=== PATIENT | female | born 1935 | race Caucasian/White ===

== ENCOUNTER → 2018-04-09 09:50 | Outpatient (CLI) | payer MEDICARE, SELFPAY ==
--- NOTE | 2018-04-09 | DI.MG.S_ITS ---
UNILATERAL RIGHT DIGITAL SCREENING MAMMOGRAM 3D/2D WITH CAD POST MASTECTOMY: 04/09/2018 CLINICAL: Routine screening. Personal history of left breast cancer. Comparison is made to exams dated: 01/11/2017 mammogram, 11/22/2015 mammogram, and 03/23/2014 mammogram - [facility]. There are scattered fibroglandular elements in the right breast. Current study was also evaluated with a Computer Aided Detection (CAD) system. No significant masses, calcifications, or other findings are seen in the breast. There has been no significant interval change. IMPRESSION: NEGATIVE There is no mammographic evidence of malignancy. A 1 year screening mammogram is recommended. This exam was interpreted at Station ID: [id number]. NOTE: For mammograms, a report in lay terms will be sent to the patient. Approximately 15% of breast malignancies will not be visualized mammographically. In the management of a palpable breast mass, a negative mammogram must not discourage biopsy of a clinically suspicious lesion. Electronically Signed By: Rosalia lopez/ravinder:04/09/2018 11:25:15 letter sent: Normal Exam ACR BI-RADS Category 1: Negative 3341F
== END ==
PROVIDERS: PCP Family Medicine; Visit Provider Family Medicine
DX: Z12.31 Encounter for screening mammogram for malignant neoplasm of breast (principal); Z85.3 Personal history of malignant neoplasm of breast
CPT/HCPCS: 77063; 77065

== ENCOUNTER 2018-05-14 09:46 | Day surgery (SDC) | payer MEDICARE, SELFPAY ==
--- NOTE | 2018-05-14 | PATH_ITS ---
[facility] Accession Number: [id number] . 01 Material submitted: . RANDOM COLON BIOPSY . 02 Diagnosis: Random Colon Biopsies: Changes consistent with collagenous colitis. . . COMMENT: Case reviewed by Dr. Robbie Wilburn, who agrees with the diagnosis. MRV/05/15/2018 . 02 Electronically signed: . Regulo Kumar MD, Pathologist NPI- [id number] . 01 Gross description: . Received one formalin-filled container labeled with the patient's name and labeled random colon. The specimen consists of multiple less than 0.1 cm to 0.3 cm portions of tissue, entirely submitted in one cassette. (DC:[id number]) /FRR . 02 Pathologist provided ICD-10: K52.89 . 02 CPT . 915250 Performed at: 01 [facility] [address] [facility], [place], [place] [id number] MD Vamshi Whitney MD Phone: [phone] Performed at: 02 [facility] [address] [place], [place] [id number] MD Italo Mayen MD Phone: [phone]
[2018-05-14] MEDS: SODIUM CHLORIDE 0.9% 1,000 ML 200 ML IV (10:10)
[2018-05-14 10:42] VITALS: BP 133/77; PULSE 64; RESP 18; TEMP 36.1; O2SAT 94
[2018-05-14] MEDS: TETRACAINE/BENZOCAINE/BUTAMBEN (CETACAINE) BOTTLE 1 SPRAY TOP (10:59)
--- NOTE | 2018-05-14 10:59 | PM.HP.1 ---
History of Present Illness Date Patient Seen: 05/14/18 Time Patient Seen: 10:45 Chief complaint: egd colonoscopy [id number] Narrative: Patient is a woman her for an EGD and colonoscopy. She has chronic reflux disease and has had some changes in her bowel habits. Patient History Medical History Essential hypertension with goal blood pressure less than 130/85 (Chronic) Hypothyroidism (Chronic) History of left breast cancer (Resolved) History of endometriosis (Inactive) Surgical History H/O hysterectomy for benign disease (Resolved) History of 3 sections (Resolved) History of appendectomy (Resolved) History of modified radical mastectomy (Resolved) History of total bilateral knee replacement (Resolved) Family & Social History Family History: Reviewed 05/14/18 by Onesimo Vieira MD Social History: household members spouse Tobacco & Substance use: Smoking Status Never smoker alcohol intake current Meds Home Medications Medication Instructions Recorded Confirmed Type FLUNISOLIDE 250MCG INHALER- 1 spray INH Q DAY #0 08/04/07 05/14/18 History (Aerobid) MULTIVITAMIN (Multivitamin 1 cap PO EVERY DAY #0 08/04/07 05/14/18 History -) CHOLECALCIFEROL (VITAMIN D3) 1,000 units PO QDAY #0 03/05/13 05/14/18 History (VITAMIN D3) Fish Oil (FISH OIL~) 1,200 mg PO QDAY #0 03/05/13 05/14/18 History [VITAMIN B 12] 1 cc IM [id number] #0 03/05/13 05/14/18 History aspirin 81 mg PO QDAY #0 03/05/13 05/14/18 History cyclosporine [Restasis] 1 drp OPHTH QAM #0 03/05/13 05/14/18 History ibuprofen [Advil] 200 mg PO QDAYP PRN #0 03/05/13 05/14/18 History metoprolol tartrate 12.5 mg PO QDAYP #0 03/05/13 05/14/18 History calcium carbonate 600 mg calcium 600 mg PO BID tab 04/12/18 05/14/18 History (1,500 mg) tablet famotidine 10 mg tablet 10 mg PO PRN PRN 04/12/18 05/14/18 History ferrous gluconate 324 mg (36 mg 324 mg PO DAILY tab 04/12/18 05/14/18 History iron) tablet levothyroxine 50 mcg tablet See Label Instructions .ROUTE 04/12/18 05/14/18 History .COMPLEX nystatin 100,000 unit/gram topical 1 applictn TOP BID PRN 04/12/18 05/14/18 History cream fexofenadine [Corina Allergy] 180 mg PO DAILY 05/14/18 05/14/18 History levothyroxine See Label Instructions .ROUTE 05/14/18 05/14/18 History .COMPLEX methylcellulose (laxative) 500 mg PO DAILY 05/14/18 05/14/18 History [Citrucel] psyllium husk [Metamucil] 0.4 g PO DAILY 05/14/18 05/14/18 History Allergies Allergy/AdvReac Type Severity Reaction Status Date / Time ciprofloxacin [From CIPRO] Allergy Mild itching Verified 05/14/18 10:38 atorvastatin [From Lipitor] Allergy muscles Verified 04/12/18 13:21 stop working Sulfa (Sulfonamide AdvReac Severe n\v Verified 05/14/18 10:38 Antibiotics) [SULFA (SULFONAMIDE ANTIBIOTICS)] adhesive [ADHESIVE] AdvReac Mild some Verified 05/14/18 10:38 tapes, redness and itching hydroxyzine [From Vistaril] AdvReac bad Verified 04/12/18 13:21 muscle spasms levothyroxine AdvReac colitis Verified 04/12/18 13:21 and diarrhea Review of Systems Review of Systems Denies any cardiopulmonary neurovascular symptoms at this time. Most of her symptoms relate to her abdomen and change in her bowel habits. She alternates between constipation and diarrhea. She has a history of lymphocytic colitis. Exam Vital Signs (past 8 hours): - 05/14/18 10:42 Temperature 96.9 F L Pulse Rate 64 Respiratory Rate 18 Blood Pressure 133/77 Pulse Oximetry 94 Oxygen Delivery Method Room Air Narrative Exam Narrative: Petite cooperative woman in no apparent distress. Lungs are clear to auscultation. Heart regular rate and rhythm without murmur gallop. Abdomen is scaphoid soft nontender without mass. Patient is alert and oriented x3. Assessment & Plan Plan: Assessment/Plan Narrative: For EGD and colonoscopy. I have discussed the procedure and the rationale with the patient including risks of bleeding, perforation which would necessitate a major operation, failure to find remove all lesions and the potential to tattoo. They appeared to understand and wished to proceed.
[2018-05-14] MEDS: LIDOCAINE 4% SOLN 50 ML 20 ML TOP (11:00)
--- NOTE | 2018-05-14 11:02 | PM.PREOP ---
Pre-operative Note Interval Note Pre-op Check: Yes History & Physical exam performed today by Physician Changes: No ASA Class (for procedural sedation): III
[2018-05-14] MEDS: MIDAZOLAM 5 MG/5 ML VIAL IV (11:35)
[2018-05-14] MEDS: fentaNYL 250 MCG/5 ML INJ IV (11:36)
[2018-05-14 11:47] VITALS: BP 83/49; PULSE 60; RESP 11; TEMP 36.6; O2SAT 92
[2018-05-14 11:52] VITALS: BP 87/56; PULSE 79; RESP 14; O2SAT 93
--- NOTE | 2018-05-14 11:53 | P.OP.ENDO_ITS ---
Operative Date/Time/Diagnoses Date of procedure: 05/14/18 Time of procedure: 11:43 Pre-op diagnosis: Chronic reflux with cough. And voice changes. Screening exam. Change in bowel habits. History of lymphocytic colitis. Post-op diagnosis: same (Very granular surface of the colon right worse than left. Random biopsies taken. Tortuous colon. 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 Change in bowel habits. Surgeon: Onesimo Vieira Procedure Notes SCOAP/Timeout: Performed Procedure in detail: The patient had topical anesthetic applied to oropharynx. She was placed in left lateral decubitus position and underwent IV sedation directed by the surgeon consisting of fentanyl and Versed. A bite block was inserted and the scope was advanced through it. I examined the cord structures and supraglottic larynx and everything looked normal. However on the right side there appeared to be a diverticulum in the pharynx adjacent to the larynx. I could not see a similar structure on the opposite side. It was wide mouthed and shallow. The esophagus was unremarkable. GE junction was noted at[31 cm from the incisors.]. The stomach insufflated well. There were no lesions seen in the body, antrum or at the incisura. The pyloric channel was [patent]. The duodenum was unremarkable to the 4th part except for perhaps some mild duodenitis of the bulb. The scope was brought back into the stomach and retroflexed. The proximal stomach appeared to be normal. I really could not see any evidence of a hiatal hernia.. The scope was straightened and brought out through the esophagus again. No lesions were seen. The scope was removed very slowly with no additional findings noted. the patient tolerated the procedure well. The patient was repositioned and given additional sedation. The patient was placed in the left lateral decubitus position and underwent IV sedation directed by the surgeon consisting of fentanyl and Versed. Digital exam was[ unremarkable]. The scope was inserted and advanced through the rectum into the sigmoid, descending, transverse, and ascending colon.[The patient had to be repositioned and a stiffener inserted in order to get all the way to the cecum. The colon was somewhat tortuous.]. The cecum was reached identified by the ileocecal valve and the appendiceal opening. The colon surface mucosa was somewhat granular especially on the right side. In fact the cecum was worse than anything and adjacent to the appendiceal opening was quite granular. I did random biopsies of the cecum The scope was gradually brought out and I did random biopsies as I came out. No Polyps were found. The scope ultimately was retroflexed in the rectum. The appearance was[normal except for internal hemorrhoids.]. The scope was removed and the patient tolerated the procedure well Findings: internal hemorrhoids and other findings (Diverticulum adjacent to the larynx. Granular surface of the colon.) Specimen(s): other (Random colon biopsies) Complications: none Recommendations: Other recommendation (Patient may not need any further studies. ) Follow up: as needed Disposition: PACU
[2018-05-14 11:57] VITALS: BP 95/64; PULSE 64; RESP 12; TEMP 36.6; O2SAT 93
[2018-05-14 12:15] VITALS: BP 103/57; PULSE 65; RESP 14; TEMP 36.6; O2SAT 95
[2018-05-14 12:45] VITALS: BP 102/68; PULSE 65; RESP 18; O2SAT 100
--- NOTE | 2018-05-14 13:01 | SUR.PHASEII ---
pt d/peg with pt able to stand and dress without difficulty. pt taking po fluids and crackers without difficulty. denies any complaints.
== END 2018-05-14 13:00 | disposition home or self-care (01) ==
PROVIDERS: PCP Family Medicine; Visit Provider Specialist
PROC: 0DJ08ZZ Inspection of Upper Intestinal Tract, Via Natural or Artificial Opening Endoscopic (ICD-10-PCS; CPT 43235; principal; 2018-05-14 11:45)
PROC: 0DJD8ZZ Inspection of Lower Intestinal Tract, Via Natural or Artificial Opening Endoscopic (ICD-10-PCS; CPT 45378; 2018-05-14 11:45)
DX: K52.89 Other specified noninfective gastroenteritis and colitis (principal); R49.9 Unspecified voice and resonance disorder; K21.9 Gastro-esophageal reflux disease without esophagitis; Z87.19 Personal history of other diseases of the digestive system; I10 Essential (primary) hypertension; E03.9 Hypothyroidism, unspecified; K64.8 Other hemorrhoids; Q39.6 Congenital diverticulum of esophagus
CPT/HCPCS: 45380; 43235; 88305; J2250; J3010

== ENCOUNTER → 2018-05-22 08:48 | Outpatient (CLI) | payer MEDICARE, SELFPAY ==
[2018-05-22 09:27] LABS: Alanine Aminotransferase 25 IU/L (9-52); Albumin 4.2 g/dL (3.5-5.0); Albumin Globulin Ratio 1.4 (1.0-2.8); Alkaline Phosphatase 81 U/L (38-126); Aspartate Aminotransferase 34 IU/L (14-36); BUN Creatinine Ratio 22.9 (6-22); Bilirubin Total 0.6 mg/dL (0.2-1.3); Blood Urea Nitrogen 16 mg/dL (7-17); Calcium 9.6 mg/dL (8.4-10.2); Carbon Dioxide 31 mmol/L (22-32); Chloride 102 mmol/L (98-107); Cholesterol 207 mg/dL (140-199); Estimated Glomerular Filt Rate > 60.0 mL/min (>60); Glucose 87 mg/dL (80-110); HDL Cholesterol 74 mg/dL (40-60); HEMOLYSIS < 15 (0-50); LDL Cholesterol Calculated 121 mg/dL (<100); Potassium 4.2 mmol/L (3.4-5.1); Sodium 142 mmol/L (137-145); Total Protein 7.2 g/dL (6.3-8.2); Triglycerides 62 mg/dL (35-150)
[2018-05-22 10:07] LABS: Free T4, Direct Thyroxine 1.33 ng/dL (0.78-2.19)
[2018-05-22 10:21] LABS: Thyroid Stimulating Hormone 0.86 uIU/mL (0.47-4.68)
== END ==
PROVIDERS: PCP Family Medicine; Visit Provider Family Medicine
DX: E03.9 Hypothyroidism, unspecified (principal); E78.5 Hyperlipidemia, unspecified; D64.9 Anemia, unspecified
CPT/HCPCS: 36415; 80053; 80061; 84439; 84443

== ENCOUNTER → 2018-06-26 10:34 | Outpatient (CLI) | payer MEDICARE, SELFPAY ==
--- NOTE | 2018-06-26 | DI.RAD.S_ITS ---
PROCEDURE: XR CHEST 2V INDICATIONS: COUGH TECHNIQUE: 2 views of the chest were acquired. COMPARISON: None. FINDINGS: Surgical changes and devices: None. Lungs and pleura: No pleural effusions or pneumothorax. Lungs are clear. Mediastinum: Mediastinal contours are normal. Heart size is normal. Bones and chest wall: No suspicious bony abnormalities. Soft tissues appear unremarkable. IMPRESSION: Normal for age. Dictated by: Cory Patel M.D. on 06/26/2018 at 11:47 Approved by: Cory Patel M.D. on 06/26/2018 at 11:47
== END ==
PROVIDERS: PCP Family Medicine; Visit Provider Family Medicine
DX: R05 Cough (principal)
CPT/HCPCS: 71046

== ENCOUNTER 2018-08-13 10:30 | Outpatient (RCR) | payer MEDICARE, SELFPAY | END 2018-08-13 15:05 | LOC: SP 10:30 | PROVIDERS: Family Provider Family Medicine; PCP Family Medicine; Visit Provider Otolaryngology | DX: R49.0 Dysphonia (principal) | CPT/HCPCS: 92507; 92524 ==

== ENCOUNTER → 2018-12-18 09:09 | Outpatient (CLI) | payer MEDICARE, SELFPAY ==
[2018-12-18 10:43] LABS: Alanine Aminotransferase 25 IU/L (9-52); Albumin 4.2 g/dL (3.5-5.0); Albumin Globulin Ratio 1.4 (1.0-2.8); Alkaline Phosphatase 78 U/L (38-126); Aspartate Aminotransferase 36 IU/L (14-36); BUN Creatinine Ratio 27.1 (6-22); Bilirubin Total 0.5 mg/dL (0.2-1.3); Blood Urea Nitrogen 19 mg/dL (7-17); Calcium 9.6 mg/dL (8.4-10.2); Carbon Dioxide 28 mmol/L (22-32); Chloride 102 mmol/L (98-107); Cholesterol 218 mg/dL (140-199); Estimated Glomerular Filt Rate > 60.0 mL/min (>60); Globulin 3.1 g/dL (1.7-4.1); Glucose 85 mg/dL (80-110); HDL Cholesterol 81 mg/dL (40-60); HEMOLYSIS < 15 (0-50); LDL Cholesterol Calculated 126 mg/dL (<100); Potassium 4.6 mmol/L (3.4-5.1); Sodium 137 mmol/L (137-145); Total Protein 7.3 g/dL (6.3-8.2); Triglycerides 57 mg/dL (35-150)
[2018-12-18 11:05] LABS: Add Manual Diff / Slide Review NO; Basophils Absolute Auto 0 /uL (0-100); Eosinophils Absolute Auto 100 /uL (0-450); Eosinophils Percent Auto 3.7 % (2-4); Hematocrit 38.9 % (36-46); Hemoglobin 13.4 g/dL (12.0-16.0); Lymphocytes Absolute Auto 1400 /uL (1100-4500); Lymphocytes Percent Auto 36.3 % (25-40); Mean Corpuscular HGB Conc 34.6 % (30-36); Mean Corpuscular Volume 92.6 fL (80-100); Monocytes Absolute Auto 400 /uL (0-900); Monocytes Percent Auto 10.5 % (3-14); Neutrophils Absolute Auto 1800 /uL (1500-7000); Neutrophils Percent Auto 48.5 % (50-75); Platelet Count 234 X10^3/uL (150-400); Red Cell Distribution Width 12.8 % (11.6-14.8); White Blood Cell Count 3.8 X10^3/uL (4.5-11.0)
[2018-12-18 11:54] LABS: Free T4, Direct Thyroxine 1.49 ng/dL (0.78-2.19)
[2018-12-18 12:08] LABS: Thyroid Stimulating Hormone 0.54 uIU/mL (0.47-4.68)
== END ==
PROVIDERS: PCP Family Medicine; Visit Provider Family Medicine
DX: E03.9 Hypothyroidism, unspecified (principal); E78.5 Hyperlipidemia, unspecified; D64.9 Anemia, unspecified
CPT/HCPCS: 36415; 80053; 80061; 84439; 84443; 85025

== ENCOUNTER → 2019-04-11 11:30 | Outpatient (CLI) | payer MEDICARE, SELFPAY ==
--- NOTE | 2019-04-11 | DI.MG.S_ITS ---
UNILATERAL RIGHT DIGITAL SCREENING MAMMOGRAM 3D/2D WITH CAD: 04/11/2019 CLINICAL: Routine screening. Personal history of left breast cancer. Comparison is made to exams dated: 04/09/2018 mammogram, 01/11/2017 mammogram, 11/22/2015 mammogram, 03/23/2014 mammogram, 02/28/2013 mammogram, and 06/14/2010 mammogram - [facility]. There are scattered fibroglandular elements in right breast. Current study was also evaluated with a Computer Aided Detection (CAD) system. No significant masses, calcifications, or other findings are seen in the breast. There has been no significant interval change. IMPRESSION: NEGATIVE There is no mammographic evidence of malignancy. A 1 year screening mammogram is recommended. This exam was interpreted at Station ID: [id number]. NOTE: For mammograms, a report in lay terms will be sent to the patient. Approximately 15% of breast malignancies will not be visualized mammographically. In the management of a palpable breast mass, a negative mammogram must not discourage biopsy of a clinically suspicious lesion. Electronically Signed By: Rolo mcnulty/ravinder:04/11/2019 12:39:36 letter sent: Normal Exam ACR BI-RADS Category 1: Negative 3341F
== END ==
PROVIDERS: PCP Family Medicine; Visit Provider Family Medicine
DX: Z12.31 Encounter for screening mammogram for malignant neoplasm of breast (principal); Z85.3 Personal history of malignant neoplasm of breast
CPT/HCPCS: 77063; 77067

== ENCOUNTER → 2019-06-24 09:10 | Outpatient (CLI) | payer MEDICARE, SELFPAY ==
[2019-06-24 10:45] LABS: Add Manual Diff / Slide Review NO; Basophils Absolute Auto 0 /uL (0-100); Basophils Percent Auto 0.5 % (0-2); Eosinophils Absolute Auto 100 /uL (0-450); Eosinophils Percent Auto 3.4 % (2-4); Hematocrit 33.4 % (36-46); Hemoglobin 13.5 g/dL (12.0-16.0); Lymphocytes Absolute Auto 1100 /uL (1100-4500); Lymphocytes Percent Auto 32.3 % (25-40); Mean Corpuscular HGB Conc 40.6 % (30-36); Mean Corpuscular Hemoglobin 40.4 PG (26-34); Mean Corpuscular Volume 99.6 fL (80-100); Monocytes Absolute Auto 400 /uL (0-900); Monocytes Percent Auto 10.2 % (3-14); Neutrophils Absolute Auto 1900 /uL (1500-7000); Neutrophils Percent Auto 53.6 % (50-75); Platelet Count 248 X10^3/uL (150-400); Red Blood Cell Count 3.35 X10^6/uL (4.0-5.2); Red Cell Distribution Width 12.8 % (11.6-14.8); White Blood Cell Count 3.5 X10^3/uL (4.5-11.0)
[2019-06-24 10:56] LABS: Alanine Aminotransferase 23 IU/L (9-52); Albumin 4.4 g/dL (3.5-5.0); Albumin Globulin Ratio 1.4 (1.0-2.8); Alkaline Phosphatase 88 U/L (38-126); Aspartate Aminotransferase 39 IU/L (14-36); Bilirubin Total 0.6 mg/dL (0.2-1.3); Blood Urea Nitrogen 21 mg/dL (7-17); Calcium 9.4 mg/dL (8.4-10.2); Carbon Dioxide 28 mmol/L (22-32); Chloride 102 mmol/L (98-107); Cholesterol 218 mg/dL (140-199); Estimated Glomerular Filt Rate > 60.0 mL/min (>60); Globulin 3.1 g/dL (1.7-4.1); Glucose 87 mg/dL (80-110); HDL Cholesterol 76 mg/dL (40-60); HEMOLYSIS < 15 (0-50); LDL Cholesterol Calculated 131 mg/dL (<100); Potassium 4.6 mmol/L (3.4-5.1); Sodium 138 mmol/L (137-145); Total Protein 7.5 g/dL (6.3-8.2); Triglycerides 57 mg/dL (35-150)
[2019-06-24 11:28] LABS: Free T4, Direct Thyroxine 1.47 ng/dL (0.78-2.19)
[2019-06-24 11:42] LABS: Thyroid Stimulating Hormone 0.82 uIU/mL (0.47-4.68)
== END ==
PROVIDERS: PCP Family Medicine; Visit Provider Family Medicine
DX: E03.9 Hypothyroidism, unspecified (principal); E78.5 Hyperlipidemia, unspecified; D70.9 Neutropenia, unspecified
CPT/HCPCS: 36415; 80053; 80061; 84439; 84443; 85025

== ENCOUNTER → 2019-12-26 09:17 | Outpatient (CLI) | payer MEDICARE, SELFPAY ==
[2019-12-26 10:27] LABS: Add Manual Diff / Slide Review NO; Basophils Absolute Auto 100 /uL (0-100); Basophils Percent Auto 1.2 % (0-2); Eosinophils Absolute Auto 200 /uL (0-450); Eosinophils Percent Auto 3.3 % (2-4); Hematocrit 38.3 % (36-46); Hemoglobin 13.4 g/dL (12.0-16.0); Lymphocytes Absolute Auto 1700 /uL (1100-4500); Mean Corpuscular HGB Conc 35.1 % (30-36); Mean Corpuscular Hemoglobin 32.8 PG (26-34); Mean Corpuscular Volume 93.6 fL (80-100); Monocytes Absolute Auto 600 /uL (0-900); Monocytes Percent Auto 12.1 % (3-14); Neutrophils Absolute Auto 2600 /uL (1500-7000); Neutrophils Percent Auto 50.4 % (50-75); Platelet Count 267 X10^3/uL (150-400); Red Blood Cell Count 4.09 X10^6/uL (4.0-5.2); Red Cell Distribution Width 13.3 % (11.6-14.8); White Blood Cell Count 5.2 X10^3/uL (4.5-11.0)
[2019-12-26 10:43] LABS: Alanine Aminotransferase 23 IU/L (<35); Albumin 4.6 g/dL (3.5-5.0); Albumin Globulin Ratio 1.4 (1.0-2.8); Alkaline Phosphatase 104 U/L (38-126); Aspartate Aminotransferase 36 IU/L (14-36); BUN Creatinine Ratio 32.3 (6-22); Bilirubin Total 0.4 mg/dL (0.2-1.3); Blood Urea Nitrogen 21 mg/dL (7-17); Calcium 9.6 mg/dL (8.4-10.2); Carbon Dioxide 25 mmol/L (22-32); Chloride 104 mmol/L (98-107); Cholesterol 220 mg/dL (140-199); Estimated Glomerular Filt Rate > 60.0 mL/min (>60); Globulin 3.3 g/dL (1.7-4.1); Glucose 97 mg/dL (80-110); HDL Cholesterol 78 mg/dL (40-60); HEMOLYSIS < 15 (0-50); LDL Cholesterol Calculated 131 mg/dL (<100); Potassium 4.4 mmol/L (3.4-5.1); Sodium 136 mmol/L (137-145); Total Protein 7.9 g/dL (6.3-8.2); Triglycerides 55 mg/dL (35-150)
[2019-12-26 11:38] LABS: Free T4, Direct Thyroxine 1.34 ng/dL (0.78-2.19)
[2019-12-26 11:52] LABS: Thyroid Stimulating Hormone 1.28 uIU/mL (0.47-4.68)
== END ==
PROVIDERS: PCP Family Medicine; Referring Provider Family Medicine; Visit Provider Family Medicine
DX: E03.9 Hypothyroidism, unspecified (principal); E78.5 Hyperlipidemia, unspecified; D70.9 Neutropenia, unspecified; D64.9 Anemia, unspecified
CPT/HCPCS: 36415; 80053; 80061; 84439; 84443; 85025

== ENCOUNTER → 2020-05-26 16:45 | Outpatient (CLI) | payer MEDICARE, SELFPAY ==
--- NOTE | 2020-05-26 | DI.MG.S_ITS ---
UNILATERAL RIGHT DIGITAL SCREENING MAMMOGRAM 3D/2D WITH CAD: 05/26/2020 CLINICAL: Routine screening. Breast cancer. Comparison is made to exams dated: 04/11/2019 mammogram, 04/09/2018 mammogram, and 01/11/2017 mammogram - [facility]. There are scattered fibroglandular elements in right breast. Current study was also evaluated with a Computer Aided Detection (CAD) system. No significant masses, calcifications, or other findings are seen in the breast. There has been no significant interval change. IMPRESSION: NEGATIVE There is no mammographic evidence of malignancy. A 1 year screening mammogram is recommended. This exam was interpreted at Station ID: [id number]. NOTE: For mammograms, a report in lay terms will be sent to the patient. Approximately 15% of breast malignancies will not be visualized mammographically. In the management of a palpable breast mass, a negative mammogram must not discourage biopsy of a clinically suspicious lesion. Electronically Signed By: James dunlap/ravinder:05/27/2020 07:49:45 letter sent: Normal Exam ACR BI-RADS Category 1: Negative 3341F
== END ==
PROVIDERS: PCP Family Medicine; Referring Provider Family Medicine; Visit Provider Family Medicine
DX: Z12.31 Encounter for screening mammogram for malignant neoplasm of breast (principal); Z85.3 Personal history of malignant neoplasm of breast
CPT/HCPCS: 77063; 77067

== ENCOUNTER → 2020-06-10 09:22 | Outpatient (CLI) | payer MEDICARE, SELFPAY ==
[2020-06-10 10:48] LABS: Add Manual Diff / Slide Review NO; Basophils Absolute Auto 200 /uL (0-100); Basophils Percent Auto 3.3 % (0-2); Eosinophils Absolute Auto 100 /uL (0-450); Eosinophils Percent Auto 1.9 % (2-4); Hematocrit 37.6 % (36-46); Hemoglobin 12.8 g/dL (12.0-16.0); Lymphocytes Absolute Auto 1600 /uL (1100-4500); Lymphocytes Percent Auto 27.5 % (25-40); Mean Corpuscular HGB Conc 33.9 % (30-36); Mean Corpuscular Hemoglobin 31.6 PG (26-34); Mean Corpuscular Volume 93.2 fL (80-100); Monocytes Absolute Auto 500 /uL (0-900); Monocytes Percent Auto 8.1 % (3-14); Neutrophils Absolute Auto 3500 /uL (1500-7000); Neutrophils Percent Auto 59.2 % (50-75); Platelet Count 251 X10^3/uL (150-400); Red Blood Cell Count 4.03 X10^6/uL (4.0-5.2); Red Cell Distribution Width 13.2 % (11.6-14.8)
[2020-06-10 11:01] LABS: Alanine Aminotransferase 22 IU/L (<35); Albumin Globulin Ratio 1.3 (1.0-2.8); Alkaline Phosphatase 95 U/L (38-126); Aspartate Aminotransferase 33 IU/L (14-36); BUN Creatinine Ratio 34.3 (6-22); Bilirubin Total 0.5 mg/dL (0.2-1.3); Blood Urea Nitrogen 24 mg/dL (7-17); Calcium 9.3 mg/dL (8.4-10.2); Carbon Dioxide 28 mmol/L (22-32); Chloride 102 mmol/L (98-107); Estimated Glomerular Filt Rate > 60.0 mL/min (>60); Glucose 91 mg/dL (80-110); HEMOLYSIS < 15 (0-50); Potassium 4.5 mmol/L (3.4-5.1); Sodium 136 mmol/L (137-145)
[2020-06-10 11:17] LABS: Free T4, Direct Thyroxine 1.28 ng/dL (0.78-2.19)
[2020-06-10 11:31] LABS: Thyroid Stimulating Hormone 0.779 uIU/mL (0.47-4.68)
== END ==
PROVIDERS: PCP Family Medicine; Referring Provider Family Medicine; Visit Provider Family Medicine
DX: D70.9 Neutropenia, unspecified (principal); D64.9 Anemia, unspecified; D75.89 Other specified diseases of blood and blood-forming organs; Z85.3 Personal history of malignant neoplasm of breast; N32.81 Overactive bladder; E03.9 Hypothyroidism, unspecified; I48.0 Paroxysmal atrial fibrillation
CPT/HCPCS: 36415; 80053; 84439; 84443; 85025

== ENCOUNTER → 2020-06-28 14:49 | Outpatient (CLI) | payer MEDICARE, SELFPAY ==
--- NOTE | 2020-06-28 | DI.MG.S_ITS ---
UNILATERAL RIGHT DIGITAL DIAGNOSTIC MAMMOGRAM 3D/2D POST MASTECTOMY: 06/28/2020 CLINICAL: Right breast mass. Comparison is made to exams dated: 05/26/2020 mammogram, 04/11/2019 mammogram, and 04/09/2018 mammogram - [facility]. There are scattered fibroglandular elements in right breast. No significant masses, calcifications, or other findings are seen in the breast. Specifically, no finding to correspond to the patient's palpable abnormality. IMPRESSION: INCOMPLETE: NEEDS ADDITIONAL IMAGING EVALUATION There is no abnormality seen in the right breast to correspond with the palpable abnormality at 10 o'clock, however, ultrasound is recommended. This was performed immediately following this exam. Future imaging is recommended as follows: 05/27/2021 screening mammogram. This exam was interpreted at Station ID: [id number]. NOTE: For mammograms, a report in lay terms will be sent to the patient. Approximately 15% of breast malignancies will not be visualized mammographically. In the management of a palpable breast mass, a negative mammogram must not discourage biopsy of a clinically suspicious lesion. Electronically Signed By: Keren noyola/:06/28/2020 15:33:07 ACR BI-RADS Category 0: Incomplete [id number]
--- NOTE | 2020-06-28 | DI.US.S_ITS ---
ULTRASOUND OF RIGHT BREAST: 06/28/2020 CLINICAL: Palpable right breast lump and focal pain. Comparison is made to exams dated: 06/28/2020 mammogram, 05/26/2020 mammogram, 04/11/2019 mammogram, 04/09/2018 mammogram, 01/11/2017 mammogram, and 11/22/2015 mammogram - [facility]. Real-time ultrasound of the right breast was performed. [place] scale images of the real-time examination were reviewed. No significant abnormalities were seen sonographically in the right breast. Specifically, no finding to correspond to the patient's palpable abnormality. IMPRESSION: NEGATIVE There is no sonographic correlate to the patient's palpable abnormality and no evidence of malignancy. Return to annual mammogram screening schedule is recommended. 05/27/2021 Findings and recommendations were conveyed to the patient at time of exam. This exam was interpreted at Station ID: [id number]. Electronically Signed By: Keren noyola/:06/28/2020 16:09:21 letter sent: Normal Exam Ultrasound BI-RADS: 1 Negative
== END ==
PROVIDERS: PCP Family Medicine; Referring Provider Family Medicine; Visit Provider Family Medicine
DX: R92.8 Other abnormal and inconclusive findings on diagnostic imaging of breast (principal); N63.10 Unspecified lump in the right breast, unspecified quadrant
CPT/HCPCS: 76642; 77065; G0279

== ENCOUNTER → 2020-09-28 09:02 | Outpatient (CLI) | payer MEDICARE, SELFPAY ==
[2020-09-28 10:44] LABS: Alanine Aminotransferase 25 IU/L (<35); Albumin 4.2 g/dL (3.5-5.0); Albumin Globulin Ratio 1.3 (1.0-2.8); Alkaline Phosphatase 94 U/L (38-126); Aspartate Aminotransferase 34 IU/L (14-36); BUN Creatinine Ratio 33.3 (6-22); Bilirubin Total 0.3 mg/dL (0.2-1.3); Blood Urea Nitrogen 23 mg/dL (7-17); Calcium 9.6 mg/dL (8.4-10.2); Carbon Dioxide 30 mmol/L (22-32); Chloride 104 mmol/L (98-107); Estimated Glomerular Filt Rate > 60.0 mL/min (>60); Globulin 3.2 g/dL (1.7-4.1); Glucose 96 mg/dL (80-110); HEMOLYSIS < 15 (0-50); Potassium 4.6 mmol/L (3.4-5.1); Sodium 135 mmol/L (137-145); Total Protein 7.4 g/dL (6.3-8.2)
[2020-09-28 10:47] LABS: Add Manual Diff / Slide Review NO; Basophils Absolute Auto 0 /uL (0-100); Basophils Percent Auto 0.5 % (0-2); Eosinophils Absolute Auto 100 /uL (0-450); Eosinophils Percent Auto 2.5 % (2-4); Hematocrit 39.6 % (36-46); Hemoglobin 13.3 g/dL (12.0-16.0); Lymphocytes Absolute Auto 1600 /uL (1100-4500); Lymphocytes Percent Auto 34.2 % (25-40); Mean Corpuscular HGB Conc 33.5 % (30-36); Mean Corpuscular Hemoglobin 31.4 PG (26-34); Mean Corpuscular Volume 93.9 fL (80-100); Monocytes Absolute Auto 600 /uL (0-900); Neutrophils Absolute Auto 2400 /uL (1500-7000); Neutrophils Percent Auto 50.8 % (50-75); Platelet Count 251 X10^3/uL (150-400); Red Blood Cell Count 4.22 X10^6/uL (4.0-5.2); White Blood Cell Count 4.8 X10^3/uL (4.5-11.0)
[2020-09-28 11:48] LABS: TSH w/ Reflex to FT4 1.01 uIU/mL (0.47-4.68)
== END ==
PROVIDERS: PCP Internal Medicine; Referring Provider Internal Medicine; Visit Provider Internal Medicine
DX: I48.91 Unspecified atrial fibrillation (principal); E03.9 Hypothyroidism, unspecified
CPT/HCPCS: 36415; 80053; 84443; 85025

== ENCOUNTER → 2020-10-01 10:43 | Outpatient (CLI) | payer MEDICARE, SELFPAY ==
[2020-10-01] MEDS: COVID-19 VACC #1, MRNA(MOD) 100 MCG/0.5 ML VIAL IM (10:48)
== END ==
PROVIDERS: PCP Internal Medicine; Visit Provider Internal Medicine
DX: Z23 Encounter for immunization (principal)
CPT/HCPCS: 0011A; 91301

== ENCOUNTER → 2020-10-29 12:03 | Outpatient (CLI) | payer MEDICARE, SELFPAY ==
[2020-10-29] MEDS: COVID-19 VACC #2, MRNA(MOD) 100 MCG/0.5 ML VIAL IM (12:11)
== END ==
PROVIDERS: PCP Internal Medicine; Visit Provider Internal Medicine
DX: Z23 Encounter for immunization (principal)
CPT/HCPCS: 0012A; 91301

== ENCOUNTER → 2021-03-22 14:09 | Outpatient (CLI) | payer MEDICARE, SELFPAY ==
[2021-03-22 15:25] LABS: Alanine Aminotransferase 29 IU/L (<35); Albumin 4.1 g/dL (3.5-5.0); Albumin Globulin Ratio 1.4 (1.0-2.8); Alkaline Phosphatase 87 U/L (38-126); Aspartate Aminotransferase 38 IU/L (14-36); BUN Creatinine Ratio 28.1 (6-22); Bilirubin Total 0.4 mg/dL (0.2-1.3); Blood Urea Nitrogen 18 mg/dL (7-17); Calcium 9.8 mg/dL (8.4-10.2); Carbon Dioxide 28 mmol/L (22-32); Chloride 102 mmol/L (98-107); Estimated Glomerular Filt Rate > 60.0 mL/min (>60); Glucose 98 mg/dL (80-110); HEMOLYSIS < 15 (0-50); Potassium 4.6 mmol/L (3.4-5.1); Sodium 137 mmol/L (137-145); Total Protein 7.1 g/dL (6.3-8.2)
[2021-03-22 15:53] LABS: TSH w/ Reflex to FT4 0.53 uIU/mL (0.47-4.68)
[2021-03-22 16:28] LABS: Add Manual Diff / Slide Review NO; Basophils Absolute Auto 0 /uL (0-100); Basophils Percent Auto 0.5 % (0-2); Eosinophils Absolute Auto 100 /uL (0-450); Eosinophils Percent Auto 2.1 % (2-4); Hemoglobin 12.7 g/dL (12.0-16.0); Lymphocytes Absolute Auto 1500 /uL (1100-4500); Lymphocytes Percent Auto 29.2 % (25-40); Mean Corpuscular HGB Conc 34.3 % (30-36); Mean Corpuscular Hemoglobin 32.3 PG (26-34); Mean Corpuscular Volume 94.2 fL (80-100); Monocytes Absolute Auto 500 /uL (0-900); Monocytes Percent Auto 9.4 % (3-14); Neutrophils Absolute Auto 2900 /uL (1500-7000); Neutrophils Percent Auto 58.8 % (50-75); Platelet Count 240 X10^3/uL (150-400); Red Blood Cell Count 3.93 X10^6/uL (4.0-5.2); Red Cell Distribution Width 13.1 % (11.6-14.8)
== END ==
PROVIDERS: PCP Internal Medicine; Referring Provider Internal Medicine; Visit Provider Internal Medicine
DX: I48.20 Chronic atrial fibrillation, unspecified (principal); E03.9 Hypothyroidism, unspecified
CPT/HCPCS: 36415; 80053; 84443; 85025

== ENCOUNTER 2021-05-10 16:28 | Emergency (ER) | payer MEDICARE, SELFPAY ==
[2021-05-10 17:04] VITALS: BP 131/85; PULSE 68; RESP 18; TEMP 36.7; O2SAT 97; BMI 25.7
[2021-05-10 17:40] LABS: Add Manual Diff / Slide Review NO; Basophils Absolute Auto 0 /uL (0-100); Basophils Percent Auto 0.8 % (0-2); Eosinophils Absolute Auto 100 /uL (0-450); Eosinophils Percent Auto 2.1 % (2-4); Hematocrit 37.1 % (36-46); Hemoglobin 13.3 g/dL (12.0-16.0); Lymphocytes Absolute Auto 1400 /uL (1100-4500); Lymphocytes Percent Auto 24.8 % (25-40); Mean Corpuscular HGB Conc 35.9 % (30-36); Mean Corpuscular Hemoglobin 35.7 PG (26-34); Mean Corpuscular Volume 99.4 fL (80-100); Monocytes Absolute Auto 700 /uL (0-900); Monocytes Percent Auto 13.2 % (3-14); Neutrophils Absolute Auto 3300 /uL (1500-7000); Neutrophils Percent Auto 59.1 % (50-75); Platelet Count 260 X10^3/uL (150-400); Red Blood Cell Count 3.73 X10^6/uL (4.0-5.2); Red Cell Distribution Width 13.1 % (11.6-14.8); White Blood Cell Count 5.5 X10^3/uL (4.5-11.0)
[2021-05-10 17:54] LABS: Alanine Aminotransferase 29 IU/L (<35); Albumin 4.6 g/dL (3.5-5.0); Albumin Globulin Ratio 1.2 (1.0-2.8); Alkaline Phosphatase 104 U/L (38-126); Aspartate Aminotransferase 38 IU/L (14-36); BUN Creatinine Ratio 31.1 (6-22); Bilirubin Total 0.5 mg/dL (0.2-1.3); Blood Urea Nitrogen 19 mg/dL (7-17); Calcium 9.8 mg/dL (8.4-10.2); Carbon Dioxide 25 mmol/L (22-32); Chloride 102 mmol/L (98-107); Estimated Glomerular Filt Rate > 60.0 mL/min (>60); Globulin 3.9 g/dL (1.7-4.1); Glucose 84 mg/dL (80-110); HEMOLYSIS < 15 (0-50); Lipase 68 U/L (23-300); Potassium 4.2 mmol/L (3.4-5.1); Sodium 134 mmol/L (137-145); Total Protein 8.5 g/dL (6.3-8.2)
[2021-05-10] MEDS: ONDANSETRON 4 MG/2 ML INJ IV (18:32)
[2021-05-10 18:43] LABS: COVID19 - ADMIT (NP swab/PCR) Negative (Negative)
[2021-05-10 19:46] VITALS: BP 124/72; PULSE 66; RESP 16; O2SAT 95
--- NOTE | 2021-05-10 20:29 | ED_ITS ---
HPI - Abdominal Pain General Chief Complaint: Abdominal Pain Stated Complaint: hernia Time Seen by Provider: 05/10/21 20:20 Source: patient Mode of arrival: Ambulatory Limitations: no limitations History of Present Illness HPI narrative: This is a pleasant 86-year-old female who noted a lump in her left groin that showed up the last couple days it has been tender. She is our primary care today had ultrasound and was told she had an incarcerated hernia. Patient denies fevers or chills. No nausea or vomiting. She has pain localized to that area but does not have any abdominal pain. She states it has not red uced her gone back inside. She has had bowel movement she has been taking stool softener they have been mostly formed but sometimes thin. She denies any urinary symptoms. She is on Eliquis and metoprolol for atrial fibrillation as well as levothyroxine for hypothyroidism. She has not had her evening Eliquis dose. Her last or be fluid intake was at noon today. She has had prior C- sections as well as hysterectomy. She has not had prior hernias that she is aware. Related Data Home Medications Medication Instructions Recorded Confirmed FLUNISOLIDE 250MCG INHALER- 1 spray INH Q DAY #0 08/04/07 05/14/18 (Aerobid) MULTIVITAMIN (Multivitamin 1 cap PO EVERY DAY #0 08/04/07 05/14/18 -) CHOLECALCIFEROL (VITAMIN D3) 1,000 units PO QDAY #0 03/05/13 05/14/18 (VITAMIN D3) Fish Oil (FISH OIL~) 1,200 mg PO QDAY #0 03/05/13 05/14/18 [VITAMIN B 12] 1 cc IM [id number] #0 03/05/13 05/14/18 cyclosporine 0.05 % eye drops in a 1 drp [facility] QA #0 03/05/13 05/14/18 dropperette (Restasis) ibuprofen 200 mg tablet (Advil) 200 mg PO QDAYP PRN #0 03/05/13 05/14/18 metoprolol tartrate 25 mg tablet 12.5 mg PO QDAYP #0 03/05/13 05/14/18 calcium carbonate 600 mg calcium 600 mg PO BID tab 04/12/18 05/14/18 (1,500 mg) tablet famotidine 10 mg tablet (Pepcid AC) 10 mg PO PRN PRN 04/12/18 05/14/18 ferrous gluconate 324 mg (36 mg 324 mg PO DAILY tab 04/12/18 05/14/18 iron) tablet levothyroxine 50 mcg tablet See Rx Instructions .ROUTE .COMPLEX 04/12/18 05/14/18 (Levoxyl) nystatin 100,000 unit/gram topical 1 applictn TOP BID PRN 04/12/18 05/14/18 cream fexofenadine 180 mg tablet 180 mg PO DAILY 05/14/18 05/14/18 (Corina Allergy) levothyroxine 75 mcg capsule See Rx Instructions .ROUTE .COMPLEX 05/14/18 05/14/18 methylcellulose (laxative) 500 mg 500 mg PO DAILY 05/14/18 05/14/18 tablet (Citrucel) psyllium husk 0.4 gram capsule 0.4 g PO DAILY 05/14/18 05/14/18 (Metamucil) apixaban 2.5 mg tablet (Eliquis) 2.5 mg PO BID 05/10/21 05/10/21 Previous Rx's Medication Instructions Recorded oxycodone 5 mg tablet 5 mg PO QID PRN #14 tab 05/10/21 Allergies Allergy/AdvReac Type Severity Reaction Status Date / Time ciprofloxacin [From CIPRO] Allergy Mild itching Verified 05/10/21 17:04 atorvastatin [From Lipitor] Allergy muscles Verified 05/10/21 17:04 stop working Sulfa (Sulfonamide AdvReac Severe n\v Verified 05/10/21 17:04 Antibiotics) [SULFA (SULFONAMIDE ANTIBIOTICS)] adhesive [ADHESIVE] AdvReac Mild some Verified 05/10/21 17:04 tapes, redness and itching hydroxyzine [From Vistaril] AdvReac bad Verified 05/10/21 17:04 muscle spasms levothyroxine AdvReac colitis Verified 05/10/21 17:04 and diarrhea Review of Systems Review of Systems ROS Unobtainable: All systems reviewed & are unremarkable except as noted in HPI and below Patient History Medical History (Updated 05/10/21 @ 21:36 by Marina Barron DO) Essential hypertension with goal blood pressure less than 130/85 History of endometriosis History of left breast cancer Hypothyroidism Surgical History H/O hysterectomy for benign disease History of 3 sections History of appendectomy History of modified radical mastectomy History of total bilateral knee replacement Family History Father Heart disease Hypertension Stroke Social History marital status: household members: spouse Smoking Status: Never smoker alcohol intake: current Smoking Status: Never smoker Substance Use Type: does not use Exam Narrative Exam Narrative: GENERAL: Alert and oriented x three, female in mild distress. HEENT: Head normocephalic, atraumatic, EOMI, pupils reactive, face symmetric, moist mucous membranes NECK: Supple, full range of motion CARDIOVASCULAR: Regular rate and rhythm without murmurs, rubs or gallops. RESPIRATORY: Breath sounds equal bilaterally, no wheezes rales or rhonchi. ABDOMEN: Soft, nontender. Normoactive bowel sounds all 4 quadrants. No guarding or rebound, rigidity, no mass. Patient has a left palpable area of swelling in the groin but which is approximately 3 cm in size and more midline. Feels quite tight. She is tender but not exquisitely so. I am not able to easily reduce it. No warmth, erythema scaling or other skin changes noted. : No CVA tenderness EXTREMITIES: Normal range of motion, no clubbing or edema. Neurovascularly intact NEUROLOGICAL: Cranial nerves II through XII grossly intact. Moving all extremities SKIN: Warm, dry, no petechiae, no rashes or lesions. Initial Vital Signs Initial Vital Signs: Vital Signs Temperature 98.1 F 05/10/21 17:04 Pulse Rate 68 05/10/21 17:04 Respiratory Rate 18 05/10/21 17:04 Blood Pressure 131/85 05/10/21 17:04 Pulse Oximetry 97 05/10/21 17:04 Course Orders Ordered: ED Orders 05/10/21 20:36 CT abdomen pelvis w con Stat 05/10/21 20:41 Urine Microscopic Stat Discontinued Medications Sodium Chloride (Normal Saline 0.9%) 1,000 mls @ 125 mls/hr IV CONT OLIVER Last Infusion: 05/10/21 22:40 Dose: 0 mls/hr Documented by: Admin: 05/10/21 21:27 Dose: 125 mls/hr Documented by: FLACA Ondansetron HCl (Ondansetron 4 Mg/2 Ml Inj) 4 mg IV NOW ONE Stop: 05/10/21 18:28 Last Admin: 05/10/21 18:32 Dose: 4 mg Documented by: RUSLAN Oxycodone/Acetaminophen (Oxycodone/Apap 5/325 Prepack) 1 bottle MISC SEEINSTR ONE Stop: 05/10/21 21:59 Last Admin: 05/10/21 22:15 Dose: 1 bottle Documented by: FLACA Consultations Consultation #1: Sera, Vital Signs Vital signs: Vital Signs - 8 hr 05/10/21 22:32 Pulse Rate 61 Respiratory Rate 16 Blood Pressure 134/71 Pulse Oximetry 100 MDM - Abdominal Pain Lab Data Result diagrams: 05/10/21 17:32 05/10/21 17:32 Labs: Lab Results 05/10/21 05/10/21 05/10/21 Range/Units 17:32 17:32 17:36 WBC 5.5 (4.5-11.0) X10^3/uL RBC 3.73 L (4.0-5.2) X10^6/uL Hgb 13.3 (12.0-16.0) g/dL Hct 37.1 (36-46) % MCV 99.4 (80-100) fL MCH 35.7 H (26-34) PG MCHC 35.9 (30-36) % RDW 13.1 (11.6-14.8) % Plt Count 260 (150-400) X10^3/uL Neut % (Auto) 59.1 (50-75) % Lymph % (Auto) 24.8 L (25-40) % Prentiss % (Auto) 13.2 (3-14) % Eos % (Auto) 2.1 (2-4) % Baso % (Auto) 0.8 (0-2) % Neut # (Auto) 3300 (8342-1601) /uL Lymph # (Auto) 1400 (7256-7602) /uL Prentiss # (Auto) 700 (0-900) /uL Eos # (Auto) 100 (0-450) /uL Baso # (Auto) 0 (0-100) /uL Sodium 134 L (137-145) mmol/L Potassium 4.2 (3.4-5.1) mmol/L Chloride 102 (98-107) mmol/L Carbon Dioxide 25 (22-32) mmol/L BUN 19 H (7-17) mg/dL Creatinine 0.61 (0.52-1.04) mg/dL Estimated GFR > 60.0 (>60) mL/min BUN/Creatinine Ratio 31.1 H (6-22) Glucose 84 (80-110) mg/dL Calcium 9.8 (8.4-10.2) mg/dL Total Bilirubin 0.5 (0.2-1.3) mg/dL AST 38 H (14-36) IU/L ALT 29 (<35) IU/L Alkaline Phosphatase 104 (38-126) U/L Total Protein 8.5 H (6.3-8.2) g/dL Albumin 4.6 (3.5-5.0) g/dL Globulin 3.9 (1.7-4.1) g/dL Albumin/Globulin Ratio 1.2 (1.0-2.8) Lipase 68 (23-300) U/L Urine RBC (0-5/HPF) Urine WBC (0-5/HPF) Urine Bacteria (None) Ur Culture Indicated? SARS-CoV-2 (PCR) Negative (Negative) 05/10/21 Range/Units 20:41 WBC (4.5-11.0) X10^3/uL RBC (4.0-5.2) X10^6/uL Hgb (12.0-16.0) g/dL Hct (36-46) % MCV (80-100) fL MCH (26-34) PG MCHC (30-36) % RDW (11.6-14.8) % Plt Count (150-400) X10^3/uL Neut % (Auto) (50-75) % Lymph % (Auto) (25-40) % Prentiss % (Auto) (3-14) % Eos % (Auto) (2-4) % Baso % (Auto) (0-2) % Neut # (Auto) (9977-6201) /uL Lymph # (Auto) (8348-9762) /uL Prentiss # (Auto) (0-900) /uL Eos # (Auto) (0-450) /uL Baso # (Auto) (0-100) /uL Sodium (137-145) mmol/L Potassium (3.4-5.1) mmol/L Chloride (98-107) mmol/L Carbon Dioxide (22-32) mmol/L BUN (7-17) mg/dL Creatinine (0.52-1.04) mg/dL Estimated GFR (>60) mL/min BUN/Creatinine Ratio (6-22) Glucose (80-110) mg/dL Calcium (8.4-10.2) mg/dL Total Bilirubin (0.2-1.3) mg/dL AST (14-36) IU/L ALT (<35) IU/L Alkaline Phosphatase (38-126) U/L Total Protein (6.3-8.2) g/dL Albumin (3.5-5.0) g/dL Globulin (1.7-4.1) g/dL Albumin/Globulin Ratio (1.0-2.8) Lipase (23-300) U/L Urine RBC 0-1/hpf (0-5/HPF) Urine WBC 0-1/hpf (0-5/HPF) Urine Bacteria Occasional (0-1) (None) Ur Culture Indicated? Cult not indicated SARS-CoV-2 (PCR) (Negative) Point of care testing: Point of Care Testing Glucose POC 85 Urine Dip Bedside Urine Glucose Negative Bedside Urine Bilirubin - Negative Bedside Urine Ketone +/- 5 Urine Specific [place] 1.025 Bedside Urine Occult Blood +/- Bedside Urine pH 6.0 Bedside Urine Protein - Negative Bedside Urine Urobilinogen - Negative Bedside Urine Nitrite - Negative Bedside Urine Leukocytes - Negative Esterase Imaging Data CT scan - abdomen/pelvis: Radiologist's Impression: Launch?[address] [address] [address] Scan Report Signed Patient: Paula Ji MR#: [id number] : 1935 Acct:[id number] Age/Sex: 86 / F Date of Service: 05/10/21 Loc: ED Accession Number: [id number] ?? Procedure: CT abdomen pelvis w con Ordering Provider: Marina Barron D.O. PROCEDURE:? CT ABDOMEN PELVIS W CON ? INDICATIONS:? left hernia, ? SBO ? TECHNIQUE:? After the administration of IV contrast, axial sections were acquired from the lung bases to the pubic symphysis.? Coronal and sagittal reformats were performed.? For radiation dose reduction, the following was used:? automated exposure control, adjustment of mA and/or kV according to patient size. ? COMPARISON:? None. ? FINDINGS:? Image quality:? Excellent.? ? Lung bases:? Small calcified granuloma at the right lung base.? Moderate hiatal hernia. ? ? Heart:? No significant findings. Left breast prosthesis. ? ABDOMEN: Liver:? No focal lesion. Gallbladder:? No calcified gallstones. Biliary ducts:? Unremarkable.? ? Pancreas:? Unremarkable.? ? Spleen:? No splenomegaly. Adrenal Glands:? No adrenal nodule. Kidneys and Ureters:? No hydronephrosis.? Small simple appearing cyst at the superior pole of the left kidney.? ? ? Stomach and Bowel:? Stomach, small bowel loops, and colon are unremarkable.? No small bowel obstruction. Peritoneum:? No abnormal intraperitoneal fluid.? No free air.? ? Ventral Wall: ? Small umbilical hernia containing a small portion of bowel. Abdominal Nodes:? No retroperitoneal or mesenteric adenopathy by size criteria.? Vessels:? Ectasia of the proximal aorta.? Mild calcified atherosclerotic plaque4 ? PELVIS: Pelvic Organs:? Uterus is absent.? ? Bladder:? Unremarkable.? ? Pelvic Nodes:? Enlarged left groin node with a short axis diameter of 1.9 cm, (65).? Left pelvic sidewall node measuring 1.5 cm, (58). Miscellaneous: No definite inguinal hernias are seen. ? ? ? Bones:? T12 intraosseous hemangioma.? No compression fracture. ? ? IMPRESSION:? 1. A small umbilical hernia containing a small portion of bowel.? No bowel obstruction.? No free fluid.? No definite inguinal hernia. ? 2. Enlarged left groin and left pelvic sidewall lymph nodes.? Findings suspicious for malignancy.? -Recommend ultrasound-guided biopsy of the left groin node. ? 3. Moderate hiatal hernia. ? Comment: Findings were discussed with Marina Barron at the time of dictation. ? ? ? Dictated by: Rolo West M.D. on 05/10/2021 at 21:08 ? ? Approved by: Rolo West M.D. on 05/10/2021 at 21:19?? MDM Narrative Medical decision making narrative: This is an 86-year-old female with palpable mass dissected be hernia on exam. Patient was sent from primary care after having ultrasound which was suspicious for her. Labs were obtained, reviewed. CT abdomen pelvis was ordered and shows enlarged node at that site with some oral enlarged nodes pelvis. This discussed with patient this is concerning and she needs ultrasound-guided biopsy. Asked to contact primary care in the morning help order this as an outpatient. She is on Eliquis daily social have to hold this likely prior to her procedure would discuss you probably take it tonight. We did discuss that this is concerning for malignancy but she needs a biopsy to further evaluate fully. She was given referral to hematology/oncology. Short course of pain medication. All questions answered. Discharge Plan Departure Patient Disposition: Home Clinical Impression: Enlarged lymph nodes, Hernia, umbilical Activity Restrictions/Additional Instructions: Your CT today shows a small umbilical hernia which is at the belly button but not in the groin. They mass that we are feeling appears to be an enlarged lymph node and there are some enlarged nodes in your pelvis as well. It is recommended that you have an ultrasound-guided biopsy of this location. Call Dr. Ferreira in the morning to order the biopsy. You will also wish to followup with hematology/oncology. You will need to hold your Eliquis prior to the biopsy. But you can go ahead and take your dose tonight. Take pain medication as prescribed. This medication can make you sleepy do not drive, perform hazardous activities or make any major decisions while taking it. This medication will make you constipated please take a stool softener once to twice daily until stools are soft and regular. Prescription sent to [facility] in [place]. Please return for rapidly worsening pain, abdominal pain, fevers, rapidly growing lymph node or mass at the site, skin changes or other new or concerning symptoms. Prescriptions: New oxycodone 5 mg tablet 5 mg PO QID PRN (Reason: pain) Qty: 14 RF: 0 No Action FLUNISOLIDE 250MCG INHALER- (Aerobid) 1 spray INH Q DAY Qty: 0 RF: 0 MULTIVITAMIN (Multivitamin -) 1 cap PO EVERY DAY Qty: 0 RF: 0 metoprolol tartrate 25 MG tablet 12.5 mg PO QDAYP Qty: 0 RF: 0 cyclosporine [Restasis] 1 EACH dropperette 1 drp OPHTH QAM Qty: 0 RF: 0 CHOLECALCIFEROL (VITAMIN D3) (VITAMIN D3) 1,000 units PO QDAY Qty: 0 RF: 0 Fish Oil (FISH OIL~) 1,200 mg PO QDAY Qty: 0 RF: 0 ibuprofen [Advil] 200 MG tablet 200 mg PO QDAYP PRN (Reason: Pain, Moderate) Qty: 0 RF: 0 [VITAMIN B 12] 1 cc IM [id number] Qty: 0 RF: 0 levothyroxine [Levoxyl] 50 mcg tablet See Rx Instructions .ROUTE .COMPLEX RF: 0 ferrous gluconate 324 mg (36 mg iron) tablet 324 mg PO DAILY RF: 0 calcium carbonate 600 mg calcium (1,500 mg) tablet 600 mg PO BID RF: 0 famotidine [Pepcid AC] 10 mg tablet 10 mg PO PRN PRN (Reason: Acid Reflux) RF: 0 nystatin 100,000 unit/gram cream 1 applictn TOP BID PRN (Reason: Rash) RF: 0 Eliquis 2.5 mg tablet 2.5 mg PO BID RF: 0 fexofenadine [Corina Allergy] 180 mg Tablet 180 mg PO DAILY RF: 0 methylcellulose (laxative) [Citrucel] 500 mg Tablet 500 mg PO DAILY RF: 0 levothyroxine 75 mcg Capsule See Rx Instructions .ROUTE .COMPLEX RF: 0 psyllium husk [Metamucil] 0.4 gram Capsule 0.4 g PO DAILY RF: 0 Referrals: Duncan Henriquez MD [Primary Care Provider] - Jacquelyn Frey MD [Physician] -
--- NOTE | 2021-05-10 20:36 | DI.CT.S_ITS ---
PROCEDURE: CT ABDOMEN PELVIS W CON INDICATIONS: left hernia, ? SBO TECHNIQUE: After the administration of IV contrast, axial sections were acquired from the lung bases to the pubic symphysis. Coronal and sagittal reformats were performed. For radiation dose reduction, the following was used: automated exposure control, adjustment of mA and/or kV according to patient size. COMPARISON: None. FINDINGS: Image quality: Excellent. Lung bases: Small calcified granuloma at the right lung base. Moderate hiatal hernia. Heart: No significant findings. Left breast prosthesis. ABDOMEN: Liver: No focal lesion. Gallbladder: No calcified gallstones. Biliary ducts: Unremarkable. Pancreas: Unremarkable. Spleen: No splenomegaly. Adrenal Glands: No adrenal nodule. Kidneys and Ureters: No hydronephrosis. Small simple appearing cyst at the superior pole of the left kidney. Stomach and Bowel: Stomach, small bowel loops, and colon are unremarkable. No small bowel obstruction. Peritoneum: No abnormal intraperitoneal fluid. No free air. Ventral Wall: Small umbilical hernia containing a small portion of bowel. Abdominal Nodes: No retroperitoneal or mesenteric adenopathy by size criteria. Vessels: Ectasia of the proximal aorta. Mild calcified atherosclerotic plaque4 PELVIS: Pelvic Organs: Uterus is absent. Bladder: Unremarkable. Pelvic Nodes: Enlarged left groin node with a short axis diameter of 1.9 cm, (2/65). Left pelvic sidewall node measuring 1.5 cm, (2/58). Miscellaneous: No definite inguinal hernias are seen. Bones: T12 intraosseous hemangioma. No compression fracture. IMPRESSION: 1. A small umbilical hernia containing a small portion of bowel. No bowel obstruction. No free fluid. No definite inguinal hernia. 2. Enlarged left groin and left pelvic sidewall lymph nodes. Findings suspicious for malignancy. -Recommend ultrasound-guided biopsy of the left groin node. 3. Moderate hiatal hernia. Comment: Findings were discussed with Marina Barron at the time of dictation. Dictated by: Rolo Wset M.D. on 05/10/2021 at 21:08 Approved by: Rolo West M.D. on 05/10/2021 at 21:19
--- NOTE | 2021-05-10 20:38 | PC.NURSE ---
patient ambulated to bathroom with steady gait
[2021-05-10] MEDS: SODIUM CHLORIDE 0.9% 1,000 ML 125 ML IV (21:27)
[2021-05-10] MEDS: OXYCODONE/APAP 5/325 PREPACK 1 BOTTLE MISC (22:15)
[2021-05-10 22:32] VITALS: BP 134/71; PULSE 61; RESP 16; O2SAT 100
[2021-05-10 23:06] LABS: Bacteria Urine Occasional (0-1); RBC Urine 0-1/HPF (0-5/HPF); WBC Urine 0-1/HPF (0-5/HPF)
[2021-05-10 23:07] LABS: Culture Indicated Urine Cult Not Indicated
== END 2021-05-10 22:42 | disposition home or self-care (01) ==
PROVIDERS: Emergency Medicine; Emergency Provider Emergency Medicine; PCP Internal Medicine
DX: R59.9 Enlarged lymph nodes, unspecified (principal); K42.9 Umbilical hernia without obstruction or gangrene; Z20.822 Contact with and (suspected) exposure to COVID-19
CPT/HCPCS: 36415; 74177; 80053; 81003; 81015; 82962; 83690; 85025; 87635; 96361; 96374; 99284; C9803; J2405; Q9967

== ENCOUNTER → 2021-05-31 07:41 | Outpatient (CLI) | payer MEDICARE, SELFPAY ==
--- NOTE | 2021-05-31 | PATH_ITS ---
[facility] Accession Number: [id number] . 01 Material submitted: . lymph node - LEFT GROIN LYMPHNODE . 01 Diagnosis: LYMPH NODE, LEFT GROIN, NEEDLE BIOPSY: --- LYMPHOID TISSUE WITH ATYPICAL ARCHITECTURE --- LARGE CD30+ CELLS PRESENT SINGLY IN INTERFOLLICULAR DISTRIBUTION -- SEE COMMENT [facility] 06/08/2021 1618 Local . 01 Comment: This case was discussed with Dr Seymour in Dr. Ferreira's absence (telephone conversation Jun 08, 2021 at 3:30pm). To allow full characterization of this process, with greater inspection of william architecture, distribution and extent of abnormalities, and to have adequate tissue for all eventual immunohistochemical and/or FISH, studies, an excisional biopsy of the entire node has been requested. Please submit a tandem sample for flow cytometric analysis. . 01 Electronically signed: . Phyllis Barth MD, Pathologist NPI- [id number] . 01 Gross description: . LEFT GROIN LYMPHNODE: Received in formalin are multiple fragment(s) of martini, soft tissue measuring 0.2 x 0.1 x 0.1 cm to 1.1 x 0.1 x 0.1 cm submitted entirely in 1 cassette(s) /MARIE 05/31/2021 2215 Local . 01 Microscopic: . H/E levels demonstrate fragments of lymphoid tissue compatible with a needle biopsy. Large atypical cells are seen, predominately in interfollicular distribution. These are present singly; no sheets or clusters are noted. There is no evidence of Hallmark, Thien-Bronwyn or Hodgkin-like cytologic features. There is no evidence of sclerotic banding, necrosis, acute lymphadenopathy, definitive granulomata or carcinoma. . In order to more fully characterize this process, immunohistochemical stains were indicated and were performed. The controls reacted appropriately. . Findings: CD43: B-cell areas negative, T-cell areas positive. (Membranous/Strong) CD3: Many small T-cells present. Large cells negative. (Membranous/Strong) CD5: Many small T-cells present; Large cells negative; pattern mirrors CD3. (Membranous/Strong) CD10: Negative CD20: Small follicles (primary) present, especially at periphery of biopsy. Large cells negative. (Membranous/Strong) PAX5: Idem CD20 (Nuclear/Strong) CD21: Residual DETENTION present in and around CD20 positive foci (Cytoplasmic/Strong) CD30: Large cells positive (Membranous/Strong) CyclinD1: Negative BCL-2: T-cells appear positive; B-cell areas appear negative. Large cells inconclusive (Membranous/Strong) BCL-6: GC and expanded areas positive. Large cells inconclusive (Nuclear/Strong) CD15: Large cells negative ALK-1: Negative CARISA: Negative CD56: Negative GREGOR-FREDRICK: Negative Ki-67: Approximately 60-70% positive in large cells; approximately 40% positive in entire specimen (Nuclear/Strong) . Interpretation: Atypical CD30+ non-CD20+ nonPAX5+ nonALK1+ large cells present . Technical Note: The immunohistochemical stains reported were performed at [employer] [facility] [place] ([address] [place], [place] [address]e [address], [facility] [address]). They were developed and their performance characteristics determined by [employer]. They have not been cleared or approved by the U.S. Food and Drug Administration, although such approval is not required for analyte-specific reagents of this type. . 01 Pathologist provided ICD-10: R59.1 . 01 CPT . 731309, L89590, W95879, 191363, R38402 Performed at: 01 [facility] [address] [place] [address] [address], [place], [place] [id number] MD Vamshi Whitney MD Phone: [phone]
--- NOTE | 2021-05-31 | DI.US.S_ITS ---
PROCEDURE: US BIOPSY ABD OR RETROPERIT Ultrasound-guided right inguinal lymph node biopsy. INDICATIONS: ENLARGED LYMPH NODE BIOPSY TECHNIQUE: The indications, alternatives, benefits, risks, and complications of the procedure were explained to the patient. Written informed consent was obtained and placed in the chart. Continuous EKG and hemodynamic monitoring was started by trained personnel. Real-time sonography was utilized to choose the site for percutaneous left inguinal lymph node biopsy. The skin was prepped and draped in the usual sterile fashion. 1% lidocaine was infiltrated down to the site of interest. A coaxial needle was then advanced into the site of interest under direct sonographic visualization. A biopsy apparatus was then utilized, and core biopsies were obtained. The needle was then withdrawn; a bandage was applied to the biopsy site. COMPARISON: None. FINDINGS: Biopsy site(s): Left inguinal lymph node Needle: [employer] 18 gauge biopsy needle set. Number of passes: 4 Medications: 4 cubic centimeters of 1% lidocaine for local anaesthesia. Complications: None. IMPRESSION: Successful ultrasound-guided left inguinal lymph node biopsy, with pathology results pending. Dictated by: Bethany Fry MD, PhD on 05/31/2021 at 10:40 Approved by: Bethany Fry MD, PhD on 05/31/2021 at 10:42
== END ==
PROVIDERS: PCP Internal Medicine; Referring Provider Internal Medicine; Visit Provider Internal Medicine
DX: R59.0 Localized enlarged lymph nodes (principal)
CPT/HCPCS: 49180; 76942

== ENCOUNTER 2021-06-18 18:00 | Observation (INO) | payer MEDICARE, SELFPAY ==
[2021-06-18] VITALS (11 sets, daily range): BP systolic 131–160; BP diastolic 63–77; PULSE 62–75; RESP 16–29; TEMP 36.6; O2SAT 95–99; BMI 25.1
--- NOTE | 2021-06-18 18:07 | DI.RAD.S_ITS ---
PROCEDURE: XR CHEST 1V INDICATIONS: Syncope TECHNIQUE: One view of the chest was acquired. COMPARISON: [facility], CR, XR CHEST 2V, 06/26/2018, 10:12. FINDINGS: Surgical changes and devices: None. Lungs and pleura: Lungs are clear. No pleural effusions or pneumothorax. Mediastinum: Mediastinal contours appear normal. Heart size is at the upper limits of normal. Bones and chest wall: No suspicious bony lesions. Overlying soft tissues appear unremarkable. IMPRESSION: 1. No acute cardiopulmonary disease. Dictated by: Vamshi Castellon M.D. on 06/18/2021 at 18:58 Approved by: Vamshi Castellon M.D. on 06/18/2021 at 18:58
--- NOTE | 2021-06-18 18:16 | ED_ITS ---
HPI - Syncope General Chief Complaint: Syncope Stated Complaint: syncope Time Seen by Provider: 06/18/21 18:06 History of Present Illness HPI narrative: 86-year-old female nonsmoker with history of AFib on Eliquis presents by EMS for an unprovoked syncopal episode just prior to arrival. She was in her normal state of health throughout the course of the day and denies any change in medications or diet. She denies any chest pain or shortness of breath. She has had no nausea, vomiting or diarrhea. She was watching the football game while seated and without any prodromal symptoms had a witnessed syncopal episode that lasted upwards of 15-30 seconds. She had not been changing position, straining on the toilet or engaged in any other classic symptoms. Related Data Home Medications Medication Instructions Recorded Confirmed FLUNISOLIDE 250MCG INHALER- 1 spray INH Q DAY #0 08/04/07 06/18/21 (Aerobid) MULTIVITAMIN (Multivitamin 1 cap PO EVERY DAY #0 08/04/07 06/18/21 -) CHOLECALCIFEROL (VITAMIN D3) 2,000 units PO QDAY #0 03/05/13 06/18/21 (VITAMIN D3) Fish Oil (FISH OIL~) 1,200 mg PO QDAY #0 03/05/13 06/18/21 cyclosporine 0.05 % eye drops in a 1 drp OPHTH QAM #0 03/05/13 06/18/21 dropperette (Restasis) ibuprofen 200 mg tablet (Advil) 200 mg PO QDAYP PRN #0 03/05/13 06/18/21 metoprolol tartrate 25 mg tablet 12.5 mg PO QDAYP #0 03/05/13 06/18/21 calcium carbonate 600 mg calcium 600 mg PO BID tab 04/12/18 06/18/21 (1,500 mg) tablet famotidine 10 mg tablet (Pepcid AC) 10 mg PO PRN PRN 04/12/18 06/18/21 ferrous gluconate 324 mg (36 mg 324 mg PO DAILY tab 04/12/18 06/18/21 iron) tablet nystatin 100,000 unit/gram topical 1 applictn TOP BID PRN 04/12/18 06/18/21 cream fexofenadine 180 mg tablet 180 mg PO DAILY 05/14/18 06/18/21 ([facility]ina Allergy) methylcellulose (laxative) 500 mg 500 mg PO DAILY 05/14/18 06/18/21 tablet (Citrucel) psyllium husk 0.4 gram capsule 0.4 g PO DAILY PRN 05/14/18 06/18/21 (Metamucil) apixaban 2.5 mg tablet (Eliquis) 2.5 mg PO BID 05/10/21 06/18/21 cyanocobalamin (vitamin B-12) 1,000 mcg IM Q2W 06/18/21 06/18/21 1,000 mcg/mL injection solution docusate sodium 100 mg capsule 100 mg PO DAILY 06/18/21 06/18/21 (Colace) levothyroxine 50 mcg tablet 50 mcg PO QAM 06/18/21 06/18/21 (Levoxyl) levothyroxine 75 mcg tablet 75 mcg PO QAM 06/18/21 06/18/21 (Levoxyl) lorazepam 0.5 mg tablet 0.5 mg PO DAILY 06/18/21 06/18/21 Allergies Allergy/AdvReac Type Severity Reaction Status Date / Time ciprofloxacin [From CIPRO] Allergy Mild itching Verified 05/10/21 17:04 atorvastatin [From Lipitor] Allergy muscles Verified 05/10/21 17:04 stop working Sulfa (Sulfonamide AdvReac Severe n\v Verified 05/10/21 17:04 Antibiotics) [SULFA (SULFONAMIDE ANTIBIOTICS)] adhesive [ADHESIVE] AdvReac Mild some Verified 05/10/21 17:04 tapes, redness and itching hydroxyzine [From Vistaril] AdvReac bad Verified 05/10/21 17:04 muscle spasms levothyroxine AdvReac colitis Verified 05/10/21 17:04 and diarrhea Review of Systems Review of Systems Narrative: GENERAL: Denies chills, fatigue, malaise, fever, sweats. HEENT: Denies sinus pain, ear pain, sore throat, difficulty swallowing, d izziness. RESPIRATORY: Denies dyspnea, cough, wheezing, hemoptysis, sputum. CARDIOVASCULAR: See HPI GASTROINTESTINAL: Denies nausea, vomiting, abdominal pain, diarrhea, constipation, melena. : Denies dysuria, frequency, incontinence, hematuria, urinary retention. MUSCULOSKELETAL: denies weakness, joint pain, or bony pain SKIN: Denies rash, skin lesions, or other NEUROLOGIC: Denies weakness, headache, numbness, change in speech, confusion, seizures, incoordination. PSYCHIATRIC: No concerning psychosocial issues. 12 point review of systems is negative except for those stated above Patient History Medical History (Updated 06/19/21 @ 03:17 by Colt Whitehead DO) Essential hypertension with goal blood pressure less than 130/85 History of endometriosis History of left breast cancer History of trigger finger Hypothyroidism Inguinal lymphadenopathy Left bundle branch block Lymphedema of arm Paroxysmal atrial fibrillation Surgical History (Updated 06/18/21 @ 23:15 by Dae Chapman MD) H/O hysterectomy for benign disease History of 3 sections History of appendectomy History of carpal tunnel release History of modified radical mastectomy History of tonsillectomy History of total bilateral knee replacement Family History (Updated 06/18/21 @ 23:16 by Dae Chapman MD) Father Heart disease Hypertension Stroke Mother Appendicitis Social History marital status: household members: spouse Smoking Status: Never smoker alcohol intake: current Smoking Status: Never smoker Substance Use Type: does not use Exam Narrative Exam Narrative: GENERAL: [86] year old patient appears stated age. Well-dev eloped patient, in mild distress. HEAD: Atraumatic. Normocephalic. EYES: Pupils equal round and reactive. Extraocular motions intact. No scleral icterus. No injection or drainage. ENT: Nose without bleeding, purulent drainage. Throat without erythema, tonsillar hypertrophy or exudate. Airway patent. NECK: Trachea midline. Non tender CARDIOVASCULAR: Regular rate and rhythm without murmurs, gallops, or rubs. RESPIRATORY: Clear to auscultation. Breath sounds equal bilaterally. No wheezes, rales, or rhonchi. GASTROINTESTINAL: Abdomen soft, non-tender, nondistended. EXTREMITIES: No edema or joint tenderness. BACK: Nontender without deformity or crepitance. No flank tenderness. NEURO: AOx3. SKIN: No rash or erythema of visible areas Initial Vital Signs Initial Vital Signs: Vital Signs Pulse Rate 68 06/18/21 18:07 Respiratory Rate 20 06/18/21 18:07 Blood Pressure 141/67 H 06/18/21 18:07 Pulse Oximetry 98 06/18/21 18:07 Course Orders Ordered: ED Orders 06/18/21 18:05 Complete Blood Count AUTO DIFF Stat Comprehensive Metabolic Panel Stat D Dimer Stat Magnesium Stat NT-proBNP (BNP-Adult 18+) Stat Prothrombin Time INR Stat Troponin & CK Cardiac Panel Stat 06/18/21 18:06 EKG-12 Lead Stat 06/18/21 18:07 XR chest 1V Stat 06/18/21 18:45 Urine Culture Stat Urine Microscopic Stat 06/18/21 19:25 EKG-12 Lead Stat 06/18/21 20:35 COVID19 - ADMIT ([facility] swab/PCR) Stat Acetaminophen (Acetaminophen 325 Mg Tablet) 650 mg PO Q6HR PRN PRN Reason: Fever/Mild Pain (1-3) Apixaban (Apixaban 5 Mg Tablet) 2.5 mg PO BID [facility] Last Admin: 06/18/21 22:25 Dose: 2.5 mg Documented by: ALIZE Fish Oil (Fish Oil 1,000 Mg Capsule) 1,000 mg PO DAILY [facility] Sodium Chloride (Normal Saline 0.9%) 1,000 mls @ 150 mls/hr IV CONT [facility] Last Infusion: 06/18/21 21:15 Dose: 150 mls/hr Documented by: Admin: 06/18/21 18:49 Dose: 150 mls/hr Documented by: NIKOLAI Levothyroxine Sodium (Levothyroxine 50 Mcg Tablet) 50 mcg PO QACBREAK [facility] Levothyroxine Sodium (Levothyroxine 75 Mcg Tablet) 75 mcg PO QACBREAK [facility] Metoprolol Succinate (Metoprolol Er 25 Mg Tablet) 12.5 mg PO BID [facility] Last Admin: 06/18/21 22:25 Dose: 12.5 mg Documented by: ALIZE Naloxone HCl (Naloxone 0.4 Mg/Ml Vial) 0.2 mg IV Q2MIN PRN PRN Reason: Opiate Reversal Non-Formulary Medication (Cyclosporine [Restasis]) 1 drop OPHTH QAM [facility] Ondansetron HCl (Ondansetron 4 Mg Odt) 4 mg PO Q8HR PRN PRN Reason: Nausea And Vomiting Oxycodone HCl (Oxycodone Ir 5 Mg Tablet) 5 mg PO QID PRN PRN Reason: pain Psyllium Hydrophilic Mucilloid (Psyllium Husk 1 Packet) 1 packet PO DAILY [facility] Discontinued Medications Acetaminophen (Acetaminophen 325 Mg Tablet) 650 mg PO NOW ONE Stop: 06/19/21 00:24 Last Admin: 06/19/21 01:02 Dose: 650 mg Documented by: ROSARIO Metoprolol Tartrate (Metoprolol Ir 25 Mg Tablet) 12.5 mg PO DAILY [facility] Consultations Consultation #1: Discussed with Cardiology at [facility], her coat check attendant is [place]. After discussing the case he agrees that given what appears to be unprovoked syncope patient will require hospitalization for cardiac monitoring to rule out arrhythmia. He reviewed their records and notes prior evidence of both RBBB and LBBB on monitors, no need for transfer at this time, but certainly needs at least overnight monitoring with echo. Consultation #2: hospitalist happy to accept Vital Signs Vital signs: Vital Signs - 8 hr 06/18/21 19:30 06/18/21 20:02 06/18/21 20:04 Pulse Rate 62 65 63 Respiratory Rate 21 Blood Pressure 131/63 155/71 H Pulse Oximetry 99 95 97 06/18/21 20:30 Pulse Rate 75 Respiratory Rate 23 Blood Pressure 160/77 H Pulse Oximetry 96 MDM - Syncope Lab Data Result diagrams: 06/18/21 18:05 06/18/21 18:05 Labs: Lab Results 06/18/21 06/18/21 06/18/21 Range/Units 18:05 18:05 18:05 WBC 5.3 (4.5-11.0) X10^3/uL RBC 3.96 L (4.0-5.2) X10^6/uL Hgb 12.6 (12.0-16.0) g/dL Hct 37.2 (36-46) % MCV 93.9 (80-100) fL MCH 31.8 (26-34) PG MCHC 33.9 (30-36) % RDW 13.0 (11.6-14.8) % Plt Count 236 (150-400) X10^3/uL Neut % (Auto) 53.1 (50-75) % Lymph % (Auto) 31.5 (25-40) % [place] % (Auto) 13.0 (3-14) % Eos % (Auto) 1.9 L (2-4) % Baso % (Auto) 0.5 (0-2) % Neut # (Auto) 2800 (4084-5321) /uL Lymph # (Auto) 1700 (5293-5700) /uL [place] # (Auto) 700 (0-900) /uL Eos # (Auto) 100 (0-450) /uL Baso # (Auto) 0 (0-100) /uL PT 13.1 H (10.1-12.7) SECONDS INR 1.2 (0.9-1.3) D-Dimer < 200 (<230) ng/mL Sodium 135 L (137-145) mmol/L Potassium 4.3 (3.4-5.1) mmol/L Chloride 101 (98-107) mmol/L Carbon Dioxide 27 (22-32) mmol/L BUN 19 H (7-17) mg/dL Creatinine 0.69 (0.52-1.04) mg/dL Estimated GFR > 60.0 (>60) mL/min BUN/Creatinine Ratio 27.5 H (6-22) Glucose 147 H (80-110) mg/dL Hemoglobin A1c (4.0-6.0) % Calcium 9.6 (8.4-10.2) mg/dL Magnesium 2.0 (1.6-2.3) mg/dL Total Bilirubin 0.5 (0.2-1.3) mg/dL AST 37 H (14-36) IU/L ALT 30 (<35) IU/L Alkaline Phosphatase 82 (38-126) U/L Total Creatine Kinase 50 (30-135) U/L CK-MB (CK-2) TNP CK-MB (CK-2) Rel Index TNP Troponin I < 0.012 (0.01-0.034) ng/mL NT-Pro-B Natriuret Pep 338 (<450) pg/mL Total Protein 8.2 (6.3-8.2) g/dL Albumin 4.3 (3.5-5.0) g/dL Globulin 3.9 (1.7-4.1) g/dL Albumin/Globulin Ratio 1.1 (1.0-2.8) TSH (0.47-4.68) uIU/mL Urine RBC (0-5/HPF) Urine WBC (0-5/HPF) Ur Squamous Epith Cells (0-5/HPF) Amorphous Sediment Urine Bacteria (None) Hyaline Casts (None) Ur Culture Indicated? SARS-CoV-2 (PCR) (Negative) 06/18/21 06/18/21 06/18/21 Range/Units 18:05 18:15 18:45 WBC (4.5-11.0) X10^3/uL RBC (4.0-5.2) X10^6/uL Hgb (12.0-16.0) g/dL Hct (36-46) % MCV (80-100) fL MCH (26-34) PG MCHC (30-36) % RDW (11.6-14.8) % Plt Count (150-400) X10^3/uL Neut % (Auto) (50-75) % Lymph % (Auto) (25-40) % [place] % (Auto) (3-14) % Eos % (Auto) (2-4) % Baso % (Auto) (0-2) % Neut # (Auto) (8084-1435) /uL Lymph # (Auto) (7616-8520) /uL [place] # (Auto) (0-900) /uL Eos # (Auto) (0-450) /uL Baso # (Auto) (0-100) /uL PT (10.1-12.7) SECONDS INR (0.9-1.3) D-Dimer (<230) ng/mL Sodium (137-145) mmol/L Potassium (3.4-5.1) mmol/L Chloride (98-107) mmol/L Carbon Dioxide (22-32) mmol/L BUN (7-17) mg/dL Creatinine (0.52-1.04) mg/dL Estimated GFR (>60) mL/min BUN/Creatinine Ratio (6-22) Glucose (80-110) mg/dL Hemoglobin A1c 5.0 (4.0-6.0) % Calcium (8.4-10.2) mg/dL Magnesium (1.6-2.3) mg/dL Total Bilirubin (0.2-1.3) mg/dL AST (14-36) IU/L ALT (<35) IU/L Alkaline Phosphatase (38-126) U/L Total Creatine Kinase (30-135) U/L CK-MB (CK-2) CK-MB (CK-2) Rel Index Troponin I (0.01-0.034) ng/mL NT-Pro-B Natriuret Pep (<450) pg/mL Total Protein (6.3-8.2) g/dL Albumin (3.5-5.0) g/dL Globulin (1.7-4.1) g/dL Albumin/Globulin Ratio (1.0-2.8) TSH 1.20 (0.47-4.68) uIU/mL Urine RBC 0-1/hpf (0-5/HPF) Urine WBC 0-1/hpf (0-5/HPF) Ur Squamous Epith Cells 0-1 /hpf (0-5/HPF) Amorphous Sediment 1+ Urine Bacteria None seen (None) Hyaline Casts 0-1/lpf (None) Ur Culture Indicated? Culture not indicate SARS-CoV-2 (PCR) (Negative) 06/18/21 Range/Units 20:35 WBC (4.5-11.0) X10^3/uL RBC (4.0-5.2) X10^6/uL Hgb (12.0-16.0) g/dL Hct (36-46) % MCV (80-100) fL MCH (26-34) PG MCHC (30-36) % RDW (11.6-14.8) % Plt Count (150-400) X10^3/uL Neut % (Auto) (50-75) % Lymph % (Auto) (25-40) % [place] % (Auto) (3-14) % Eos % (Auto) (2-4) % Baso % (Auto) (0-2) % Neut # (Auto) (2408-8693) /uL Lymph # (Auto) (8979-7557) /uL [place] # (Auto) (0-900) /uL Eos # (Auto) (0-450) /uL Baso # (Auto) (0-100) /uL PT (10.1-12.7) SECONDS INR (0.9-1.3) D-Dimer (<230) ng/mL Sodium (137-145) mmol/L Potassium (3.4-5.1) mmol/L Chloride (98-107) mmol/L Carbon Dioxide (22-32) mmol/L BUN (7-17) mg/dL Creatinine (0.52-1.04) mg/dL Estimated GFR (>60) mL/min BUN/Creatinine Ratio (6-22) Glucose (80-110) mg/dL Hemoglobin A1c (4.0-6.0) % Calcium (8.4-10.2) mg/dL Magnesium (1.6-2.3) mg/dL Total Bilirubin (0.2-1.3) mg/dL AST (14-36) IU/L ALT (<35) IU/L Alkaline Phosphatase (38-126) U/L Total Creatine Kinase (30-135) U/L CK-MB (CK-2) CK-MB (CK-2) Rel Index Troponin I (0.01-0.034) ng/mL NT-Pro-B Natriuret Pep (<450) pg/mL Total Protein (6.3-8.2) g/dL Albumin (3.5-5.0) g/dL Globulin (1.7-4.1) g/dL Albumin/Globulin Ratio (1.0-2.8) TSH (0.47-4.68) uIU/mL Urine RBC (0-5/HPF) Urine WBC (0-5/HPF) Ur Squamous Epith Cells (0-5/HPF) Amorphous Sediment Urine Bacteria (None) Hyaline Casts (None) Ur Culture Indicated? SARS-CoV-2 (PCR) Negative (Negative) Urine Dip Bedside Urine Glucose Negative Bedside Urine Bilirubin - Negative Bedside Urine Ketone - Negative Urine Specific [place] 1.020 Bedside Urine Occult Blood + Bedside Urine pH 6.0 Bedside Urine Protein +/- 15 Bedside Urine Urobilinogen - Negative Bedside Urine Nitrite - Negative Bedside Urine Leukocytes - Negative Esterase ECG Data Interpretation: 1. Sinus rhythm with PACs. LBBB appears new from our last on 12/15/14 ([facility] suggests there have been prior blocks on their tracings and monitors) 2. unchanged [facility] Narrative Medical decision making narrative: Patient with unprovoked syncope has a very reassuring physical exam and is asymptomatic for the duration of her visit. Labs are reassuring. There is no change in her EKG over the visit but EKG does note a new left bundle branch compared to prior tracing in 2015. She has no other cardiac equivalents such as pressure, dizziness, shortness of breath, fatigue or other. [facility] suggest prior episodes of both right and left bundle-branch monitors and after discussion of the case do not recommend transfer, only overnight with monitoring, serial enzymes, EKG and echo. Discharge Plan Departure Patient Disposition: Admitted as Observation Clinical Impression: Syncope and collapse Admit Date/Time: 06/18/21 20:38 Admit Provider: Dae Chapman
[2021-06-18 18:21] LABS: INR 1.2 (0.9-1.3); Prothrombin Time 13.1 SECONDS (10.1-12.7)
[2021-06-18 18:25] LABS: Alanine Aminotransferase 30 IU/L (<35); Albumin 4.3 g/dL (3.5-5.0); Albumin Globulin Ratio 1.1 (1.0-2.8); Alkaline Phosphatase 82 U/L (38-126); Aspartate Aminotransferase 37 IU/L (14-36); BUN Creatinine Ratio 27.5 (6-22); Bilirubin Total 0.5 mg/dL (0.2-1.3); Blood Urea Nitrogen 19 mg/dL (7-17); Calcium 9.6 mg/dL (8.4-10.2); Carbon Dioxide 27 mmol/L (22-32); Chloride 101 mmol/L (98-107); Creatine Kinase 50 U/L (30-135); Estimated Glomerular Filt Rate > 60.0 mL/min (>60); Globulin 3.9 g/dL (1.7-4.1); Glucose 147 mg/dL (80-110); HEMOLYSIS < 15 (0-50); Potassium 4.3 mmol/L (3.4-5.1); Sodium 135 mmol/L (137-145); Total Protein 8.2 g/dL (6.3-8.2)
[2021-06-18 18:31] LABS: Add Manual Diff / Slide Review NO; Basophils Absolute Auto 0 /uL (0-100); Basophils Percent Auto 0.5 % (0-2); Eosinophils Absolute Auto 100 /uL (0-450); Eosinophils Percent Auto 1.9 % (2-4); Hematocrit 37.2 % (36-46); Hemoglobin 12.6 g/dL (12.0-16.0); Lymphocytes Absolute Auto 1700 /uL (1100-4500); Lymphocytes Percent Auto 31.5 % (25-40); Mean Corpuscular HGB Conc 33.9 % (30-36); Mean Corpuscular Hemoglobin 31.8 PG (26-34); Mean Corpuscular Volume 93.9 fL (80-100); Monocytes Absolute Auto 700 /uL (0-900); Neutrophils Absolute Auto 2800 /uL (1500-7000); Neutrophils Percent Auto 53.1 % (50-75); Platelet Count 236 X10^3/uL (150-400); Red Blood Cell Count 3.96 X10^6/uL (4.0-5.2); White Blood Cell Count 5.3 X10^3/uL (4.5-11.0)
[2021-06-18 18:35] LABS: D Dimer < 200 ng/mL (<230)
[2021-06-18 18:37] LABS: NT-proBNP (BNP-Adult 18+) 338 pg/mL (<450); Troponin I < 0.012 ng/mL (0.01-0.034)
[2021-06-18] MEDS: SODIUM CHLORIDE 0.9% 1,000 ML 150 ML IV (18:49)
[2021-06-18 19:29] LABS: Amorphous Sediment Urine 1+; Bacteria Urine None Seen; Hyaline Casts Urine 0-1/LPF; RBC Urine 0-1/HPF (0-5/HPF); Squamous Epithelial Cell Urine 0-1 /HPF (0-5/HPF); WBC Urine 0-1/HPF (0-5/HPF)
--- NOTE | 2021-06-18 21:24 | P.HP_ITS ---
History of Present Illness History of Present Illness Date Patient Seen: 06/18/21 Time Patient Seen: 21:24 Chief complaint: syncope Narrative: This is an 86-year-old female with a history of left arm lymphedema, left groin lymphadenopathy with recent equivocal biopsy, atrial fibrillation, hypertension and left bundle branch block. She had a very busy day today and towards the end of the day when she was sitting on her couch she had a 15 second episode where she was unresponsive and apparently syncopal. She describes her day in quite granular detail, going to the post office, then to [employer] and then to [employer], eating oatmeal and 3 prunes this morning and then when her son came over to help going outside to work in the yard. At that point her neighbor came over to visit and they sat in the garage chatting for over 2 hours. She then went into the house, sat in the living room to watch the [employer] play and apparently was syncopal. She thinks she was out for about 15 seconds. 911 was called and she is a bit mystified that her son and and had reacted that strongly. Her is quite ill himself with multiple sclerosis and prostate cancer. She had previously felt well today and has not experienced any chest pain, shortness of breath, nausea, vomiting, diarrhea, palpitations, seizures. She does not drink alcohol. Her as needed daily lorazepam dose timing today and yesterday is unclear. This has never happened to her before. She is quite worried by a recent lymphadenopathy problem in the left groin and reports a recent biopsy that was equivocal. Dr. Vergara, on-call for Cardiology, was phone consulted from the emergency department and recommended observation while on telemetry due to unprovoked syncope. Patient History Medical History (Updated 06/18/21 @ 23:15 by Dae Chapman MD) Essential hypertension with goal blood pressure less than 130/85 History of endometriosis History of left breast cancer History of trigger finger Hypothyroidism Inguinal lymphadenopathy Left bundle branch block Lymphedema of arm Paroxysmal atrial fibrillation Surgical History (Updated 06/18/21 @ 23:15 by Dae Chapman MD) H/O hysterectomy for benign disease History of 3 sections History of appendectomy History of carpal tunnel release History of modified radical mastectomy History of tonsillectomy History of total bilateral knee replacement Family & Social History Family History (Updated 06/18/21 @ 23:16 by Dae Chapman MD) Father Heart disease Hypertension Stroke Mother Appendicitis Social History: household members spouse Safety & Behavioral: Feels Safe in Current Yes Environment Been Physically Hurt or No Threatened By a Person Tobacco & Substance use: Smoking Status Never smoker alcohol intake current Substance Use Type does not use Comment: Her backup decision maker is her Jose E Ji. Meds Home Medications and Allergies Home Medications Medication Instructions Recorded Confirmed Type FLUNISOLIDE 250MCG INHALER- 1 spray INH Q DAY #0 08/04/07 06/18/21 History (Aerobid) MULTIVITAMIN (Multivitamin 1 cap PO EVERY DAY #0 08/04/07 06/18/21 History -) CHOLECALCIFEROL (VITAMIN D3) 2,000 units PO QDAY #0 03/05/13 06/18/21 History (VITAMIN D3) Fish Oil (FISH OIL~) 1,200 mg PO QDAY #0 03/05/13 06/18/21 History cyclosporine 0.05 % eye drops in a 1 drp OPH QA #0 03/05/13 06/18/21 History dropperette (Restasis) ibuprofen 200 mg tablet (Advil) 200 mg PO QDAYP PRN #0 03/05/13 06/18/21 History metoprolol tartrate 25 mg tablet 12.5 mg PO QDAYP #0 03/05/13 06/18/21 History calcium carbonate 600 mg calcium 600 mg PO BID tab 04/12/18 06/18/21 History (1,500 mg) tablet famotidine 10 mg tablet (Pepcid AC) 10 mg PO PRN PRN 04/12/18 06/18/21 History ferrous gluconate 324 mg (36 mg 324 mg PO DAILY tab 04/12/18 06/18/21 History iron) tablet nystatin 100,000 unit/gram topical 1 applictn TOP BID PRN 04/12/18 06/18/21 History cream fexofenadine 180 mg tablet 180 mg PO DAILY 05/14/18 06/18/21 History (Corina Allergy) methylcellulose (laxative) 500 mg 500 mg PO DAILY 05/14/18 06/18/21 History tablet (Citrucel) psyllium husk 0.4 gram capsule 0.4 g PO DAILY PRN 05/14/18 06/18/21 History (Metamucil) apixaban 2.5 mg tablet (Eliquis) 2.5 mg PO BID 05/10/21 06/18/21 History cyanocobalamin (vitamin B-12) 1,000 mcg IM Q2W 06/18/21 06/18/21 History 1,000 mcg/mL injection solution docusate sodium 100 mg capsule 100 mg PO DAILY 06/18/21 06/18/21 History (Colace) levothyroxine 50 mcg tablet 50 mcg PO QAM 06/18/21 06/18/21 History (Levoxyl) levothyroxine 75 mcg tablet 75 mcg PO QAM 06/18/21 06/18/21 History (Levoxyl) lorazepam 0.5 mg tablet 0.5 mg PO DAILY 06/18/21 06/18/21 History Allergies Allergy/AdvReac Type Severity Reaction Status Date / Time ciprofloxacin [From CIPRO] Allergy Mild itching Verified 05/10/21 17:04 atorvastatin [From Lipitor] Allergy muscles Verified 05/10/21 17:04 stop working Sulfa (Sulfonamide AdvReac Severe n\v Verified 05/10/21 17:04 Antibiotics) [SULFA (SULFONAMIDE ANTIBIOTICS)] adhesive [ADHESIVE] AdvReac Mild some Verified 05/10/21 17:04 tapes, redness and itching hydroxyzine [From Vistaril] AdvReac bad Verified 05/10/21 17:04 muscle spasms levothyroxine AdvReac colitis Verified 05/10/21 17:04 and diarrhea Review of Systems Review of Systems Narrative: Positive for syncope and anxiety. Negative for fevers, chills, sweats, nausea, vomiting, abdominal pain, chest pain, palpitations, seizures, rashes, bleeding, dysuria. Exam Vital Signs (past 8 hours): - 06/18/21 18:07 06/18/21 18:09 06/18/21 18:13 Temperature 97.8 F Pulse Rate 68 69 66 Respiratory Rate 20 17 16 Blood Pressure 141/67 H 149/65 H 141/67 H Pulse Oximetry 98 98 99 06/18/21 18:30 06/18/21 18:48 06/18/21 19:00 Temperature Pulse Rate 67 63 64 Respiratory Rate 29 H 26 H 27 H Blood Pressure 138/77 146/65 H 142/68 H Pulse Oximetry 99 99 99 06/18/21 19:30 06/18/21 20:02 06/18/21 20:04 Temperature Pulse Rate 62 65 63 Respiratory Rate 21 Blood Pressure 131/63 155/71 H Pulse Oximetry 99 95 97 06/18/21 20:30 Temperature Pulse Rate 75 Respiratory Rate 23 Blood Pressure 160/77 H Pulse Oximetry 96 Oxygen Delivery Method Room Air Narrative Exam Narrative: Alert and oriented x3 No apparent distress Pupils are equally round and reactive to light and accommodation Extraocular muscles are intact Sclerae are pink and nonicteric Throat looks normal No lymph nodes are felt head, neck, supraclavicular area Heart is regular rate and rhythm without murmur Lungs are clear to auscultation bilaterally Abdomen is soft, bowel sounds positive, nontender, no organomegaly There is fullness of the left groin consistent with the reported lymphadenopathy Extremities have no ankle edema except for chronic lymphedema with a compression stocking on the left arm. Skin: No rash or jaundice Neurology exam: Cranial nerves 2-12 test intact, no tremor, motor function is 4/5 throughout, deep tendon reflexes are symmetric Objective Labs Result Diagrams: 06/18/21 18:05 06/18/21 18:05 Labs: Laboratory Results - last 24 hr 06/18/21 06/18/21 06/18/21 18:05 18:05 18:05 WBC 5.3 RBC 3.96 L Hgb 12.6 Hct 37.2 MCV 93.9 MCH 31.8 MCHC 33.9 RDW 13.0 Plt Count 236 Neut % (Auto) 53.1 Lymph % (Auto) 31.5 [place] % (Auto) 13.0 Eos % (Auto) 1.9 L Baso % (Auto) 0.5 Neut # (Auto) 2800 Lymph # (Auto) 1700 [place] # (Auto) 700 Eos # (Auto) 100 Baso # (Auto) 0 PT 13.1 H INR 1.2 D-Dimer < 200 Sodium 135 L Potassium 4.3 Chloride 101 Carbon Dioxide 27 BUN 19 H Creatinine 0.69 Estimated GFR > 60.0 BUN/Creatinine Ratio 27.5 H Glucose 147 H Calcium 9.6 Magnesium 2.0 Total Bilirubin 0.5 AST 37 H ALT 30 Alkaline Phosphatase 82 Total Creatine Kinase 50 CK-MB (CK-2) TNP CK-MB (CK-2) Rel Index TNP Troponin I < 0.012 NT-Pro-B Natriuret Pep 338 Total Protein 8.2 Albumin 4.3 Globulin 3.9 Albumin/Globulin Ratio 1.1 Urine RBC Urine WBC Ur Squamous Epith Cells Amorphous Sediment Urine Bacteria Hyaline Casts Ur Culture Indicated? 06/18/21 18:45 WBC RBC Hgb Hct MCV MCH MCHC RDW Plt Count Neut % (Auto) Lymph % (Auto) [place] % (Auto) Eos % (Auto) Baso % (Auto) Neut # (Auto) Lymph # (Auto) [place] # (Auto) Eos # (Auto) Baso # (Auto) PT INR D-Dimer Sodium Potassium Chloride Carbon Dioxide BUN Creatinine Estimated GFR BUN/Creatinine Ratio Glucose Calcium Magnesium Total Bilirubin AST ALT Alkaline Phosphatase Total Creatine Kinase CK-MB (CK-2) CK-MB (CK-2) Rel Index Troponin I NT-Pro-B Natriuret Pep Total Protein Albumin Globulin Albumin/Globulin Ratio Urine RBC 0-1/hpf Urine WBC 0-1/hpf Ur Squamous Epith Cells 0-1 /hpf Amorphous Sediment 1+ Urine Bacteria None seen Hyaline Casts 0-1/lpf Ur Culture Indicated? Culture not indicate Assessment & Plan Assessment & Plan narrative: This is an 86-year-old female with a history of atrial fibrillation, hypertension, lymphedema, left bundle branch block and left groin lymphadenopathy who became very briefly syncopal towards the end of a busy day while sitting in her chair in the living room watching a football game. Unprovoked syncope, present on admission. Active. -approximately 15 seconds of unresponsiveness without any change in position while seated on her chair -no arrhythmias noted in the emergency department. -continue telemetry observation for 24 hours as recommended by Cardiology. -repeat troponin on 06/19 -no signs of urinary tract infection, anemia, pneumonia, acute [place], tachyarrhythmia. Hypertension, present on admission. Active. -continue metoprolol and lisinopril Paroxysmal atrial fibrillation, present on admission. Active. -continue Eliquis and metoprolol Left bundle branch block, present on admission. Stable -Patient reports this is not new Hyperglycemia, present on admission. Active. -blood sugar 147, follow with Accu-Cheks b.i.d. and check A1c. Left groin lymphadenopathy -patient reports recent operative lymph node biopsy with equivocal results, followed by primary care Hypothyroidism, present on admission. Active. -clarify dosing of levothyroxine which she reports she can only tolerate if given name brand Synthroid. -she reports she takes the same dose every day except for Sunday. It is not clear whether she takes the 50 mg regularly or the 75 mg regularly and which dose she takes on Mondays. Left upper extremity lymphadenopathy, present on admission. Stable. -continue compression sleeve. DVT prevention with Eliquis ongoing Time Spent With Patient Critical Care time: I spent a total of [] minutes of critical care time on this patient's care today; this time is exclusive of procedural time.
[2021-06-18 21:38] LABS: COVID19 - ADMIT (NP swab/PCR) Negative (Negative)
[2021-06-18] MEDS: METOPROLOL ER 25 MG TABLET 12.5 MG PO (22:25)
[2021-06-18] MEDS: APIXABAN 5 MG TABLET 2.5 MG PO (22:25)
[2021-06-19] VITALS (7 sets, daily range): BP systolic 106–146; BP diastolic 50–79; PULSE 58–71; RESP 12–18; TEMP 36–36.9; O2SAT 93–97
[2021-06-19] MEDS: ACETAMINOPHEN 325 MG TABLET 650 MG PO ×2 (01:02→23:02)
[2021-06-19 05:35] LABS: BUN Creatinine Ratio 35.5 (6-22); Blood Urea Nitrogen 22 mg/dL (7-17); Calcium 8.8 mg/dL (8.4-10.2); Carbon Dioxide 25 mmol/L (22-32); Chloride 107 mmol/L (98-107); Estimated Glomerular Filt Rate > 60.0 mL/min (>60); Glucose 87 mg/dL (80-110); HEMOLYSIS < 15 (0-50); Potassium 4.1 mmol/L (3.4-5.1); Sodium 136 mmol/L (137-145)
[2021-06-19 05:46] LABS: Troponin I < 0.012 ng/mL (0.01-0.034)
[2021-06-19] MEDS: LEVOTHYROXINE 75 MCG 75 EACH PO (06:56)
[2021-06-19] MEDS: FISH OIL 1,000 MG CAPSULE 1000 MG PO (10:19)
[2021-06-19] MEDS: PSYLLIUM HUSK 1 PACKET PO (10:19)
[2021-06-19] MEDS: APIXABAN 5 MG TABLET 2.5 MG PO ×2 (10:19→21:24)
--- NOTE | 2021-06-19 11:57 | DI.ECHO.S_ITS ---
[facility]---------+ [facility] +---------+ : : [address] : : : : [id number] : : : : Phone: [phone] +---------+ Echocardiogram Report + + :Name: JUANCHO WOMACK Study Date: 06/20/2021 Height: 63 in : :[facility] ReadingLocation: Weight: 142 lb : : Gender: Female BSA: 1.7 m2 : :: 1935 Age: 86 yrs BP: 124/66 mmHg: :Reason For Study: SYNCOPE, AFIB, LBBB : :Ordering Physician: MARY KAY, : :GUERITA FLYNN Performed By: Smita Edwards : :Referring: GUERITA MUÑIZ : + + Interpretation Summary The patient was in atrial fibrillation with heart rates between 70-147 bpm during the exam. Normal left ventricle size with ejection fraction 65-70%. Mildly dilated left atrium. Mild mitral regurgitation. Moderate tricuspid regurgitation. Procedure: A two-dimensional transthoracic echocardiogram with color flow and Doppler was performed. The study quality was technically adequate. The patient had an echocardiogram, but there is no comparison study available. The patient was in atrial fibrillation with heart rates between 70-147 bpm during the exam. The patient had a bundle branch block rhythm during the exam. Left Ventricle: The left ventricle is normal in size and wall thickness. The ejection fraction is estimated to be 65-70%. There are no focal wall motion abnormalities. Diastolic function could not be accurately assessed due to atrial fibrillation. Right Ventricle: The right ventricle is normal in size and function. Atria: The left atrium is mildly dilated. Right atrial size is normal. There is no Doppler evidence for an interatrial shunt. Mitral Valve: The mitral valve leaflets appear mildly thickened, but open well. There is mild mitral regurgitation. Aortic Valve: The aortic valve is trileaflet. The aortic valve opens well. There is no aortic valve stenosis. There is trace aortic regurgitation. Tricuspid Valve: The tricuspid valve is normal in structure and function. There is moderate tricuspid regurgitation. The right ventricular systolic pressure is estimated to be at least 28 mmHg based on an estimated right atrial pressure of 3 mm Hg. Pulmonic Valve: The pulmonic valve is not well seen, but is grossly normal. There is mild pulmonic regurgitation. Great Vessels: The aortic root is normal size. The ascending aorta could not be visualized. The IVC is of normal diameter and collapses greater than 50% with a sniff. This suggests a low right atrial pressure of 3 mm Hg. Pericardium/ Pleura There is no pericardial effusion. There is no pleural effusion. MMode/2D Measurements & Calculations LVIDd: 4.1 cm LVOT diam: 2.0 cm LVIDs: 2.9 cm Ao root diam: 3.3 cm FS: 29.6 % IVSd: 0.87 cm LVPWd: 0.86 cm LV whitaker. diameter/BSA (cm/m^2): 2.4 LV sys. diameter/BSA (cm/m^2): 1.7 LA A2 area: 21.1 cm2 RA long axis: 5.3 cm LA A4 area: 21.2 cm2 RA area: 17.6 cm2 LA length (vol): 6.1 cm RA vol: 50.1 ml LA vol: 62.7 ml RA : 30.0 ml/m2 LA vol index: 37.5 ml/m2 IVC diam: 1.6 cm RVD1 (basal): 2.9 cm TAPSE: 2.4 cm Doppler Measurements & Calculations Ao V2 max: 122.0 cm/sec LVOT Max Augusto: 108.3 cm/sec Ao V2 mean: 81.4 cm/sec LV V1 max P.7 mmHg Ao max P.0 mmHg LV V1 VTI: 18.8 cm Ao mean P.1 mmHg BENSON(I,D): 2.9 cm2 Ao V2 VTI: 21.2 cm BENSON(V,D): 2.9 cm2 sev ratio: 0.89 BENSON indexed to BSA (cm^2/m^2): 1.7 MV E max augusto: 86.2 cm/sec TR max augusto: 251.5 cm/sec MV A max augusto: 1.6 cm/sec TR max P.3 mmHg MV E/A: 55.0 PA V2 max: 128.7 cm/sec Med Peak E' Augusto: 8.7 cm/sec PA V2 mean: 81.7 cm/sec E/E' med: 9.9 PA mean P.2 mmHg Lat Peak E' Augusto: 7.8 cm/sec PA pr(Accel): 51.6 mmHg E/E' lat: 11.1 E/e' average: 10.5 MV dec time: 0.19 sec SV(LVOT): 61.6 ml Electronically signed by: Gurinder Frausto on Reading Physician:06/20/2021 03:29 PM
--- NOTE | 2021-06-19 12:46 | CM.DANOTE ---
DCP: Case received, EMR reviewed and met with patient. Introduced self and role. Was able to obtain information regarding patient's baseline activity status prior to hospitalization. DCP assessment completed with information currently available. Patient is an 86 year old female who admitted yesterday evening to the care of the hospitalist team. PCP: Dr. Ferreira. Payer: confirmed: Medicare/AARP. Patient came to the hospital via ambulance secondary to having a syncopal episode. Patient has history of a-fib, as well as lymphadema, secondary to history of breast cancer. She wears a compression sleeve on her left arm. Patient is here for a cardiac work up to determine the cause of her symptoms. Met with patient in her room. She is pleasant, and active at her baseline. She indicated that she had been very busy that day prior to her symptoms, doing errands, and she had noticed a visual disturbance and blacked out. She has a at home that has MS and a recent pinched nerve, that she worries about. Her son is presently at home with him. She had mentioned in the near future of them both going to live at [facility], and she has also been looking into home caregiving for her so she can get out to appointments. Asked her if she needed a Senior Resource Book, and she indicated that she already has one, she obtained one at the PCP office. She may be looking into caregiver agencies so she can have a reprieve. She stated that her does still drive, but she worries about him. P: DCP to continue to follow. Patient should be going home tomorrow as long as her cardiac tests do not show any significant abnormalities. is here visiting as the designated visitor. Meme Martinez RN/Decaler Discharge Planning/Care Management Discharge Assessment Start: 06/19/21 12:45 Freq: Status: Active Protocol: Document 06/19/21 12:45 (Rec: 06/19/21 12:46 [id number]) Discharge Planning Assessment Assigned [employer] Representative Meme Martinez RN/Decaler Advance Directives? Yes Advance Directives on File No History Provided By Patient,Medical Record Prior Living Arrangements House Household Members spouse Type of transporation used prior to Drives own vehicle admit Independent with ADL's Yes Is patient alert and oriented? Yes Caregiver for Another No Barriers to Discharge No Discharge Plan Home Transportation Arrangement Son Referrals Initiated None needed Whiteboard Updated in Patient Room with Yes name and ext. # of Ocean [employer] Representative Review Status In Process Next Review Type Continued Stay Review
--- NOTE | 2021-06-19 15:00 | PM.PN.1 ---
Subjective Subjective Date Patient Seen: 06/19/21 Time Patient Seen: 15:00 Interval history: No dizziness today, denies chest pain, shortness of breath. States she intermittently feels numb in her face, more often on the left than right but both sides. Not seemingly related to anything. Denies numbness, tingling, weakness, slurred speech, facial droop. Exam Vital Signs (past 8 hours): - 06/19/21 08:48 Temperature 97.7 F Pulse Rate 63 Respiratory Rate 18 Blood Pressure 130/70 Pulse Oximetry 97 Oxygen Delivery Method Room Air Oxygen Flow Rate 0 Narrative Exam Narrative: GENERAL APPEARANCE: Well developed, well nourished, in no acute distress. HEENT: Normocephalic atraumatic, extraocular muscles are intact, oropharynx is clear and mucous membranes are moist, neck is supple without adenopathy NECK: Supple and symmetric. There was no thyroid enlargement, and no tenderness, or masses were felt. CHEST: Normal AP diameter and normal contour without any kyphoscoliosis. LUNGS: Auscultation of the lungs revealed no wheezes, rhonchi, or rales. CARDIOVASCULAR: There was a regular rate and rhythm without any murmurs, gallops, rubs. Peripheral pulses were 2+ and symmetric. ABDOMEN: Soft and nontender with normal bowel sounds. No ascites was noted. MUSCULOSKELETAL: There was no tenderness or effusions noted. Muscle strength and tone were normal. EXTREMITIES: No cyanosis, clubbing or edema. NEUROLOGIC: Alert and oriented x 3. Normal affect. Strength is +5/5 in the Upper Extremities and Lower Extremities Bilaterally. Sensation to touch and sharp object was normal. Heel to ortez unremarkable. CN 2-12 grossly intact bilaterally. Objective Labs Result Diagrams: 06/18/21 18:05 06/19/21 05:11 Labs: Laboratory Results - last 24 hr 06/18/21 06/18/21 06/18/21 18:05 18:05 18:05 WBC 5.3 RBC 3.96 L Hgb 12.6 Hct 37.2 MCV 93.9 MCH 31.8 MCHC 33.9 RDW 13.0 Plt Count 236 Neut % (Auto) 53.1 Lymph % (Auto) 31.5 [place] % (Auto) 13.0 Eos % (Auto) 1.9 L Baso % (Auto) 0.5 Neut # (Auto) 2800 Lymph # (Auto) 1700 [place] # (Auto) 700 Eos # (Auto) 100 Baso # (Auto) 0 PT 13.1 H INR 1.2 D-Dimer < 200 Sodium 135 L Potassium 4.3 Chloride 101 Carbon Dioxide 27 BUN 19 H Creatinine 0.69 Estimated GFR > 60.0 BUN/Creatinine Ratio 27.5 H Glucose 147 H Hemoglobin A1c Calcium 9.6 Magnesium 2.0 Total Bilirubin 0.5 AST 37 H ALT 30 Alkaline Phosphatase 82 Total Creatine Kinase 50 CK-MB (CK-2) TNP CK-MB (CK-2) Rel Index TNP Troponin I < 0.012 NT-Pro-B Natriuret Pep 338 Total Protein 8.2 Albumin 4.3 Globulin 3.9 Albumin/Globulin Ratio 1.1 TSH Urine RBC Urine WBC Ur Squamous Epith Cells Amorphous Sediment Urine Bacteria Hyaline Casts Ur Culture Indicated? SARS-CoV-2 (PCR) 06/18/21 06/18/21 06/18/21 18:05 18:15 18:45 WBC RBC Hgb Hct MCV MCH MCHC RDW Plt Count Neut % (Auto) Lymph % (Auto) [place] % (Auto) Eos % (Auto) Baso % (Auto) Neut # (Auto) Lymph # (Auto) [place] # (Auto) Eos # (Auto) Baso # (Auto) PT INR D-Dimer Sodium Potassium Chloride Carbon Dioxide BUN Creatinine Estimated GFR BUN/Creatinine Ratio Glucose Hemoglobin A1c 5.0 Calcium Magnesium Total Bilirubin AST ALT Alkaline Phosphatase Total Creatine Kinase CK-MB (CK-2) CK-MB (CK-2) Rel Index Troponin I NT-Pro-B Natriuret Pep Total Protein Albumin Globulin Albumin/Globulin Ratio TSH 1.20 Urine RBC 0-1/hpf Urine WBC 0-1/hpf Ur Squamous Epith Cells 0-1 /hpf Amorphous Sediment 1+ Urine Bacteria None seen Hyaline Casts 0-1/lpf Ur Culture Indicated? Culture not indicate SARS-CoV-2 (PCR) 06/18/21 06/19/21 20:35 05:11 WBC RBC Hgb Hct MCV MCH MCHC RDW Plt Count Neut % (Auto) Lymph % (Auto) [place] % (Auto) Eos % (Auto) Baso % (Auto) Neut # (Auto) Lymph # (Auto) [place] # (Auto) Eos # (Auto) Baso # (Auto) PT INR D-Dimer Sodium 136 L Potassium 4.1 Chloride 107 Carbon Dioxide 25 BUN 22 H Creatinine 0.62 Estimated GFR > 60.0 BUN/Creatinine Ratio 35.5 H Glucose 87 Hemoglobin A1c Calcium 8.8 Magnesium Total Bilirubin AST ALT Alkaline Phosphatase Total Creatine Kinase CK-MB (CK-2) CK-MB (CK-2) Rel Index Troponin I < 0.012 NT-Pro-B Natriuret Pep Total Protein Albumin Globulin Albumin/Globulin Ratio TSH Urine RBC Urine WBC Ur Squamous Epith Cells Amorphous Sediment Urine Bacteria Hyaline Casts Ur Culture Indicated? SARS-CoV-2 (PCR) Negative [facility] Medical History (Updated 06/19/21 @ 03:17 by Colt Whitehead DO) Essential hypertension with goal blood pressure less than 130/85 History of endometriosis History of left breast cancer History of trigger finger Hypothyroidism Inguinal lymphadenopathy Left bundle branch block Lymphedema of arm Paroxysmal atrial fibrillation Surgical History (Updated 06/18/21 @ 23:15 by Dae Chapman MD) H/O hysterectomy for benign disease History of 3 sections History of appendectomy History of carpal tunnel release History of modified radical mastectomy History of tonsillectomy History of total bilateral knee replacement Family History (Updated 06/18/21 @ 23:16 by Dae Chapman MD) Father Heart disease Hypertension Stroke Mother Appendicitis Social History marital status: household members: spouse Smoking Status: Never smoker alcohol intake: current Assessment & Plan Assessment & Plan narrative: This is an 86-year-old female with a history of atrial fibrillation, hypertension, lymphedema, left bundle branch block and left groin lymphadenopathy who became very briefly syncopal towards the end of a busy day while sitting in her chair in the living room watching a football game. 1. Unprovoked syncope, present on admission.? Active.? -approximately 15 seconds of unresponsiveness without any change in position while seated on her chair -no arrhythmias noted in the emergency department or thus far. -continue telemetry observation for 24 hours as recommended by Cardiology. -repeat troponin on 06/19 negative. -no signs of urinary tract infection, anemia, pneumonia, acute [place], tachyarrhythmia. No neurological findings on exam or significant trauma to check head CT. -echo ordered 2. Hypertension, present on admission.? Active. -continue metoprolol and lisinopril 3. Paroxysmal atrial fibrillation, present on admission.? Active. -continue Eliquis and metoprolol 4. Left bundle branch block, present on admission.? Stable -Patient reports this is not new 5. Hyperglycemia, present on admission.? Active.? -blood sugar 147, follow with Accu-Cheks b.i.d. and check A1c. 6. Left groin lymphadenopathy -patient reports recent operative lymph node biopsy with equivocal results, followed by primary care 7. Hypothyroidism, present on admission.? Active.? -clarify dosing of levothyroxine which she reports she can only tolerate if given name brand Synthroid.? -she reports she takes the same dose every day except for Sunday.? It is not clear whether she takes the 50 mg regularly or the 75 mg regularly and which dose she takes on Mondays. 8. Left upper extremity lymphadenopathy, present on admission.? Stable.? -continue compression sleeve. DVT prevention with Eliquis ongoing Dispo: likely discharge tomorrow unless arryhtmia identified. Time Spent With Patient Critical Care time: I spent a total of [] minutes of critical care time on this patient's care today; this time is exclusive of procedural time.
[2021-06-19] MEDS: METOPROLOL ER 25 MG TABLET 12.5 MG PO (21:25)
[2021-06-20 04:47] VITALS: BP 117/56; PULSE 63; RESP 12; TEMP 36.3; O2SAT 97
[2021-06-20] MEDS: LEVOTHYROXINE 50 MCG 50 EACH PO (06:30)
[2021-06-20 08:00] VITALS: BP 102/59; PULSE 100; RESP 16; TEMP 36.3; O2SAT 97
[2021-06-20] MEDS: PSYLLIUM HUSK 1 PACKET PO (08:19)
[2021-06-20] MEDS: APIXABAN 5 MG TABLET 2.5 MG PO (08:20)
[2021-06-20] MEDS: CYCLOSPORINE EYE-BOTH (08:22)
[2021-06-20] MEDS: FISH OIL 1,000 MG CAPSULE 1000 MG PO (08:24)
--- NOTE | 2021-06-20 09:24 | P.DS_ITS ---
History of Present Illness History of Present Illness Date Patient Seen: 06/20/21 Time Patient Seen: 09:25 Chief complaint: syncope Narrative: Per Dr. Chapman, This is an 86-year-old female with a history of left arm lymphedema, left groin lymphadenopathy with recent equivocal biopsy, atrial fibrillation, hypertension and left bundle branch block.? She had a very busy day today and towards the end of the day when she was sitting on her couch she had a 15 second episode where she was unresponsive and apparently syncopal.? She describes her day in quite granular detail, going to the post office, then to [employer] and then to [employer], eating oatmeal and 3 prunes this morning and then when her son came over to help going outside to work in the yard.? At that point her neighbor came over to visit and they sat in the garage chatting for over 2 hours.? She then went into the house, sat in the living room to watch the [place] play and apparently was syncopal.? She thinks she was out for about 15 seconds.? 911 was called and she is a bit mystified that her son and and had reacted that strongly.? Her is quite ill himself with multiple sclerosis and prostate cancer.? She had previously felt well today and has not experienced any chest pain, shortness of breath, nausea, vomiting, diarrhea, palpitations, seizures.? She does not drink alcohol.? Her as needed daily lorazepam dose timing today and yesterday is unclear.? This has never happened to her before.? She is quite worried by a recent lymphadenopathy problem in the left groin and reports a recent biopsy that was equivocal.? Dr. Vergara, on-call for Cardiology, was phone consulted from the emergency department and recommended observation while on telemetry due to unprovoked syncope. Discharge Providers Provider Date of admission: 06/18/21 20:38 Discharge Date: 06/20/21 Primary care physician: Rob Ferreira MD Discharge provider: Monty Serrano DO Summary Hospital Course Discharge Diagnosis: Please see hospital course by problem list noted below. Hospital Course: This is an 86-year-old female with a history of atrial fibrillation, hypertension, lymphedema, left bundle branch block and left groin lymphadenopathy who became very briefly syncopal towards the end of a busy day while sitting in her chair in the living room watching a football game. 1. Unprovoked syncope, present on admission.? Active.? -approximately 15 seconds of unresponsiveness without any change in position while seated on her chair -continued telemetry observation for 24 hours as recommended by Cardiology. She has a few isolated episodes of atrial fibrillation with RVR, but no other abno rmalities. Episodes self resolved. -troponin testing was negative. -no signs of urinary tract infection, anemia, pneumonia, acute MA, tachyarrhythmia. No neurological findings on exam or significant trauma to check head CT. -echo with no significant valvular disease, EF normal at 65-70%. 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 2. Hypertension, present on admission.? Active. -continued metoprolol and lisinopril 3. Paroxysmal atrial fibrillation, present on admission.? Active. -continued Eliquis and metoprolol -recommend outpatient holter monitoring as noted above. 4. Left bundle branch block, present on admission.? Stable 5. Hyperglycemia, present on admission. resolved - a1c 5.0% no interventions needed. 6. Left groin lymphadenopathy -patient reports recent operative lymph node biopsy with equivocal results, followed by primary care 7. Hypothyroidism, present on admission.? Active.? - continued home medications 8. Left upper extremity lymphadenopathy, present on admission.? Stable.? -continued compression sleeve. Exam Vital Signs (past 8 hours): - 06/20/21 04:47 06/20/21 08:00 Temperature 97.3 F L 97.4 F L Pulse Rate 63 100 H Respiratory Rate 12 16 Blood Pressure 117/56 L 102/59 L Pulse Oximetry 97 97 Oxygen Delivery Method Room Air Oxygen Flow Rate 0 Narrative Exam Narrative: GENERAL APPEARANCE: Well developed, well nourished, in no acute distress. HEENT:? Normocephalic atraumatic, extraocular muscles are intact, oropharynx is clear and mucous membranes are moist, neck is supple without adenopathy NECK: Supple and symmetric. There was no thyroid enlargement, and no tenderness, or masses were felt. CHEST: Normal AP diameter and normal contour without any kyphoscoliosis. LUNGS: Auscultation of the lungs revealed no wheezes, rhonchi, or rales. CARDIOVASCULAR: There was a regular rate and rhythm without any murmurs, gallops, rubs. Peripheral pulses were 2+ and symmetric. ABDOMEN: Soft and nontender with normal bowel sounds. No ascites was noted. MUSCULOSKELETAL: There was no tenderness or effusions noted. Muscle strength and tone were normal. EXTREMITIES: No cyanosis, clubbing or edema. NEUROLOGIC: Alert and oriented x 3. Normal affect. Strength is +5/5 in the Upper Extremities and Lower Extremities Bilaterally. Sensation to touch and sharp object was normal. Heel to ortez unremarkable. CN 2-12 grossly intact bilaterally. Objective Labs Result Diagrams: 06/18/21 18:05 06/19/21 05:11 [facility] Medical History (Updated 06/19/21 @ 03:17 by Colt Whitehead DO) Essential hypertension with goal blood pressure less than 130/85 History of endometriosis History of left breast cancer History of trigger finger Hypothyroidism Inguinal lymphadenopathy Left bundle branch block Lymphedema of arm Paroxysmal atrial fibrillation Surgical History (Updated 06/18/21 @ 23:15 by Dae Chapman MD) H/O hysterectomy for benign disease History of 3 sections History of appendectomy History of carpal tunnel release History of modified radical mastectomy History of tonsillectomy History of total bilateral knee replacement Family History (Updated 06/18/21 @ 23:16 by Dae Chapman MD) Father Heart disease Hypertension Stroke Mother Appendicitis Social History marital status: household members: spouse Smoking Status: Never smoker alcohol intake: current Discharge Plan Discharge Plan Patient Disposition: Home Provider Discharge Comment: You were admitted to the hospital after an episode of probable syncope. Echocardiogram and telemetry monitoring do not show any cardiac cause for this. 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 Discharge orders & Medications Prescriptions: Continued FLUNISOLIDE 250MCG INHALER- (Aerobid) 1 spray intranasal DAILY Qty: 0 RF: 0 MULTIVITAMIN (Multivitamin -) 1 cap PO EVERY DAY Qty: 0 RF: 0 metoprolol tartrate 25 MG tablet 12.5 mg PO QDAYP Qty: 0 RF: 0 Restasis 1 EACH dropperette 1 drp OPHTH QAM Qty: 0 RF: 0 CHOLECALCIFEROL (VITAMIN D3) (VITAMIN D3) 2,000 units PO QDAY Qty: 0 RF: 0 Fish Oil (FISH OIL~) 1,200 mg PO QDAY Qty: 0 RF: 0 ibuprofen [Advil] 200 MG tablet 200 mg PO QDAYP PRN (Reason: Pain, Moderate) Qty: 0 RF: 0 ferrous gluconate 324 mg (36 mg iron) tablet 324 mg PO DAILY RF: 0 calcium carbonate 600 mg calcium (1,500 mg) tablet 600 mg PO BID RF: 0 famotidine [Pepcid AC] 10 mg tablet 10 mg PO PRN PRN (Reason: Acid Reflux) RF: 0 nystatin 100,000 unit/gram cream 1 applictn TOP BID PRN (Reason: Rash) RF: 0 Eliquis 2.5 mg tablet 2.5 mg PO BID RF: 0 fexofenadine [Corina Allergy] 180 mg Tablet 180 mg PO DAILY RF: 0 Citrucel 500 mg Tablet 500 mg PO DAILY RF: 0 psyllium husk [Metamucil] 0.4 gram Capsule 0.4 g PO DAILY PRN (Reason: Constipation) RF: 0 levothyroxine [Levoxyl] 75 mcg tablet 75 mcg PO QAM RF: 0 levothyroxine [Levoxyl] 50 mcg tablet 50 mcg PO QAM RF: 0 cyanocobalamin (vitamin B-12) 1,000 mcg/mL solution 1,000 mcg IM Q2W RF: 0 lorazepam 0.5 mg tablet 0.5 mg PO DAILY RF: 0 docusate sodium [Colace] 100 mg Capsule 100 mg PO DAILY RF: 0 Medication counseling provided by Pharmacist: Yes Follow up/Referrals: Rob Ferreira MD [Primary Care Provider] - 2 Weeks Diet/Activity/Treatments Diet: Diet as Tolerated Activity: As tolerated Discharge Data Primary Care Provider: Rob Ferreira V Attending Provider: Dae Chapman
--- NOTE | 2021-06-20 10:39 | PC.NURSE ---
PT DISCHARGED TO HOME FROM ROOM 223 - ALL VITALS STABLE AND PT REPORTS NO PAIN OR DISCOMFORT - NO MED CHANGES NOTED AND FOLLOW UP APPT MADE- ALL QUESTIONS ANSWERED TO PTS SATISFACTION
== END 2021-06-20 10:50 | disposition home or self-care (01) ==
LOC: ED 18:07 → AC 20:38
PROVIDERS: Admitting Provider Family Medicine; Emergency Provider Emergency Medicine; PCP Internal Medicine; Referring Provider Emergency Medicine; Visit Provider Family Medicine
DX: R55 Syncope and collapse (principal); I10 Essential (primary) hypertension; I48.0 Paroxysmal atrial fibrillation; E03.9 Hypothyroidism, unspecified; I44.7 Left bundle-branch block, unspecified; R59.0 Localized enlarged lymph nodes; R73.9 Hyperglycemia, unspecified; Z79.01 Long term (current) use of anticoagulants; Z20.822 Contact with and (suspected) exposure to COVID-19
CPT/HCPCS: 36415; 71045; 80048; 80053; 81003; 81015; 82550; 83036; 83735; 83880; 84443; 84484; 85025; 85379; 85610; 87086; 87635; 93005; 93010; 93306; 96360; 96361; 99284; 99285; C9803; G0378; A9270

== ENCOUNTER → 2021-07-04 10:23 | Outpatient (CLI) | payer MEDICARE, SELFPAY ==
[2021-06-18 22:49] VITALS: BMI 25.1
[2021-07-04 11:35] LABS: COVID19 -Nasal RAPID Negative (Negative)
== END ==
PROVIDERS: PCP Internal Medicine; Visit Provider Surgery
DX: Z20.822 Contact with and (suspected) exposure to COVID-19 (principal)
CPT/HCPCS: 87635

== ENCOUNTER 2021-07-05 10:49 | Day surgery (SDC) | payer MEDICARE, SELFPAY ==
[2021-06-18 22:49] VITALS: BMI 25.1
[2021-06-30 14:19] VITALS: BMI 26.4
[2021-07-05] VITALS (7 sets, daily range): BP systolic 86–135; BP diastolic 42–80; PULSE 58–73; RESP 12–19; TEMP 36.2–36.6; O2SAT 93–99; BMI 26.4
--- NOTE | 2021-07-05 | PATH_ITS ---
[facility] Accession Number: [id number] . 01 Material submitted: . PART A: groin - LEFT GROIN LYMPH NODE (B-FIX) PART B: groin - LEFT GROIN LYMPH NODE (FORMALIN) . 01 Clinical history: . EXCISIONAL BX OF LEFT GROIN LYMPH NODE . 01 Diagnosis: A, B. Left Groin Lymph Node, Excision: Atypical lymphoid infiltrates, CD30 positive, see microscopic description. This case will be forwarded to Dr. Christina Muller at [facility] for expert consultation and definitive diagnosis. [facility] 07/15/2021 1313 Local . 01 Comment: Concurrent flow cytometry did not identify definitive diagnostic immunophenotypic abnormalities. No evidence of atypical B-cell, NK cell or T-cell populations (see complete report [id number], for details). . 01 Electronically signed: . Micki Garibay MD, Pathologist NPI- [id number] . 01 Gross description: . A. Received in B5 fixative labeled with the patient's name and left groin lymph node is a 3.7 x 2.5 x 2.2 cm martini-brown rubbery soft tissue. The specimen is serially sectioned to reveal a martini-brown lobulated cut surface and entirely submitted in cassettes A1 through A4. B. Received in formalin labeled with the patient's name and left groin lymph node are multiple pieces of martini-brown rubbery soft tissue, measuring 3.8 x 3.5 x 1.2 cm in aggregate. Sectioning reveals a martini- brown lobulated cut surface. The specimen is entirely submitted in cassettes B1 through B3. ([id number]) /[facility] 07/06/2021 1415 Local . 01 Microscopic: . Microscopic examination reveals abnormal william architecture and scattered large atypical lymphocytes within expanded interfollicular areas, in a background of predominantly small lymphocytes and numerous histiocytes. Hodgkin cells or hallmark cells are not definitely seen. To better evaluate the atypical lymphoid infiltrates, a panel of immunostains is performed, with the following results: . CD3 - Predominantly small lymphocytes positive/large atypical cells no definite expression. CD5 - Predominantly small lymphocytes positive/large atypical cells no definite expression. CD10 - Residual follicles positive. Large atypical cells negative. CD20 - Small B-lymphocytes positive. Few large atypical cells positive. PAX-5 - Small B-lymphocytes positive. Few large atypical cells positive. OCT-2 and ANAMARIA-1: Small B-lymphocytes positive. CD21 - Extended follicular dendritic cells positive. CD30 - Numerous aypical large lymphocytes positive. CD15 - Atypical large lymphocytes negative/small myeloid cells positive. ALK-1 - Atypical large cells negative. BCL2 - Small T-lymphocytes positive/germinal centers negative/negative for definite expression on the large lymphocytes. BCL6 - Subset of B-lymphocytes positive within the expanded interfollicular areas. Cyclin D1 - Some proliferating lymphocytes positive. Negative for definite expression on the large atypical lymphocytes. Proliferation marker Ki-67 - Increased, approximately 40-60%. GREGOR In situ hybridization - Few lymphocytes positive (with appropriate positive and negative controls). CD68 - Histiocytes positive, increased. CARISA - Rare cells positive. CD4 - Small T-lymphocytes and histiocytes positive. Large atypical cells no definite expression. CD7 - Small T-lymphocytes positive. Large atypical lymphocytes no definite expression. CD8 - Subset of T-lymphocytes positive, negative for definite expression on the large atypical cells. JAMES (garber epithelial marker) - Negative for metastatic carcinoma. S100 - Negative for metastatic melanoma/dendritic cells positive. . Based on the above immunophenotype, the large atypical lymphocytes are positive for CD30 with possible expression of CD20 and PAX5, without ALK-1 co-expression, or definite T-cell marker expression. . At this juncture, the case will be forwarded for expert consultation to Dr. Christina Muller at [facility], to more accurately characterize those large atypical CD30 positive lymphocytes. The consultation report will follow in an addendum. . * This test was developed and its performance characteristics determined by [employer]. It has not been cleared or approved by the U.S. Food and Drug Administration. The FDA has determined that such clearance or approval is not necessary. This test is used for clinical purposes. It should not be regarded as investigational or for research. . 01 Pathologist provided ICD-10: R59.1 . 01 CPT . 432325, 129964, G37059, C09487, 011285, S50228 Performed at: 01 [facility] [address] [place] [address] [id number] MD Vamshi Whitney MD Phone: [phone]
[2021-07-05] MEDS: LACTATED RINGERS 1,000 ML 100 ML IV ×2 (12:00→14:41)
--- NOTE | 2021-07-05 13:34 | PM.PREOP ---
Pre-operative Note Interval Note History & Physical reviewed/Exam performed by Physician: Yes Changes to H&P: No
[2021-07-05] MEDS: CEFAZOLIN 1 GM VIAL 2 GM IV (14:22)
--- NOTE | 2021-07-05 14:25 | SUR.OPER ---
Supine on padded OR bed, head on pillow, arms secured on padded arm boards at <90 degrees abduction, legs uncrossed, safety belt at thigh, tape over blanket over lower legs.
[2021-07-05] MEDS: BUPIVACAINE 0.25% (PF) VIAL 30 ML INJ (14:30)
--- NOTE | 2021-07-05 15:05 | PM.OP.1 ---
Operative Date/Time/Diagnoses Date of procedure: 07/05/21 Time of procedure: 15:06 Pre-op diagnosis: lymphadenopathy Post-op diagnosis: same Procedure & Clinicians Procedure: excisional biopsy of left inguinal lymph node Same procedure as scheduled: Yes Indications: lymphadenopathy Surgeon: Tyrone Zamora Click Yes if Unassisted: Yes Operative Notes Findings: bulky left groin lymphadenopathy Specimen(s): other (left groin lymph node) Estimated Blood Loss (mL): 10 Procedure in detail: Patient was brought to the operating room placed supine on the table. Bilateral lower extremity compression devices were applied. She received Ancef prior to skin incision. Anesthesia was induced she was intubated with an LMA. Prep and drape in sterile fashion. Time-out performed. Incision in the left groin was made over the palpable lymphadenopathy. Subcutaneous tissues were divided. A bulky lymph node was encountered. It was dissected out circumferentially. The lymph node was excised and the stalk of the lymph node was ligated with suture ligated with silk. Hemostasis achieved. Subcutaneous tissue reapproximated with Vicryl skin closed with Monocryl followed by Dermabond. Patient was extubated and returned to the recovery room in stable condition. Complications: none Post-operative Condition: stable Disposition: same day surgery
[2021-07-05] MEDS: OXYCODONE IR 5 MG TABLET PO (15:20)
== END 2021-07-05 16:00 | disposition home or self-care (01) ==
PROVIDERS: PCP Internal Medicine; Referring Provider Surgery; Visit Provider Surgery
PROC: (CPT 38531; principal; 2021-07-05 12:15)
DX: R59.1 Generalized enlarged lymph nodes (principal); Z85.3 Personal history of malignant neoplasm of breast; I10 Essential (primary) hypertension; I48.0 Paroxysmal atrial fibrillation; I44.7 Left bundle-branch block, unspecified
CPT/HCPCS: 38531; 82962; J0690; J2704; J3010

== ENCOUNTER → 2021-07-14 15:36 | Outpatient (CLI) | payer MEDICARE, SELFPAY ==
[2021-06-18 22:49] VITALS: BMI 25.1
--- NOTE | 2021-07-14 | DI.MG.S_ITS ---
UNILATERAL RIGHT DIGITAL SCREENING MAMMOGRAM 3D/2D WITH CAD POST MASTECTOMY: 07/14/2021 CLINICAL: Routine screening. Personal history of left breast cancer. Comparison is made to exams dated: 06/28/2020 mammogram, 05/26/2020 mammogram, and 04/11/2019 mammogram - Located [facility]. There are scattered fibroglandular elements in right breast. Current study was also evaluated with a Computer Aided Detection (CAD) system. No significant masses, calcifications, or other findings are seen in the breast. There has been no significant interval change. IMPRESSION: NEGATIVE There is no mammographic evidence of malignancy. A 1 year screening mammogram is recommended. This exam was interpreted at Station ID: [id number]. NOTE: For mammograms, a report in lay terms will be sent to the patient. Approximately 15% of breast malignancies will not be visualized mammographically. In the management of a palpable breast mass, a negative mammogram must not discourage biopsy of a clinically suspicious lesion. Electronically Signed By: Chris Medina M.D., jr/ravinder:07/14/2021 16:09:58 letter sent: Normal Exam ACR BI-RADS Category 1: Negative 3341F
== END ==
PROVIDERS: PCP Internal Medicine; Referring Provider Internal Medicine; Visit Provider Internal Medicine
DX: Z12.31 Encounter for screening mammogram for malignant neoplasm of breast (principal); Z85.3 Personal history of malignant neoplasm of breast
CPT/HCPCS: 77063; 77067

== ENCOUNTER → 2021-09-29 14:44 | Outpatient (CLI) | payer MEDICARE, SELFPAY ==
[2021-06-18 22:49] VITALS: BMI 25.1
== END ==
PROVIDERS: PCP Internal Medicine; Referring Provider Internal Medicine; Visit Provider Internal Medicine
DX: M81.0 Age-related osteoporosis without current pathological fracture (principal); Z78.0 Asymptomatic menopausal state; E07.9 Disorder of thyroid, unspecified; Z85.3 Personal history of malignant neoplasm of breast; Z82.62 Family history of osteoporosis; Z90.722 Acquired absence of ovaries, bilateral
CPT/HCPCS: 77080

== ENCOUNTER → 2022-01-12 10:19 | Outpatient (CLI) | payer MEDICARE, SELFPAY ==
[2021-06-18 22:49] VITALS: BMI 25.1
[2022-01-12 10:43] LABS: COVID19 -Nasal RAPID Negative (Negative)
== END ==
PROVIDERS: PCP Internal Medicine; Visit Provider Family Medicine Sleep Medicine
DX: Z20.822 Contact with and (suspected) exposure to COVID-19 (principal)
CPT/HCPCS: 87635

== ENCOUNTER → 2022-01-12 10:31 | Outpatient (CLI) | payer MEDICARE, SELFPAY ==
[2021-06-18 22:49] VITALS: BMI 25.1
--- NOTE | 2022-01-12 | DI.NM.S_ITS ---
PROCEDURE: NM SHEBA PERF SPECT R&S PHARM Rest and pharmacological stress myocardial perfusion SPECT with gated imaging and ejection fraction RADIOPHARMACEUTICAL: 26.0 mCi Tc-99m tetrafosmin IV at rest and 26.4 mCi Tc-99m tetrafosmin IV at peak effect of pharmacological stress. [id number] was performed. INDICATIONS: Unspecified atrial fibrillation TECHNIQUE: Radiopharmaceutical was injected at peak stress test, and also at rest. SPECT images were obtained. SPECT myocardial perfusion images were displayed in short axis, horizontal long axis, and vertical long axis views. Gated images were reviewed using [employer] software. COMPARISON: None. CARDIAC STRESS: A pharmacologic stress test was performed under the supervision of an attending staff, using an infusion of lexiscan 0.4mg IV X1. Hemodynamic data: There is normal blood pressure and heart rate response to pharmacologic stress. Symptoms: The patient denied anginal chest pain. Aminophylline: none EKG: Resting ECG showed sinus rhythm with LBBB. No diagnostic changes of ischemia; occasional PACs and PVCs noted. FINDINGS: Raw data: There is good myocardial uptake of radiotracer. No significant motion artifacts. Left ventricle function: Gated images demonstrate normal left ventricular wall thickening. No segmental wall motion abnormalities. No transient ischemic dilation; TID is 0.75 (normal less than 1.3). Left ventricle resting end diastolic volume is 96 mL. Left ventricle stress ejection fraction is 88%; normal range is above 45%. Myocardial perfusion: There is normal distribution of activity in the right and left ventricular myocardium. No fixed or reversible perfusion defects. IMPRESSION: Low risk, pharmaceutical nuclear stress test. 1) No perfusion evidence of ischemia or infarction. 2) Normal left ventricular size, wall motion, and systolic function (EF post stress 88%). 3) ECG non-diagnostic due to baseline LBBB. 4) No angina during the study. 5) No prior nuclear stress test available for comparison. Dictated by: Mariel Michele MD on 01/13/2022 at 13:07 Approved by: Mariel Michele MD on 01/13/2022 at 13:10
== END ==
PROVIDERS: PCP Internal Medicine; Referring Provider Internal Medicine Cardiovascular Disease; Visit Provider Internal Medicine Cardiovascular Disease
DX: I48.0 Paroxysmal atrial fibrillation (principal); I44.7 Left bundle-branch block, unspecified; Z20.822 Contact with and (suspected) exposure to COVID-19
CPT/HCPCS: 78452; 87635; 93017; C9803; A9502; J2785

== ENCOUNTER → 2022-08-02 14:09 | Outpatient (CLI) | payer MEDICARE, SELFPAY ==
[2021-06-18 22:49] VITALS: BMI 25.1
--- NOTE | 2022-08-02 14:13 | DI.MG.S_ITS ---
UNILATERAL RIGHT DIGITAL SCREENING MAMMOGRAM 3D/2D WITH CAD POST MASTECTOMY: 08/02/2022 CLINICAL: Routine screening. Personal history of left breast cancer. Comparison is made to exams dated: 07/14/2021 mammogram, 06/28/2020 mammogram, 05/26/2020 mammogram, 04/11/2019 mammogram, and 06/28/2020 [facility]. There are scattered areas of fibroglandular density in the right breast (category b / 25%-50% glandular tissue). Current study was also evaluated with a Computer Aided Detection (CAD) system. No significant masses, calcifications, or other findings are seen in the breast. There has been no significant interval change. IMPRESSION: NEGATIVE There is no mammographic evidence of malignancy. A 1 year screening mammogram is recommended. This exam was interpreted at Station ID: [id number]. NOTE: For mammograms, a report in lay terms will be sent to the patient. Approximately 15% of breast malignancies will not be visualized mammographically. In the management of a palpable breast mass, a negative mammogram must not discourage biopsy of a clinically suspicious lesion. Electronically Signed By: James dunlap/ravinder:08/02/2022 15:58:06 letter sent: Normal Exam ACR BI-RADS Category 1: Negative [id number]
== END ==
PROVIDERS: PCP Internal Medicine; Referring Provider Internal Medicine; Visit Provider Internal Medicine
DX: Z12.31 Encounter for screening mammogram for malignant neoplasm of breast (principal); Z85.3 Personal history of malignant neoplasm of breast
CPT/HCPCS: 77063; 77067

== ENCOUNTER 2022-08-15 10:27 | Emergency (ER) | payer MEDICARE, SELFPAY ==
[2021-06-18 22:49] VITALS: BMI 25.1
[2022-08-15] VITALS (10 sets, daily range): BP systolic 143–176; BP diastolic 63–84; PULSE 51–76; RESP 14–23; TEMP 36.4; O2SAT 97–99
--- NOTE | 2022-08-15 10:47 | DI.RAD.S_ITS ---
PROCEDURE: XR CHEST 1V INDICATIONS: chest pain TECHNIQUE: One view of the chest was acquired. COMPARISON: [facility], CR, XR CHEST 1V, 06/18/2021, 18:20. [facility], CR, XR CHEST 2V, 06/26/2018, 10:12. FINDINGS: Surgical changes and devices: None. Lungs and pleura: Lungs are clear. No pleural effusions or pneumothorax. Mediastinum: Mediastinal contours appear normal. Heart size is prominent. Bones and chest wall: No suspicious bony lesions. Overlying soft tissues appear unremarkable. IMPRESSION: No acute cardiopulmonary abnormality. Dictated by: Rolo West M.D. on 08/15/2022 at 11:26 Approved by: Rolo West M.D. on 08/15/2022 at 11:28
[2022-08-15 10:55] LABS: Add Manual Diff / Slide Review NO; Basophils Absolute Auto 0 /uL (0-100); Basophils Percent Auto 0.8 % (0-2); Eosinophils Absolute Auto 100 /uL (0-450); Eosinophils Percent Auto 2.3 % (2-4); Hematocrit 36.7 % (36-46); Hemoglobin 13.2 g/dL (12.0-16.0); Lymphocytes Absolute Auto 1200 /uL (1100-4500); Lymphocytes Percent Auto 29.5 % (25-40); Mean Corpuscular HGB Conc 36.1 % (30-36); Mean Corpuscular Hemoglobin 35.7 PG (26-34); Mean Corpuscular Volume 98.9 fL (80-100); Monocytes Absolute Auto 400 /uL (0-900); Monocytes Percent Auto 9.9 % (3-14); Neutrophils Absolute Auto 2400 /uL (1500-7000); Neutrophils Percent Auto 57.5 % (50-75); Platelet Count 205 X10^3/uL (150-400); Red Blood Cell Count 3.71 X10^6/uL (4.0-5.2); Red Cell Distribution Width 13.2 % (11.6-14.8); White Blood Cell Count 4.1 X10^3/uL (4.5-11.0)
[2022-08-15 11:01] LABS: INR 1.2 (0.9-1.3); Prothrombin Time 13.3 SECONDS (10.1-12.7)
[2022-08-15 11:03] LABS: PTT Partial Thromboplastin Tim 33 SECONDS (26-36)
[2022-08-15 11:06] LABS: Alanine Aminotransferase 41 IU/L (<35); Albumin 4.2 g/dL (3.5-5.0); Albumin Globulin Ratio 1.2 (1.0-2.8); Alkaline Phosphatase 100 U/L (38-126); Aspartate Aminotransferase 46 IU/L (14-36); BUN Creatinine Ratio 36.1 (6-22); Bilirubin Total 0.4 mg/dL (0.2-1.3); Blood Urea Nitrogen 22 mg/dL (7-17); Carbon Dioxide 25 mmol/L (22-32); Chloride 103 mmol/L (98-107); Creatine Kinase 65 U/L (30-135); Estimated Glomerular Filt Rate > 60 mL/min (>60); Globulin 3.5 g/dL (1.7-4.1); Glucose 131 mg/dL (80-110); HEMOLYSIS < 15 (0-50); Lipase 61 U/L (23-300); Potassium 3.8 mmol/L (3.4-5.1); Sodium 137 mmol/L (137-145); Total Protein 7.7 g/dL (6.3-8.2)
--- NOTE | 2022-08-15 11:11 | ED_ITS ---
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 She says she was sitting at her computer for awhile she felt dizzy lightheaded and passed out. She ate to prunes she normally has 3 prunes and then eats breakfast. She denies chest pain palp itations or shortness of breath. Related Data Home Medications Medication Instructions Recorded Confirmed cyclosporine 0.05 % eye drops in a 1 drp [facility] ##0 03/05/13 08/03/22 dropperette (Restasis) calcium carbonate 600 mg calcium 600 mg PO BID 04/12/18 08/03/22 (1,500 mg) tablet famotidine 10 mg tablet (Pepcid AC) 10 mg PO PRN PRN Acid Reflux 04/12/18 08/03/22 ferrous gluconate 324 mg (36 mg 324 mg PO DAILY 04/12/18 08/03/22 iron) tablet nystatin 100,000 unit/gram topical 1 applictn topical BID PRN Rash 04/12/18 08/03/22 cream fexofenadine 180 mg tablet 180 mg PO DAILY 05/14/18 08/03/22 (Corina Allergy) methylcellulose (laxative) 500 mg 500 mg PO DAILY 05/14/18 08/03/22 tablet (Citrucel) psyllium husk 0.4 gram capsule 0.4 g PO DAILY PRN Constipation 05/14/18 08/03/22 (Metamucil) apixaban 2.5 mg tablet (Eliquis) 2.5 mg PO BID 05/10/21 08/03/22 docusate sodium 100 mg capsule 100 mg PO DAILY 06/18/21 08/03/22 (Colace) metoprolol succinate 25 mg 12.5 mg PO DAILY 06/27/21 08/03/22 tablet,extended release 24 hr acetaminophen 500 mg tablet 500 mg PO Q6H PRN 12/01/21 08/03/22 (Tylenol Extra Strength) insulin syringe-needle U-100 1 mL #10 ea 12/01/21 08/03/22 30 gauge x 1/2 (BD Insulin Syringe Ultra-Fine) cholecalciferol (vitamin D3) 50 50 mcg PO DAILY 02/16/22 08/03/22 mcg (2,000 unit) capsule multivitamin 1 tab PO DAILY 02/16/22 08/03/22 omega 9-fip-jrs-fish oil 1,200 mg 1 cap PO DAILY 02/16/22 08/03/22 (144 mg-216 mg) capsule (Fish Oil) Previous Rx's Medication Instructions Recorded cyanocobalamin (vitamin B-12) 1,000 mcg IM Q2W #6 mL 12/01/21 1,000 mcg/mL injection solution levothyroxine 50 mcg tablet See Rx Instructions .Route 05/03/22 (Levoxyl) .COMPLEX #120 tabs methocarbamol 500 mg tablet 500 mg PO TID PRN spasms #20 tabs 07/14/22 flunisolide 25 mcg (0.025 %) nasal 1 spray intranasal DAILY #25 mL 07/26/22 spray Levoxyl 75 mcg tablet 75 mcg PO .every other day #90 tabs 07/31/22 (levothyroxine) Allergies Allergy/AdvReac Type Severity Reaction Status Date / Time ciprofloxacin [From CIPRO] Allergy Mild itching Verified 08/03/22 16:04 atorvastatin [From Lipitor] Allergy muscles Verified 08/03/22 16:04 stop working Sulfa (Sulfonamide AdvReac Severe n\v Verified 08/03/22 16:04 Antibiotics) [SULFA (SULFONAMIDE ANTIBIOTICS)] adhesive [ADHESIVE] AdvReac Mild some Verified 08/03/22 16:04 tapes, redness and itching hydroxyzine [From Vistaril] AdvReac bad Verified 08/03/22 16:04 muscle spasms levothyroxine AdvReac colitis Verified 08/03/22 16:04 and diarrhea Review of Systems Review of Systems Narrative: GENERAL: Denies chills, fatigue, malaise, fever, sweats, travel HEENT: Denies sinus pain, ear pain, sore throat, difficulty swallowing, neck pain RESPIRATORY: Denies dyspnea, cough, wheezing, hemoptysis, sputum. CARDIOVASCULAR: Denies chest pain, palpitations, orthopnea, edema GASTROINTESTINAL: Denies nausea, vomiting, abdominal pain, diarrhea, constipation, melena. : Denies dysuria, frequency, incontinence, hematuria, urinary retention, flank pain. MUSCULOSKELETAL: Denies weakness, joint pain, or bony pain SKIN: No rash, no erythema, no pruritus NEUROLOGIC: See HPI PSYCHIATRIC: No concerning psychosocial issues. 12 point review of systems is negative except for those stated above and HPI Patient History Medical History Acquired hypothyroidism Anemia Angioimmunoblastic T-cell lymphoma (~2020) Ankle pain Anxiety (~1939) Aortic valve sclerosis (~2018) B12 deficiency Breast cancer Carpal tunnel syndrome of right wrist (~1987) Cataracts, bilateral (~2006) Chicken pox (~1942) Chlamydia (~1982) Chronic back pain Colitis (~2015) Colon polyps Diverticular disease (~2017) Do not resuscitate Endometriosis (~1971) Essential hypertension Essential hypertension with goal blood pressure less than 130/85 Foot pain (~2019) Ganglion, right wrist Generalized anxiety disorder Heavy menstrual period (~1948) Hiatal hernia History of endometriosis History of left breast cancer History of left breast cancer History of recurrent ear infection History of trigger finger History of urinary incontinence (~2009) Hypothyroidism Inguinal lymphadenopathy Internal hemorrhoid (~1999) Left bundle branch block Lymphedema (~1987) Lymphedema of arm Measles (~1943) Mitral valve prolapse (~12/13/18) Mixed hyperlipidemia Mumps (~1942) Osteoporosis (~09/29/21) Painful menstrual periods Paroxysmal atrial fibrillation Paroxysmal atrial fibrillation Peripheral neuropathy Plantar warts (~1947) Primary osteoarthritis involving multiple joints Recurrent sinusitis Rubella (~1941) Seizure (~06/18/21) Skin cancer Spine pain, lumbar (~07/2009) Tingling of face Tinnitus Voice disorder (~2017) Surgical History H/O hysterectomy for benign disease (~1971) History of 3 sections History of appendectomy History of arthroscopic knee surgery History of biopsy (~03/10/21) History of breast biopsy History of carpal tunnel release History of cataract removal with insertion of prosthetic lens (~2006) History of colonoscopy History of eye surgery (~1989) History of lymph node biopsy (~05/31/21) History of modified radical mastectomy (~1987) History of surgical removal of skin lesion History of tonsillectomy (~1943) History of total bilateral knee replacement (~01/19/14) Family History Father Heart disease Hypertension Stroke Mother Appendicitis Brother Heart disease Hypertension Hyperlipidemia Arthritis Grandmother Allergies Sister Uterine cancer Social History marital status: household members: spouse Smoking Status: Never smoker alcohol intake: current Smoking Status: Never smoker Substance Use Type: does not use Exam Initial Vital Signs Initial Vital Signs: Vital Signs Temperature 97.6 F 08/15/22 10:40 Pulse Rate 67 08/15/22 10:40 Respiratory Rate 20 08/15/22 10:40 Blood Pressure 174/81 H 08/15/22 10:40 Pulse Oximetry 99 08/15/22 10:40 Oxygen Delivery Method 08/15/22 10:40 GENERAL: Alert very pleasant 87-year-old female HEENT: Head atraumatic,EOMI, pupils reactive, face symmetric, moist mucous membranes CARDIOVASCULAR: Regular rate and rhythm without murmurs, rubs or gallops. RESPIRATORY: Breath sounds equal bilaterally, no wheezes rales or rhonchi. ABDOMEN: Soft, nontender. Normoactive bowel sounds all 4 quadrants. No guarding or rebound. EXTREMITIES: Normal range of motion, no clubbing or edema. Neurovascularly intact NEUROLOGICAL: Alert and oriented x4.Normal gait and speech. Cranial nerves II through XII grossly intact. Good [id number], good [id number], strength equal bilaterally, no dysarthria or aphasia, sensation in tact to soft touch bilaterally, no visual changes, no facial droop SKIN: Warm, dry, no laceration, no petechiae, no rashes or lesions. Course Orders Ordered: ED Orders 08/15/22 10:50 COVID19 -Nasal RAPID/Pre-Proc Stat 08/15/22 13:26 CT head/brain wo con Stat Vital Signs Vital signs: Vital Signs - 8 hr 08/15/22 12:04 08/15/22 12:30 08/15/22 12:31 Pulse Rate 51 L 54 L Respiratory Rate 17 18 Blood Pressure 176/76 H 168/74 H Pulse Oximetry 99 97 Oxygen Delivery Method Room Air 08/15/22 12:31 08/15/22 13:07 08/15/22 13:10 Pulse Rate 52 L 65 Respiratory Rate 19 20 Blood Pressure 143/63 H Pulse Oximetry 97 Oxygen Delivery Method 08/15/22 13:10 08/15/22 13:39 08/15/22 13:40 Pulse Rate 76 64 66 Respiratory Rate 17 21 16 Blood Pressure Pulse Oximetry 98 97 98 Oxygen Delivery Method 08/15/22 13:40 08/15/22 14:00 08/15/22 14:01 Pulse Rate 52 L Respiratory Rate 14 Blood Pressure 150/84 H 143/66 H Pulse Oximetry 98 Oxygen Delivery Method 08/15/22 14:01 Pulse Rate 57 L Respiratory Rate 23 Blood Pressure Pulse Oximetry 98 Oxygen Delivery Method MDM - Syncope Lab Data Result diagrams: 08/15/22 10:45 08/15/22 10:45 Labs: Lab Results 08/15/22 08/15/22 08/15/22 Range/Units 10:45 10:45 10:45 WBC 4.1 L (4.5-11.0) X10^3/uL RBC 3.71 L (4.0-5.2) X10^6/uL Hgb 13.2 (12.0-16.0) g/dL Hct 36.7 (36-46) % MCV 98.9 (80-100) fL MCH 35.7 H (26-34) PG MCHC 36.1 H (30-36) % RDW 13.2 (11.6-14.8) % Plt Count 205 (150-400) X10^3/uL Neut % (Auto) 57.5 (50-75) % Lymph % (Auto) 29.5 (25-40) % [place] % (Auto) 9.9 (3-14) % Eos % (Auto) 2.3 (2-4) % Baso % (Auto) 0.8 (0-2) % Neut # (Auto) 2400 (1613-0170) /uL Lymph # (Auto) 1200 (9771-1069) /uL [place] # (Auto) 400 (0-900) /uL Eos # (Auto) 100 (0-450) /uL Baso # (Auto) 0 (0-100) /uL PT 13.3 H (10.1-12.7) SECONDS INR 1.2 (0.9-1.3) APTT 33 (26-36) SECONDS Sodium 137 (137-145) mmol/L Potassium 3.8 (3.4-5.1) mmol/L Chloride 103 (98-107) mmol/L Carbon Dioxide 25 (22-32) mmol/L BUN 22 H (7-17) mg/dL Creatinine 0.61 (0.52-1.04) mg/dL Estimated GFR > 60 (>60) mL/min BUN/Creatinine Ratio 36.1 H (6-22) Glucose 131 H (80-110) mg/dL Calcium 9.0 (8.4-10.2) mg/dL Magnesium 2.0 (1.6-2.3) mg/dL Total Bilirubin 0.4 (0.2-1.3) mg/dL AST 46 H (14-36) IU/L ALT 41 H (<35) IU/L Alkaline Phosphatase 100 (38-126) U/L Total Creatine Kinase 65 (30-135) U/L CK-MB (CK-2) TNP CK-MB (CK-2) Rel Index TNP Troponin I < 0.012 (0.01-0.034) ng/mL Total Protein 7.7 (6.3-8.2) g/dL Albumin 4.2 (3.5-5.0) g/dL Globulin 3.5 (1.7-4.1) g/dL Albumin/Globulin Ratio 1.2 (1.0-2.8) Triglycerides (35-150) mg/dL Cholesterol (140-199) mg/dL LDL Cholesterol, Calc (<100) mg/dL HDL Cholesterol (40-60) mg/dL Lipase 61 (23-300) U/L TSH (0.47-4.68) uIU/mL SARS-CoV-2 (PCR) (Negative) 08/15/22 08/15/22 08/15/22 Range/Units 10:45 10:45 10:50 WBC (4.5-11.0) X10^3/uL RBC (4.0-5.2) X10^6/uL Hgb (12.0-16.0) g/dL Hct (36-46) % MCV (80-100) fL MCH (26-34) PG MCHC (30-36) % RDW (11.6-14.8) % Plt Count (150-400) X10^3/uL Neut % (Auto) (50-75) % Lymph % (Auto) (25-40) % [place] % (Auto) (3-14) % Eos % (Auto) (2-4) % Baso % (Auto) (0-2) % Neut # (Auto) (2587-4471) /uL Lymph # (Auto) (7650-0630) /uL [place] # (Auto) (0-900) /uL Eos # (Auto) (0-450) /uL Baso # (Auto) (0-100) /uL PT (10.1-12.7) SECONDS INR (0.9-1.3) APTT (26-36) SECONDS Sodium (137-145) mmol/L Potassium (3.4-5.1) mmol/L Chloride (98-107) mmol/L Carbon Dioxide (22-32) mmol/L BUN (7-17) mg/dL Creatinine (0.52-1.04) mg/dL Estimated GFR (>60) mL/min BUN/Creatinine Ratio (6-22) Glucose (80-110) mg/dL Calcium (8.4-10.2) mg/dL Magnesium (1.6-2.3) mg/dL Total Bilirubin (0.2-1.3) mg/dL AST (14-36) IU/L ALT (<35) IU/L Alkaline Phosphatase (38-126) U/L Total Creatine Kinase (30-135) U/L CK-MB (CK-2) CK-MB (CK-2) Rel Index Troponin I (0.01-0.034) ng/mL Total Protein (6.3-8.2) g/dL Albumin (3.5-5.0) g/dL Globulin (1.7-4.1) g/dL Albumin/Globulin Ratio (1.0-2.8) Triglycerides 44 (35-150) mg/dL Cholesterol 205 H (140-199) mg/dL LDL Cholesterol, Calc 116 H (<100) mg/dL HDL Cholesterol 80 H (40-60) mg/dL Lipase (23-300) U/L TSH 1.43 (0.47-4.68) uIU/mL SARS-CoV-2 (PCR) Negative (Negative) Urine Dip Bedside Urine Glucose Negative Bedside Urine Bilirubin - Negative Bedside Urine Ketone - Negative Urine Specific Arnold 1.010 Bedside Urine Occult Blood - Negative Bedside Urine pH 7.5 Bedside Urine Protein - Negative Bedside Urine Urobilinogen - Negative Bedside Urine Nitrite - Negative Bedside Urine Leukocytes - Negative Esterase Imaging Data Chest x-ray: Radiologist's Impression: XRay Report Signed Patient: Paula Ji MR#: [id number] : 1935 Acct:[id number] Age/Sex: 87 / F Date of Service: 08/15/22 Loc: ED Accession Number: [id number] ?? Procedure: XR chest 1V Ordering Provider: Lizzie Avelar D.O. PROCEDURE:? XR CHEST 1V ? INDICATIONS:? chest pain ? TECHNIQUE:? One view of the chest was acquired.? ? COMPARISON:? [facility], CR, XR CHEST 1V, 06/18/2021, 18:20.? [facility], CR, XR CHEST 2V, 06/26/2018, 10:12. ? FINDINGS:? ? Surgical changes and devices:? None.? ? Lungs and pleura:? Lungs are clear.? No pleural effusions or pneumothorax.? ? Mediastinum:? Mediastinal contours appear normal.? Heart size is prominent.? ? Bones and chest wall:? No suspicious bony lesions.? Overlying soft tissues appear unremarkable.? ? IMPRESSION:? No acute cardiopulmonary abnormality. ? ? ? Dictated by: Rolo West M.D. on 08/15/2022 at 11:26 ? ? Approved by: Rolo West M.D. on 08/15/2022 at 11:28 ? CT scan - head: Radiologist's Impression: CHERELLE Pierce [id number] CT Scan Report Signed Patient: Paula Ji MR#: [id number] : 1935 Acct:[id number] Age/Sex: 87 / F Date of Service: 08/15/22 Loc: ED Accession Number: [id number] ?? Procedure: CT head/brain wo con Ordering Provider: Lizzie Avelar D.O. PROCEDURE:? CT HEAD/BRAIN WO CON ? INDICATIONS:? syncope on eliquis ? TECHNIQUE:? Noncontrast 4.5 mm thick angled axial sections acquired from the foramen magnum to the vertex, with coronal and sagittal reformats.? For radiation dose reduction, the following was used:? automated exposure control, adjustment of mA and/or kV according to patient size.? ? COMPARISON:? None. ? FINDINGS:? Image quality:? Excellent.? ? CSF spaces:? Basal cisterns are patent.? No extra-axial fluid collections.? The ventricles are symmetric in size and shape.? ? Brain:? No intracranial bleeds or masses.? There is cerebral volume loss for age, with resultant ventricular and sulcal prominence.? There are periventricular and deep white matter chronic small vessel ischemic changes.? There is intracranial internal carotid artery atherosclerosis.? ? Skull and face:? Calvarium and visualized facial bones appear intact, without suspicious lesions.? ? Sinuses:? Visualized sinuses and mastoids are clear.? ? IMPRESSION:? No acute intracranial disease process. ? ? Dictated by: Bethany Fry MD, PhD on 08/15/2022 at 13:53 ? ? ECG Data Interpretation: Normal sinus rhythm rate 59 [place] interval 194 QRS [address] changes no T- wave inversions left bundle-branch block noted. Patient states that she is a known left bundle-branch block MDM Narrative Medical decision making narrative: Patient had a brief syncopal episode while at a computer screen. Blood work is overall reassuring. She ambulated to the restroom without any difficulty. [facility] Head CT is negative. At this time patient is ambulatory in the ED. She is not requiring any further intervention or workup. She is not septic. At this time no further workup is indicated. Discharge Plan Departure Patient Disposition: Home Clinical Impression: Syncope Instructions: DI for Syncope in Adults (Fainting) Activity Restrictions/Additional Instructions: *You have been diagnosed with syncope *What to do: At this time blood work and head CT are overall reassuring *Continue to take medications as directed *Follow up with your primary care provider in 2-3 days or call [phone] *Return to ER if you should have recurrent episode of passing out chest pain persistent vomiting or any new, worsening or concerning symptoms Prescriptions: No Action Restasis 1 EACH dropperette 1 drp OPHTH QAM Qty: 0 levothyroxine [Levoxyl] 50 mcg tablet See Rx Instructions .ROUTE .COMPLEX Qty: 120 3RF Dose Instruction: TAKE BY ALTERNATING 50MCG AND 75MCG BY MOUTH ONCE EVERY OTHER DAY Rx Instructions: TAKE BY ALTERNATING 50MCG AND 75MCG BY MOUTH ONCE EVERY OTHER DAY flunisolide 25 mcg (0.025 %) spray,non-aerosol 1 spray intranasal DAILY Qty: 25 5RF levothyroxine [Levoxyl] 75 mcg tablet 75 mcg PO .every other day Qty: 90 0RF Rx Instructions: 75mcg every other day; brand name only. (DME) insulin syringe-needle U-100 [BD Insulin Syringe Ultra-Fine] 1 mL 30 gauge x 1/2 syringe See Rx Instructions .ROUTE .MEDSUPPLY Qty: 10 Label Comments: USE ONE SYRINGE TO INJECT INTRAMUSCULARLY EVERY TWO WEEKS. Rx Instructions: As directed acetaminophen [Tylenol Extra Strength] 500 mg tablet 500 mg PO Q6H PRN cyanocobalamin (vitamin B-12) 1,000 mcg/mL solution 1,000 mcg IM Q2W Qty: 6 3RF cholecalciferol (vitamin D3) 50 mcg (2,000 unit) capsule 50 mcg PO DAILY multivitamin Tablet 1 tab PO DAILY omega 5-nws-ogh-fish oil [Fish Oil] 1,200 (144-216) mg capsule 1 cap PO DAILY methocarbamol 500 mg tablet 500 mg PO TID PRN (Reason: spasms) Qty: 20 1RF ferrous gluconate 324 mg (36 mg iron) tablet 324 mg PO DAILY calcium carbonate 600 mg calcium (1,500 mg) tablet 600 mg PO BID famotidine [Pepcid AC] 10 mg tablet 10 mg PO PRN PRN (Reason: Acid Reflux) nystatin 100,000 unit/gram cream 1 applictn TOP BID PRN (Reason: Rash) metoprolol succinate 25 mg tablet extended release 24 hr 12.5 mg PO DAILY Eliquis 2.5 mg tablet 2.5 mg PO BID Label Comments: TAKE ONE TABLET BY MOUTH TWICE DAILY fexofenadine [Corina Allergy] 180 mg Tablet 180 mg PO DAILY Citrucel 500 mg Tablet 500 mg PO DAILY psyllium husk [Metamucil] 0.4 gram Capsule 0.4 g PO DAILY PRN (Reason: Constipation) Label Comments: TAKES 2 TABS docusate sodium [Colace] 100 mg Capsule 100 mg PO DAILY Referrals: Rob Ferreira MD [Primary Care Provider] - Visit Report Forms: Patient Portal/API
[2022-08-15 11:17] LABS: Troponin I < 0.012 ng/mL (0.01-0.034)
[2022-08-15 11:27] LABS: Cholesterol 205 mg/dL (140-199); HDL Cholesterol 80 mg/dL (40-60); LDL Cholesterol Calculated 116 mg/dL (<100); Triglycerides 44 mg/dL (35-150)
[2022-08-15 11:58] LABS: TSH w/ Reflex to FT4 1.43 uIU/mL (0.47-4.68)
[2022-08-15 12:00] LABS: COVID19 -Nasal RAPID Negative (Negative)
--- NOTE | 2022-08-15 13:26 | DI.CT.S_ITS ---
PROCEDURE: CT HEAD/BRAIN WO CON INDICATIONS: syncope on eliquis TECHNIQUE: Noncontrast 4.5 mm thick angled axial sections acquired from the foramen magnum to the vertex, with coronal and sagittal reformats. For radiation dose reduction, the following was used: automated exposure control, adjustment of mA and/or kV according to patient size. COMPARISON: None. FINDINGS: Image quality: Excellent. CSF spaces: Basal cisterns are patent. No extra-axial fluid collections. The ventricles are symmetric in size and shape. Brain: No intracranial bleeds or masses. There is cerebral volume loss for age, with resultant ventricular and sulcal prominence. There are periventricular and deep white matter chronic small vessel ischemic changes. There is intracranial internal carotid artery atherosclerosis. Skull and face: Calvarium and visualized facial bones appear intact, without suspicious lesions. Sinuses: Visualized sinuses and mastoids are clear. IMPRESSION: No acute intracranial disease process. Dictated by: Bethany Fry MD, PhD on 08/15/2022 at 13:53 Approved by: Bethany Fry MD, PhD on 08/15/2022 at 13:55
== END 2022-08-15 14:20 | disposition home or self-care (01) ==
PROVIDERS: Emergency Provider Emergency Medicine; PCP Internal Medicine
DX: R55 Syncope and collapse (principal); I44.7 Left bundle-branch block, unspecified; Z20.822 Contact with and (suspected) exposure to COVID-19; Z79.01 Long term (current) use of anticoagulants
CPT/HCPCS: 70450; 71045; 80053; 80061; 81003; 82550; 83690; 83735; 84443; 84484; 85025; 85610; 85730; 87635; 93005; 93010; 99284; C9803

== ENCOUNTER 2022-10-29 09:55 | Emergency (ER) | payer MEDICARE, SELFPAY ==
[2021-06-18 22:49] VITALS: BMI 25.1
[2022-10-29] VITALS (37 sets, daily range): BP systolic 111–175; BP diastolic 22–90; PULSE 24–171; RESP 16–39; TEMP 36.9; O2SAT 93–99; BMI 23.1
--- NOTE | 2022-10-29 10:14 | DI.RAD.S_ITS ---
PROCEDURE: XR CHEST 1V INDICATIONS: chest pain TECHNIQUE: One view of the chest was acquired. COMPARISON: [facility], CR, XR CHEST 1V, 08/15/2022, 10:57. FINDINGS: Surgical changes and devices: None. Lungs and pleura: Lungs are clear. No pleural effusions or pneumothorax. Mediastinum: Mediastinal contours appear normal. Heart size is normal. Bones and chest wall: No suspicious bony lesions. Overlying soft tissues appear unremarkable. IMPRESSION: No acute cardiopulmonary findings Approved by: Percy Ho M.D. on 10/29/2022 at 9:41
[2022-10-29 10:23] LABS: INR 1.1 (0.9-1.3); Prothrombin Time 12.9 SECONDS (10.1-12.7)
[2022-10-29 10:26] LABS: PTT Partial Thromboplastin Tim 33 SECONDS (26-36)
[2022-10-29 10:27] LABS: Alanine Aminotransferase 80 IU/L (<35); Albumin 4.2 g/dL (3.5-5.0); Albumin Globulin Ratio 1.2 (1.0-2.8); Alkaline Phosphatase 118 U/L (38-126); Aspartate Aminotransferase 90 IU/L (14-36); BUN Creatinine Ratio 37.3 (6-22); Bilirubin Total 0.4 mg/dL (0.2-1.3); Blood Urea Nitrogen 25 mg/dL (7-17); Calcium 9.1 mg/dL (8.4-10.2); Carbon Dioxide 24 mmol/L (22-32); Chloride 100 mmol/L (98-107); Creatine Kinase 64 U/L (30-135); Estimated Glomerular Filt Rate > 60 mL/min (>60); Globulin 3.5 g/dL (1.7-4.1); Glucose 129 mg/dL (80-110); HEMOLYSIS < 15 (0-50); Lipase 76 U/L (23-300); Magnesium 2.1 mg/dL (1.6-2.3); Potassium 4.3 mmol/L (3.4-5.1); Sodium 134 mmol/L (137-145); Total Protein 7.7 g/dL (6.3-8.2)
--- NOTE | 2022-10-29 10:32 | ED_ITS ---
HPI - Arrhythmia/Palpitations General Chief Complaint: Arrhythmia/Palpitations Stated Complaint: Bradycardia Time Seen by Provider: 10/29/22 10:29 Source: patient, EMS, RN notes reviewed and old records reviewed Mode of arrival: EMS Limitations: no limitations History of Present Illness HPI narrative: This is a 87-year-old female who presents with slow heart rate dizziness/lightheadedness, patient does have a history of hypothyroidism, lymphoma that is currently stable and/or in remission and has never required any chemotherapy or other treatment. Patient has known bradycardia and has been told she should have a pacemaker. 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 She is not on any active chemo or immune therapy. Patient states that this morning she felt very lightheaded she stayed in bed she got a pulse in the 20s starting around 6:00 a.m. this morning. She was able to get to the bathroom and had a large bowel movement. She denies chest, denies shortness of breath, denies diaphoresis. She is not dizzy or lightheaded while lying in bed here in the emergency department. She is not had any syncope today. Patient states she did have nausea and 1 episode of vomiting. She denies any persistent diarrhea and no feeling of needing to have a bowel movement currently. She denies any new swelling of her extremities. She states she was on metoprolol until September and that was stopped. 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 Dr. Ferreira is her primary care physician. She has requested to see Dr. Sofia the EP at [facility] but is still unsure if she actually once a pacemaker placed. Patient understands that without treatment of her bradycardia she will . She is quite clear that she does not want intubation, she does not want chest compressions, she does not want electrical pacing. We are discussing IV medications such as a drip. She is unsure and she is not even convinced at this moment that she wants a pacemaker. She is expressing interest in hospice and possibly going home tonight or being in the hospital if hospice is not available in the short term. She expresses that she is not afraid to and that her main concern is her family. She does normally live independently with her . She notes that she does a lot of the caregiving. She has several children regionally. When asked if she would like them to be contacted to come see her she defers. Related Data Home Medications Medication Instructions Recorded Confirmed cyclosporine 0.05 % eye drops in a 1 drp [facility] ##0 03/05/13 09/20/22 dropperette (Restasis) calcium carbonate 600 mg calcium 600 mg PO BID 04/12/18 09/20/22 (1,500 mg) tablet famotidine 10 mg tablet (Pepcid AC) 10 mg PO PRN PRN Acid Reflux 04/12/18 09/20/22 ferrous gluconate 324 mg (36 mg 324 mg PO DAILY 04/12/18 09/20/22 iron) tablet nystatin 100,000 unit/gram topical 1 applictn topical BID PRN Rash 04/12/18 09/20/22 cream fexofenadine 180 mg tablet 180 mg PO DAILY 05/14/18 09/20/22 (Corina Allergy) methylcellulose (laxative) 500 mg 500 mg PO DAILY 05/14/18 09/20/22 tablet (Citrucel) psyllium husk 0.4 gram capsule 0.4 g PO DAILY PRN Constipation 05/14/18 09/20/22 (Metamucil) apixaban 2.5 mg tablet (Eliquis) 2.5 mg PO BID 05/10/21 09/20/22 docusate sodium 100 mg capsule 100 mg PO DAILY 06/18/21 09/20/22 (Colace) acetaminophen 500 mg tablet 500 mg PO Q6H PRN 12/01/21 09/20/22 (Tylenol Extra Strength) insulin syringe-needle U-100 1 mL #10 ea 12/01/21 09/20/22 30 gauge x 1/2 (BD Insulin Syringe Ultra-Fine) cholecalciferol (vitamin D3) 50 50 mcg PO DAILY 02/16/22 09/20/22 mcg (2,000 unit) capsule multivitamin 1 tab PO DAILY 02/16/22 09/20/22 omega 1-mgi-zra-fish oil 1,200 mg 1 cap PO DAILY 02/16/22 09/20/22 (144 mg-216 mg) capsule (Fish Oil) Previous Rx's Medication Instructions Recorded cyanocobalamin (vitamin B-12) 1,000 mcg IM Q2W #6 mL 12/01/21 1,000 mcg/mL injection solution levothyroxine 50 mcg tablet See Rx Instructions .Route 05/03/22 (Levoxyl) .COMPLEX #120 tabs methocarbamol 500 mg tablet 500 mg PO TID PRN spasms #20 tabs 07/14/22 flunisolide 25 mcg (0.025 %) nasal 1 spray intranasal DAILY #25 mL 07/26/22 spray Levoxyl 75 mcg tablet 75 mcg PO .every other day #90 tabs 07/31/22 (levothyroxine) Allergies Allergy/AdvReac Type Severity Reaction Status Date / Time ciprofloxacin [From CIPRO] Allergy Mild itching Verified 09/20/22 09:59 atorvastatin [From Lipitor] Allergy muscles Verified 09/20/22 09:59 stop working Sulfa (Sulfonamide AdvReac Severe n\v Verified 09/20/22 09:59 Antibiotics) [SULFA (SULFONAMIDE ANTIBIOTICS)] adhesive [ADHESIVE] AdvReac Mild some Verified 09/20/22 09:59 tapes, redness and itching metoprolol AdvReac Mild Syncope Verified 09/20/22 09:59 hydroxyzine [From Vistaril] AdvReac bad Verified 09/20/22 09:59 muscle spasms levothyroxine AdvReac colitis Verified 09/20/22 09:59 and diarrhea Review of Systems Review of Systems ROS Unobtainable: All systems reviewed & are unremarkable except as noted in HPI and below Patient History Medical History (Updated 11/06/22 @ 03:41 by Rob Ferreira MD) Acquired hypothyroidism Anemia Angioimmunoblastic T-cell lymphoma (~2020) Ankle pain Anxiety (~194) Aortic valve sclerosis (~2018) B12 deficiency Breast cancer Carpal tunnel syndrome of right wrist (~1987) Cataracts, bilateral (~2006) Chicken pox (~194) Chlamydia (~1982) Chronic anticoagulation Chronic back pain Colitis (~2015) Colon polyps Diverticular disease (~2017) Do not resuscitate Endometriosis (~1971) Essential hypertension Essential hypertension with goal blood pressure less than 130/85 Foot pain (~2019) Ganglion, right wrist Generalized anxiety disorder Heavy menstrual period (~1949) Hiatal hernia History of endometriosis History of left breast cancer History of left breast cancer History of recurrent ear infection History of trigger finger History of urinary incontinence (~2009) Hypothyroidism Inguinal lymphadenopathy Internal hemorrhoid (~1999) Left bundle branch block Lymphedema (~1987) Lymphedema of arm Measles (~1943) Mitral valve prolapse (~12/13/18) Mixed hyperlipidemia Mumps (~1942) Osteoporosis (~09/29/21) Painful menstrual periods Paroxysmal atrial fibrillation Paroxysmal atrial fibrillation Peripheral neuropathy Plantar warts (~1947) Presence of cardiac pacemaker Primary osteoarthritis involving multiple joints Recurrent sinusitis Rubella (~1941) Seizure (~06/18/21) Skin cancer Spine pain, lumbar (~07/2009) Tingling of face Tinnitus Voice disorder (~2017) Surgical History H/O hysterectomy for benign disease (~1971) History of 3 sections History of appendectomy History of arthroscopic knee surgery History of biopsy (~03/10/21) History of breast biopsy History of carpal tunnel release History of cataract removal with insertion of prosthetic lens (~2006) History of colonoscopy History of eye surgery (~1989) History of lymph node biopsy (~05/31/21) History of modified radical mastectomy (~1987) History of surgical removal of skin lesion History of tonsillectomy (~1942) History of total bilateral knee replacement (~01/19/14) Family History Father Heart disease Hypertension Stroke Mother Appendicitis Brother Heart disease Hypertension Hyperlipidemia Arthritis Grandmother Allergies Sister Uterine cancer Social History marital status: household members: spouse Smoking Status: Never smoker alcohol intake: current Smoking Status: Never smoker Substance Use Type: does not use Exam Narrative Exam Narrative: GENERAL: Alert and oriented x three, elderly female. Mild distress. HEENT: Head normocephalic, atraumatic, EOMI, pupils reactive, face symmetric, moist mucous membranes NECK: Supple, full range of motion CARDIOVASCULAR: Very Bradycardic and irregular Regular rate and rhythm without murmurs, rubs or gallops. Mild swelling bilateral lower extremities. RESPIRATORY: Breath sounds equal bilaterally, no wheezes rales or rhonchi. ABDOMEN: Soft, nontender. Normoactive bowel sounds all 4 quadrants. No guarding or rebound, rigidity, no mass : No CVA tenderness EXTREMITIES: Normal range of motion, no clubbing or edema. Neurovascularly intact NEUROLOGICAL: Cranial nerves II through XII grossly intact. Moving all extremities SKIN: Warm, dry, no petechiae, no rashes or lesions. Initial Vital Signs Initial Vital Signs: Vital Signs Pulse Rate 36 L 10/29/22 10:02 Respiratory Rate 18 10/29/22 10:02 Course Orders Ordered: Discontinued Medications Atropine Sulfate (Atropine 1 Mg/10 Ml Syringe) 0.5 mg IV NOW ONE Stop: 10/29/22 10:31 Last Admin: 10/29/22 14:25 Dose: Not Given Documented By: NR Vital Signs Vital signs: Vital Signs - 8 hr 10/29/22 12:00 10/29/22 12:30 10/29/22 13:00 Pulse Rate 69 78 67 Respiratory Rate 25 H 38 H 30 H Blood Pressure Pulse Oximetry 96 95 96 10/29/22 13:30 10/29/22 13:31 10/29/22 13:31 Pulse Rate 66 66 Respiratory Rate 39 H 21 Blood Pressure 141/65 H Pulse Oximetry 95 94 10/29/22 14:00 10/29/22 14:30 10/29/22 14:31 Pulse Rate 63 59 L 59 L Respiratory Rate 23 26 H 33 H Blood Pressure Pulse Oximetry 95 95 96 10/29/22 14:31 10/29/22 15:00 10/29/22 15:01 Pulse Rate 60 63 Respiratory Rate 29 H 39 H Blood Pressure 153/69 H Pulse Oximetry 96 96 10/29/22 15:01 10/29/22 15:30 10/29/22 15:31 Pulse Rate 67 61 Respiratory Rate 28 H 23 Blood Pressure 147/68 H Pulse Oximetry 96 96 10/29/22 15:31 10/29/22 16:00 10/29/22 16:01 Pulse Rate 56 L 61 Respiratory Rate 20 24 Blood Pressure 143/66 H Pulse Oximetry 96 94 10/29/22 16:01 Pulse Rate Respiratory Rate Blood Pressure 132/61 Pulse Oximetry MDM - Arrhythmia/Palpitations Lab Data 10/29/22 10:00 10/29/22 10:00 Labs: Lab Results 10/29/22 10/29/22 10/29/22 Range/Units 10:00 10:00 10:00 WBC 6.8 (4.5-11.0) X10^3/uL RBC 4.22 (4.0-5.2) X10^6/uL Hgb 13.7 (12.0-16.0) g/dL Hct 40.4 (36-46) % MCV 95.7 (80-100) fL MCH 32.5 (26-34) PG MCHC 34.0 (30-36) % RDW 13.3 (11.6-14.8) % Plt Count 281 (150-400) X10^3/uL Neut % (Auto) 70.5 (50-75) % Lymph % (Auto) 19.7 L (25-40) % Edmonson % (Auto) 8.3 (3-14) % Eos % (Auto) 1.2 L (2-4) % Baso % (Auto) 0.3 (0-2) % Neut # (Auto) 4800 (3551-7067) /uL Lymph # (Auto) 1300 (1377-0225) /uL Edmonson # (Auto) 600 (0-900) /uL Eos # (Auto) 100 (0-450) /uL Baso # (Auto) 0 (0-100) /uL PT 12.9 H (10.1-12.7) SECONDS INR 1.1 (0.9-1.3) APTT 33 (26-36) SECONDS Sodium 134 L (137-145) mmol/L Potassium 4.3 (3.4-5.1) mmol/L Chloride 100 (98-107) mmol/L Carbon Dioxide 24 (22-32) mmol/L BUN 25 H (7-17) mg/dL Creatinine 0.67 (0.52-1.04) mg/dL Estimated GFR > 60 (>60) mL/min BUN/Creatinine Ratio 37.3 H (6-22) Glucose 129 H (80-110) mg/dL Calcium 9.1 (8.4-10.2) mg/dL Magnesium 2.1 (1.6-2.3) mg/dL Total Bilirubin 0.4 (0.2-1.3) mg/dL AST 90 H (14-36) IU/L ALT 80 H (<35) IU/L Alkaline Phosphatase 118 (38-126) U/L Total Creatine Kinase 64 (30-135) U/L CK-MB (CK-2) TNP CK-MB (CK-2) Rel Index TNP Troponin I < 0.012 (0.01-0.034) ng/mL Total Protein 7.7 (6.3-8.2) g/dL Albumin 4.2 (3.5-5.0) g/dL Globulin 3.5 (1.7-4.1) g/dL Albumin/Globulin Ratio 1.2 (1.0-2.8) Lipase 76 (23-300) U/L TSH (0.47-4.68) uIU/mL SARS-CoV-2 (PCR) (Negative) 10/29/22 10/29/22 10/29/22 Range/Units 10:00 10:00 10:25 WBC (4.5-11.0) X10^3/uL RBC (4.0-5.2) X10^6/uL Hgb (12.0-16.0) g/dL Hct (36-46) % MCV (80-100) fL MCH (26-34) PG MCHC (30-36) % RDW (11.6-14.8) % Plt Count (150-400) X10^3/uL Neut % (Auto) (50-75) % Lymph % (Auto) (25-40) % Edmonson % (Auto) (3-14) % Eos % (Auto) (2-4) % Baso % (Auto) (0-2) % Neut # (Auto) (3267-0646) /uL Lymph # (Auto) (5465-2362) /uL Edmonson # (Auto) (0-900) /uL Eos # (Auto) (0-450) /uL Baso # (Auto) (0-100) /uL PT (10.1-12.7) SECONDS INR (0.9-1.3) APTT (26-36) SECONDS Sodium (137-145) mmol/L Potassium (3.4-5.1) mmol/L Chloride (98-107) mmol/L Carbon Dioxide (22-32) mmol/L BUN (7-17) mg/dL Creatinine (0.52-1.04) mg/dL Estimated GFR (>60) mL/min BUN/Creatinine Ratio (6-22) Glucose (80-110) mg/dL Calcium (8.4-10.2) mg/dL Magnesium 2.1 (1.6-2.3) mg/dL Total Bilirubin (0.2-1.3) mg/dL AST (14-36) IU/L ALT (<35) IU/L Alkaline Phosphatase (38-126) U/L Total Creatine Kinase (30-135) U/L CK-MB (CK-2) CK-MB (CK-2) Rel Index Troponin I (0.01-0.034) ng/mL Total Protein (6.3-8.2) g/dL Albumin (3.5-5.0) g/dL Globulin (1.7-4.1) g/dL Albumin/Globulin Ratio (1.0-2.8) Lipase (23-300) U/L TSH 1.47 (0.47-4.68) uIU/mL SARS-CoV-2 (PCR) Negative (Negative) ECG Data Attestation: I personally reviewed and interpreted this ECG as follows: Interpretation: Patient has appears to be a third-degree heart block. Patient has a ventricular rate of 28, QRS of 128 and QTC of 399. Patient has regular P waves throughout. 2. Bradycardia appears to be sinus, left bundle. Rate of 57 ND 194 QRS of 128 QTC 445. Treatment and disposition Code Status and discussions:: DNR/DNI, no electrical pacing. Patient was amenable to atropine IV. She is still questioning if she wants IV pressors such as epinephrine for her bradycardia, and she is contemplating if she truly wants a pacemaker and is asking about hospice. Patient refused atropine in department, states no pressors. Still considering pacemaker. [facility] Narrative Medical decision making narrative: This is an 87-year-old female with known bradycardia who appears to be in a th ird-degree block, patient has been recommended to have a pacemaker she is been left to pursue this with concerns it would make her cancer worse. She is still on the fence about whether or not she would want a pacemaker when asked directly. She does not want resuscitation, she does not want electrical pacing. Patient is open to a dose of atropine which made mild difference with EMS in the field bring her to 20s to 40s from 20s to 60s. She is open to treatment of electrolyte abnormalities. We discussed drips, she is still contemplating but also asking about hospice if she could go home to with this or possibly be admitted to the hospital for end of life care. Spoke with Dr. Chun, she would recommend dopamine drip, they would be willing to take her for pacemaker she does feel Dr. Sofia's likely available. She agrees with IV leave our thyroxine if patient's TSH is abnormal. And asked for call back if patient and family are interested in pacemaker. Patient's heart rate improved into the 50s to 70s does appear to be irregular and repeat EKG shows So far patient's heart rate has been consistently in the 50s to 70s since then After multiple conversations between the patient, her , her family, our 7th grade social studies teacher and myself patient has elected to move forward pacemaker. Patient was offered all options. She is clear that if her heart stops all of the sudden she does not want to be resuscitated but she is open to the procedure and postprocedure treatment. 1452: Spoke with Dr Menendez Cardiology, discussed patient is open to the procedure. If they have bed availability she is happy to see the patient would have talked to hospitalist or zinc furnace charger whichever is preferred by coordinator. Spoke with Dr. Rebolledo, [facility]. Hospitalist accepts for transfer. Reviewed labs, EKGs, patient did have improvement of heart rate and appears to either be sinus Ranjith or AFib but now in the 50-60 range. Patient has not been hypotensive. Discussed that she is had DNR/DNI no pressors, no electric shock is open to pacemaker placement. No other clear cause patient does not appear to be on any medications that would slow her rate, no electrolyte, thyroid changes or other clear causes other than inherent electrical issues. They did request a POLST form be filled out with patient for transfer. Reviewed this with patient she is open to just atropine EN route, she does not want any other changes. Critical Care Time Critical Care Time Critical Care Time: Yes Total Critical Care Time: 65 Attestation: The high probability of a clinically significant, sudden or life threatening deterioration of the [cardiac] system(s) required my full and direct attention, intervention and personal management. The aggregate critical care time was [65] minutes. This time is in addition to time spent performing reported procedures but includes the following: [x] Data Review and interpretation [x] Patient assessment and monitoring of vital signs [x] Documentation [x] Medication orders and management Discharge Plan Departure Patient Disposition: [facility] Clinical Impression: Third degree heart block Prescriptions: No Action Restasis 1 EACH dropperette 1 drp CATHYTH QAM Qty: 0 levothyroxine [Levoxyl] 50 mcg tablet See Rx Instructions .ROUTE .COMPLEX Qty: 120 3RF Dose Instruction: TAKE BY ALTERNATING 50MCG AND 75MCG BY MOUTH ONCE EVERY OTHER DAY Rx Instructions: TAKE BY ALTERNATING 50MCG AND 75MCG BY MOUTH ONCE EVERY OTHER DAY flunisolide 25 mcg (0.025 %) spray,non-aerosol 1 spray intranasal DAILY Qty: 25 5RF levothyroxine [Levoxyl] 75 mcg tablet 75 mcg PO .every other day Qty: 90 0RF Rx Instructions: 75mcg every other day; brand name only. (DME) insulin syringe-needle U-100 [BD Insulin Syringe Ultra-Fine] 1 mL 30 gauge x 1/2 syringe See Rx Instructions .ROUTE .MEDSUPPLY Qty: 10 Patient Comments: USE ONE SYRINGE TO INJECT INTRAMUSCULARLY EVERY TWO WEEKS. Rx Instructions: As directed acetaminophen [Tylenol Extra Strength] 500 mg tablet 500 mg PO Q6H PRN cyanocobalamin (vitamin B-12) 1,000 mcg/mL solution 1,000 mcg IM Q2W Qty: 6 3RF cholecalciferol (vitamin D3) 50 mcg (2,000 unit) capsule 50 mcg PO DAILY multivitamin Tablet 1 tab PO DAILY omega 2-jpt-vyc-fish oil [Fish Oil] 1,200 (144-216) mg capsule 1 cap PO DAILY methocarbamol 500 mg tablet 500 mg PO TID PRN (Reason: spasms) Qty: 20 1RF ferrous gluconate 324 mg (36 mg iron) tablet 324 mg PO DAILY calcium carbonate 600 mg calcium (1,500 mg) tablet 600 mg PO BID famotidine [Pepcid AC] 10 mg tablet 10 mg PO PRN PRN (Reason: Acid Reflux) nystatin 100,000 unit/gram cream 1 applictn TOP BID PRN (Reason: Rash) Eliquis 2.5 mg tablet 2.5 mg PO BID Patient Comments: TAKE ONE TABLET BY MOUTH TWICE DAILY fexofenadine [Corina Allergy] 180 mg Tablet 180 mg PO DAILY Citrucel 500 mg Tablet 500 mg PO DAILY psyllium husk [Metamucil] 0.4 gram Capsule 0.4 g PO DAILY PRN (Reason: Constipation) Patient Comments: TAKES 2 TABS docusate sodium [Colace] 100 mg Capsule 100 mg PO DAILY Referrals: Rob Ferreira MD [Primary Care Provider] -
[2022-10-29 10:38] LABS: Troponin I < 0.012 ng/mL (0.01-0.034)
[2022-10-29 10:40] LABS: Add Manual Diff / Slide Review NO; Basophils Absolute Auto 0 /uL (0-100); Basophils Percent Auto 0.3 % (0-2); Eosinophils Absolute Auto 100 /uL (0-450); Eosinophils Percent Auto 1.2 % (2-4); Hematocrit 40.4 % (36-46); Hemoglobin 13.7 g/dL (12.0-16.0); Lymphocytes Absolute Auto 1300 /uL (1100-4500); Lymphocytes Percent Auto 19.7 % (25-40); Mean Corpuscular Hemoglobin 32.5 PG (26-34); Mean Corpuscular Volume 95.7 fL (80-100); Monocytes Absolute Auto 600 /uL (0-900); Monocytes Percent Auto 8.3 % (3-14); Neutrophils Absolute Auto 4800 /uL (1500-7000); Neutrophils Percent Auto 70.5 % (50-75); Platelet Count 281 X10^3/uL (150-400); Red Blood Cell Count 4.22 X10^6/uL (4.0-5.2); Red Cell Distribution Width 13.3 % (11.6-14.8); White Blood Cell Count 6.8 X10^3/uL (4.5-11.0)
[2022-10-29 10:42] LABS: Magnesium 2.1 mg/dL (1.6-2.3)
[2022-10-29 10:46] LABS: COVID19 -Nasal RAPID Negative (Negative)
[2022-10-29 11:14] LABS: Thyroid Stimulating Hormone 1.47 uIU/mL (0.47-4.68)
--- NOTE | 2022-10-29 13:36 | CM.SWNOTE ---
Addendum entered by Carrie HernandezJAG hoyos 10/29/22 15:09: ADD: Per ED MD, after further ongoing discussion with pt and family the decisions is to move forward with pacemaker placement and [facility] Adjuster. BF Original Note: Goals of Care discussion Patient is an 87 yo female who was admitted on 10/29/22 to [place] for Bradycardia. Pt has MCR and A[employer] for insurance and her PCP is Dr. Rob Ferreira. EMR was reviewed. Per ED MD, pt needing a pacemaker placed due to her bradycardia and heart rate was in the 20's but has improved to the 60's but pt currently declining transfer for pacemaker and interested in Comfort/Hospice. [employer] Consult placed for Goals of Care discussion. SW met bedside with pt and spouse and explained role and pt confirms she lives at home with her spouse who has MS but fairly independent but with some flare ups. Pt is currently established with Oncologist Dr. Ramirez for her T cell lymphoma and gets blood draws and monitoring every few months. Pt typically is independent at baseline, still does the cooking and housekeeping and does not use DME for ambulation. Pt has a hx of cancer for the past 30 years and states she is tired, I've been fighting for so long against cancer with so many surgeries. 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 Pt and spouse have 3 adult children, two sons that live near [place] and adult Dtr who lives in [place]. SW discussed options of Hospice and comfort measures vs pursuing tx and getting hospital transfer for pacemaker placement. Pt and spouse agreeable with [facility] referral and Info Visit towards helping make their decision. Spouse tearful and supportive and requests Info Visit on his cell phone as their youngest son will be arriving bedside soon to help with making medical decision. Pt really hopeful to have consultation by her PCP Dr. Ferreira but aware today is Sunday and he likely is not available today as he isn't on-call this weekend. AMINATA updated ED MD and ED RN who will continue with this discussion with pt and family bedside to determine transfer for tx vs comfort measures. AMINATA called [facility] and made initial referral and faxed clinicals to review. Miranda states clinicals received but currently they do not have an opening for 2-3 days but SW requested info visit today within the hour to spouse cell phone and provided his contact info and they are willing to do that now. Plan: SW to follow for pt/family decision to determine home with [facility] vs hospital transfer for higher level of care of pacemaker placement. JAG Castillo
--- NOTE | 2022-10-29 14:57 | PC.NURSE ---
spoke with spinning supervisor at [facility], juanjose. pt has decided to get pacemaker. spinning supervisor asked if pt was aware of risks of lymphoma and getting pacemaker. informed him that patient has had conversations in the past with her oncologist about getting pacemaker as this is not her first episode. juanjose is going to speak with chief clerk shelter and call us back.
== END 2022-10-29 20:55 | disposition short-term general hospital (02) ==
PROVIDERS: Emergency Provider Emergency Medicine; PCP Internal Medicine
DX: I44.2 Atrioventricular block, complete (principal); Z20.822 Contact with and (suspected) exposure to COVID-19; Z79.899 Other long term (current) drug therapy
CPT/HCPCS: 36415; 71045; 80053; 82550; 83690; 83735; 84443; 84484; 85025; 85610; 85730; 87635; 93005; 99284; 99285; C9803

== ENCOUNTER 2023-04-30 13:27 | Emergency (ER) | payer MEDICARE, SELFPAY ==
[2021-06-18 22:49] VITALS: BMI 25.1
[2023-04-30 13:40] VITALS: BP 155/69; PULSE 60; RESP 18; TEMP 36.7; O2SAT 98; BMI 25.5
--- NOTE | 2023-04-30 13:44 | DI.RAD.S_ITS ---
PROCEDURE: XR HAND RT MIN 3V INDICATIONS: Non-traumatic swelling TECHNIQUE: 3 views of the hand(s) acquired. COMPARISON: None. FINDINGS: Bones: No fractures or dislocations. Carpal bones are normally aligned. No suspicious bony lesions. There is up to severe osteoarthritic changes diffusely involving the interphalangeal joints, metacarpophalangeal joints and 1st carpometacarpal joint. Ulnar subluxation at several proximal interphalangeal joints. Juxtacortical lucencies are present. Decreased osseous mineralization. Soft tissues: No suspicious soft tissue calcifications. IMPRESSION: No acute osseous abnormalities. Severe osteoarthritic changes of the hand with juxtacortical lucencies which may represent subcortical cystic changes versus erosions. Decreased osseous mineralization. Dictated by: Gabriel Ibarra M.D. on 04/30/2023 at 14:43 Approved by: Gabriel Ibarra M.D. on 04/30/2023 at 14:45
--- NOTE | 2023-04-30 13:44 | DI.RAD.S_ITS ---
PROCEDURE: XR WRIST RT MIN 3V INDICATIONS: Non-traumatic swelling TECHNIQUE: 3 views of the wrist were acquired. COMPARISON: [facility], , WRIST MINIMUM 3 VIEWS RIGHT, 05/11/2016, 10:05. FINDINGS: Bones: No fractures or dislocations. No suspicious bony lesions. Severe osteoarthritic changes of the 1st carpometacarpal joint and between the scaphoid and trapezium. Osteoarthritic changes of the radiocarpal joint. Radiocarpal joint space calcification is seen. Decreased osseous mineralization. Soft tissues: No suspicious soft tissue calcifications. IMPRESSION: No acute osseous abnormalities. Severe osteoarthritic changes. Chondrocalcinosis is present. Differential diagnosis includes but is not limited to hemochromatosis, hyperparathyroidism and CPPD. Dictated by: Gabriel Ibarra M.D. on 04/30/2023 at 14:41 Approved by: Gabriel Ibarra M.D. on 04/30/2023 at 14:43
--- NOTE | 2023-04-30 15:36 | ED.EXTPRO ---
HPI - Extremity Problem General Chief complaint: Extremity Problem,Nontraumatic Stated complaint: RT wrist pain T-14 Time Seen by Provider: 04/30/23 15:25 Source: patient Mode of arrival: Ambulatory History of Present Illness HPI Narrative: 88-year-old female who is here for evaluation of approximately 2 weeks of right wrist swelling and redness. She has been using Voltaren cream without any improvement. There was no specific trauma. She is no history of gout. She does have a history of lymphoma and she was concerned about some nodules around her wrist and potentially these were lymph nodes. She denies any fevers. She has been using a wrist brace at home. She is been taking Tylenol as well. Related Data Home Medications Medication Instructions Recorded Confirmed cyclosporine 0.05 % eye drops in a 1 drp [facility] ##0 03/05/13 02/05/23 dropperette (Restasis) calcium carbonate 600 mg calcium 600 mg PO BID 04/12/18 02/05/23 (1,500 mg) tablet famotidine 10 mg tablet (Pepcid AC) 10 mg PO PRN PRN Acid Reflux 04/12/18 02/05/23 ferrous gluconate 324 mg (36 mg 324 mg PO DAILY 04/12/18 02/05/23 iron) tablet nystatin 100,000 unit/gram topical 1 applictn topical BID PRN Rash 04/12/18 02/05/23 cream fexofenadine 180 mg tablet 180 mg PO DAILY 05/14/18 02/05/23 (Corina Allergy) methylcellulose (laxative) 500 mg 500 mg PO DAILY 05/14/18 02/05/23 tablet (Citrucel) psyllium husk 0.4 gram capsule 0.4 g PO DAILY PRN Constipation 05/14/18 02/05/23 (Metamucil) apixaban 2.5 mg tablet (Eliquis) 2.5 mg PO BID 05/10/21 02/05/23 docusate sodium 100 mg capsule 100 mg PO DAILY 06/18/21 02/05/23 (Colace) acetaminophen 500 mg tablet 500 mg PO Q6H PRN 12/01/21 02/05/23 (Tylenol Extra Strength) cholecalciferol (vitamin D3) 50 50 mcg PO DAILY 02/16/22 02/05/23 mcg (2,000 unit) capsule multivitamin 1 tab PO DAILY 02/16/22 02/05/23 omega 2-kjs-zjr-fish oil 1,200 mg 1 cap PO DAILY 02/16/22 02/05/23 (144 mg-216 mg) capsule (Fish Oil) doxycycline hyclate 100 mg tablet 100 mg PO BID 11/06/22 02/05/23 flecainide 50 mg tablet 25 mg PO Q12H 11/06/22 02/05/23 metoprolol succinate 25 mg 12.5 mg PO DAILY 11/06/22 02/05/23 tablet,extended release 24 hr Previous Rx's Medication Instructions Recorded levothyroxine 50 mcg tablet See Rx Instructions .Route 05/03/22 (Levoxyl) .COMPLEX #120 tabs flunisolide 25 mcg (0.025 %) nasal 1 spray intranasal DAILY #25 mL 07/26/22 spray Levoxyl 75 mcg tablet 75 mcg PO .every other day #90 tabs 11/21/22 (levothyroxine) cyanocobalamin (vitamin B-12) 1,000 mcg IM Q2W #6 mL 11/21/22 1,000 mcg/mL injection solution insulin syringe-needle U-100 1 mL #100 ea 03/13/23 30 gauge x 1/2 (BD Insulin Syringe Ultra-Fine) Allergies Allergy/AdvReac Type Severity Reaction Status Date / Time ciprofloxacin [From CIPRO] Allergy Mild itching Verified 04/30/23 13:39 atorvastatin [From Lipitor] Allergy muscles Verified 04/30/23 13:39 stop working Sulfa (Sulfonamide AdvReac Severe n\v Verified 04/30/23 13:39 Antibiotics) [SULFA (SULFONAMIDE ANTIBIOTICS)] adhesive [ADHESIVE] AdvReac Mild some Verified 04/30/23 13:39 tapes, redness and itching hydroxyzine [From Vistaril] AdvReac bad Verified 04/30/23 13:39 muscle spasms levothyroxine AdvReac colitis Verified 04/30/23 13:39 and diarrhea Review of Systems Constitutional Constitutional: Reports system reviewed and no additional complaints, except as documented Musculoskeletal Musculoskeletal: Reports system reviewed and no additional complaints, except as documented Integumentary/Breasts Skin/Breast: Reports system reviewed and no additional complaints, except as documented Neurologic Neurologic: Reports system reviewed and no additional complaints, except as documented Patient History Medical History Acquired hypothyroidism Anemia Angioimmunoblastic T-cell lymphoma (~2020) Ankle pain Anxiety (~1939) Aortic valve sclerosis (~2018) B12 deficiency Breast cancer Carpal tunnel syndrome of right wrist (~1987) Cataracts, bilateral (~2006) Chicken pox (~1942) Chlamydia (~1982) Chronic anticoagulation Chronic back pain Colitis (~2015) Colon polyps Diverticular disease (~2017) Do not resuscitate Endometriosis (~1971) Essential hypertension Essential hypertension with goal blood pressure less than 130/85 Foot pain (~2019) Ganglion, right wrist Generalized anxiety disorder Heavy menstrual period (~1948) Hiatal hernia History of endometriosis History of left breast cancer History of left breast cancer History of recurrent ear infection History of trigger finger History of urinary incontinence (~2009) Hypothyroidism Inguinal lymphadenopathy Internal hemorrhoid (~1999) Left bundle branch block Lymphedema (~1987) Lymphedema of arm Measles (~1943) Mitral valve prolapse (~12/13/18) Mixed hyperlipidemia Mumps (~1942) Osteoporosis (~09/29/21) Painful menstrual periods Paroxysmal atrial fibrillation Paroxysmal atrial fibrillation Peripheral neuropathy Plantar warts (~1947) Presence of cardiac pacemaker Primary osteoarthritis involving multiple joints Recurrent sinusitis Rubella (~1941) Seizure (~06/18/21) Skin cancer Spine pain, lumbar (~07/2009) Tingling of face Tinnitus Voice disorder (~2017) Surgical History H/O hysterectomy for benign disease (~1971) History of 3 sections History of appendectomy History of arthroscopic knee surgery History of biopsy (~03/10/21) History of breast biopsy History of carpal tunnel release History of cataract removal with insertion of prosthetic lens (~2006) History of colonoscopy History of eye surgery (~1989) History of lymph node biopsy (~05/31/21) History of modified radical mastectomy (~1987) History of surgical removal of skin lesion History of tonsillectomy (~1942) History of total bilateral knee replacement (~01/19/14) Family History Father Heart disease Hypertension Stroke Mother Appendicitis Brother Heart disease Hypertension Hyperlipidemia Arthritis Grandmother Allergies Sister Uterine cancer Social History marital status: household members: spouse Smoking Status: Never smoker alcohol intake: current Smoking Status: Never smoker Substance Use Type: does not use Exam Initial Vital Signs Initial Vital Signs: Vital Signs Temperature 98.1 F 04/30/23 13:40 Pulse Rate 60 04/30/23 13:40 Respiratory Rate 18 04/30/23 13:40 Blood Pressure 155/69 H 04/30/23 13:40 Pulse Oximetry 98 04/30/23 13:40 Oxygen Delivery Method Room Air 04/30/23 13:40 HENMT Head: normal to inspection and normocephalic Skin Other: Redness and warmth specifically to the dorsum of the right wrist. Neuro Sensory Exam: no sensory deficits noted Extrem Other: Patient does have some swelling and redness and warmth of the right wrist but she is able to flex and extend and pronate and supinate. Her right elbow is unremarkable. Course Orders Ordered: ED Orders 04/30/23 13:44 XR hand RT min 3V Stat XR wrist RT min 3V Stat 04/30/23 16:02 BMP [Basic Metabolic Panel] Stat CBC Auto Diff [Complete Blood Count AUTO DIFF] Stat Uric Acid Stat Vital Signs Vital signs: Vital Signs - 8 hr 04/30/23 13:40 Temperature 98.1 F Pulse Rate 60 Respiratory Rate 18 Blood Pressure 155/69 H Pulse Oximetry 98 Oxygen Delivery Method Room Air MDM - Extremity (Nontraumatic) Lab Data 04/30/23 16:02 04/30/23 16:02 Labs: Lab Results 04/30/23 04/30/23 Range/Units 16:02 16:02 WBC 6.0 (4.5-11.0) X10^3/uL RBC 3.89 L (4.0-5.2) X10^6/uL Hgb 12.7 (12.0-16.0) g/dL Hct 36.3 (36-46) % MCV 93.3 (80-100) fL MCH 32.6 (26-34) PG MCHC 35.0 (30-36) % RDW 12.9 (11.6-14.8) % Plt Count 248 (150-400) X10^3/uL Neut % (Auto) 57.2 (50-75) % Lymph % (Auto) 26.0 (25-40) % Hardeman % (Auto) 11.3 (3-14) % Eos % (Auto) 4.9 H (2-4) % Baso % (Auto) 0.6 (0-2) % Neut # (Auto) 3400 (9452-1816) /uL Lymph # (Auto) 1500 (4026-2955) /uL Hardeman # (Auto) 700 (0-900) /uL Eos # (Auto) 300 (0-450) /uL Baso # (Auto) 0 (0-100) /uL Sodium 135 L (137-145) mmol/L Potassium 4.2 (3.4-5.1) mmol/L Chloride 104 (98-107) mmol/L Carbon Dioxide 23 (22-32) mmol/L BUN 18 H (7-17) mg/dL Creatinine 0.54 (0.52-1.04) mg/dL Estimated GFR > 60 (>60) mL/min BUN/Creatinine Ratio 33.3 H (6-22) Glucose 84 (80-110) mg/dL Uric Acid 2.8 (2.5-6.2) mg/dL Calcium 9.2 (8.4-10.2) mg/dL Imaging Data Extremity x-ray #1: Radiologist's Impression: PROCEDURE:? XR HAND RT MIN 3V ? INDICATIONS:? Non-traumatic swelling ? TECHNIQUE:? 3 views of the hand(s) acquired.? ? COMPARISON:? None. ? FINDINGS:? ? Bones:? No fractures or dislocations.? Carpal bones are normally aligned.? No suspicious bony lesions.? There is up to severe osteoarthritic changes diffusely involving the interphalangeal joints, metacarpophalangeal joints and 1st carpometacarpal joint.? Ulnar subluxation at several proximal interphalangeal joints.? Juxtacortical lucencies are present.? Decreased osseous mineralization. ? Soft tissues:? No suspicious soft tissue calcifications.? ? ? IMPRESSION:? No acute osseous abnormalities.? Severe osteoarthritic changes of the hand with juxtacortical lucencies which may represent subcortical cystic changes versus erosions.? Decreased osseous mineralization. Extremity x-ray #2: Radiologist's Impression: PROCEDURE:? XR WRIST RT MIN 3V ? INDICATIONS: Non-traumatic swelling ? TECHNIQUE:? 3 views of the wrist were acquired.? ? COMPARISON:? [facility], , WRIST MINIMUM 3 VIEWS RIGHT, 05/11/2016, 10:05. ? FINDINGS:? ? Bones:? No fractures or dislocations.? No suspicious bony lesions.? Severe osteoarthritic changes of the 1st carpometacarpal joint and between the scaphoid and trapezium.? Osteoarthritic changes of the radiocarpal joint.? Radiocarpal joint space calcification is seen.? Decreased osseous mineralization. ? Soft tissues:? No suspicious soft tissue calcifications.? ? IMPRESSION:? No acute osseous abnormalities.? Severe osteoarthritic changes.? Chondrocalcinosis is present.? Differential diagnosis includes but is not limited to hemochromatosis, hyperparathyroidism and CPPD. MDM Narrative Medical decision making narrative: Considered gout but her uric acid is negative and she does not have a history of gout. Considered septic joint however she can flex and extend and has a normal white blood cell count and her symptoms have been present for the past 2 weeks and I suspect that if this was an infectious process would be worse than what it is today. I have low suspicion that these are lymph nodes. Provided reassurance to the patient. This is most likely flare of her arthritis. Will treat conservative. We discussed how she can use Tylenol at home. She was given return precautions. She expressed understanding and agreement. Discharge Plan Departure Patient Disposition: Home Clinical Impression: Arthritis of wrist, right Instructions: DI for Arthritis Activity Restrictions/Additional Instructions: You can continue to use your wrist brace as needed. You can take it off to shower and also to use ice. I also recommend that you take the Tylenol like we talked about. Keep your scheduled appointment with your primary doctor. Return to the emergency department for new or worsening symptoms. Prescriptions: No Action Restasis 1 EACH dropperette 1 drp OPHTH QAM Qty: 0 levothyroxine [Levoxyl] 50 mcg tablet See Rx Instructions .ROUTE .COMPLEX Qty: 120 3RF Dose Instruction: TAKE BY ALTERNATING 50MCG AND 75MCG BY MOUTH ONCE EVERY OTHER DAY Rx Instructions: TAKE BY ALTERNATING 50MCG AND 75MCG BY MOUTH ONCE EVERY OTHER DAY flunisolide 25 mcg (0.025 %) spray,non-aerosol 1 spray intranasal DAILY Qty: 25 5RF cyanocobalamin (vitamin B-12) 1,000 mcg/mL solution 1,000 mcg IM Q2W Qty: 6 3RF levothyroxine [Levoxyl] 75 mcg tablet 75 mcg PO .every other day Qty: 90 3RF Rx Instructions: 75mcg every other day; brand name only. (DME) insulin syringe-needle U-100 [BD Insulin Syringe Ultra-Fine] 1 mL 30 gauge x 1/2 syringe See Rx Instructions .ROUTE .MEDSUPPLY Qty: 100 1RF Patient Comments: USE ONE SYRINGE TO INJECT INTRAMUSCULARLY EVERY TWO WEEKS. Rx Instructions: As directed acetaminophen [Tylenol Extra Strength] 500 mg tablet 500 mg PO Q6H PRN cholecalciferol (vitamin D3) 50 mcg (2,000 unit) capsule 50 mcg PO DAILY multivitamin Tablet 1 tab PO DAILY omega 1-uvx-asi-fish oil [Fish Oil] 1,200 (144-216) mg capsule 1 cap PO DAILY flecainide 50 mg tablet 25 mg PO Q12H metoprolol succinate 25 mg tablet extended release 24 hr 12.5 mg PO DAILY doxycycline hyclate 100 mg tablet 100 mg PO BID ferrous gluconate 324 mg (36 mg iron) tablet 324 mg PO DAILY calcium carbonate 600 mg calcium (1,500 mg) tablet 600 mg PO BID famotidine [Pepcid AC] 10 mg tablet 10 mg PO PRN PRN (Reason: Acid Reflux) nystatin 100,000 unit/gram cream 1 applictn TOP BID PRN (Reason: Rash) Eliquis 2.5 mg tablet 2.5 mg PO BID Patient Comments: TAKE ONE TABLET BY MOUTH TWICE DAILY fexofenadine [Corina Allergy] 180 mg Tablet 180 mg PO DAILY Citrucel 500 mg Tablet 500 mg PO DAILY psyllium husk [Metamucil] 0.4 gram Capsule 0.4 g PO DAILY PRN (Reason: Constipation) Patient Comments: TAKES 2 TABS docusate sodium [Colace] 100 mg Capsule 100 mg PO DAILY Referrals: Rob Ferreira MD [Primary Care Provider] - Stand Alone Forms: Patient Portal/API
[2023-04-30 16:34] LABS: BUN Creatinine Ratio 33.3 (6-22); Blood Urea Nitrogen 18 mg/dL (7-17); Calcium 9.2 mg/dL (8.4-10.2); Carbon Dioxide 23 mmol/L (22-32); Chloride 104 mmol/L (98-107); Estimated Glomerular Filt Rate > 60 mL/min (>60); Glucose 84 mg/dL (80-110); HEMOLYSIS < 15 (0-50); Potassium 4.2 mmol/L (3.4-5.1); Sodium 135 mmol/L (137-145); Uric Acid 2.8 mg/dL (2.5-6.2)
[2023-04-30 16:39] LABS: Add Manual Diff / Slide Review NO; Basophils Absolute Auto 0 /uL (0-100); Basophils Percent Auto 0.6 % (0-2); Eosinophils Absolute Auto 300 /uL (0-450); Eosinophils Percent Auto 4.9 % (2-4); Hematocrit 36.3 % (36-46); Hemoglobin 12.7 g/dL (12.0-16.0); Lymphocytes Absolute Auto 1500 /uL (1100-4500); Mean Corpuscular Hemoglobin 32.6 PG (26-34); Mean Corpuscular Volume 93.3 fL (80-100); Monocytes Absolute Auto 700 /uL (0-900); Monocytes Percent Auto 11.3 % (3-14); Neutrophils Absolute Auto 3400 /uL (1500-7000); Neutrophils Percent Auto 57.2 % (50-75); Platelet Count 248 X10^3/uL (150-400); Red Blood Cell Count 3.89 X10^6/uL (4.0-5.2); Red Cell Distribution Width 12.9 % (11.6-14.8)
== END 2023-04-30 17:55 | disposition home or self-care (01) ==
PROVIDERS: Emergency Provider Emergency Medicine; PCP Internal Medicine
DX: M19.031 Primary osteoarthritis, right wrist (principal)
CPT/HCPCS: 36415; 73110; 73130; 80048; 84550; 85025; 99283; 99284

== ENCOUNTER → 2023-06-21 15:14 | Outpatient (CLI) | payer MEDICARE, SELFPAY ==
[2021-06-18 22:49] VITALS: BMI 25.1
[2023-06-21 17:02] LABS: Alanine Aminotransferase 23 IU/L (<35); Albumin 4.4 g/dL (3.5-5.0); Albumin Globulin Ratio 1.3 (1.0-2.8); Alkaline Phosphatase 90 U/L (38-126); Aspartate Aminotransferase 30 IU/L (14-36); BUN Creatinine Ratio 34.8 (6-22); Bilirubin Total 0.4 mg/dL (0.2-1.3); Blood Urea Nitrogen 24 mg/dL (7-17); Calcium 9.7 mg/dL (8.4-10.2); Carbon Dioxide 23 mmol/L (22-32); Chloride 101 mmol/L (98-107); Cholesterol 222 mg/dL (140-199); Estimated Glomerular Filt Rate > 60 mL/min (>60); Globulin 3.3 g/dL (1.7-4.1); Glucose 88 mg/dL (80-110); HDL Cholesterol 84 mg/dL (40-60); HEMOLYSIS < 15 (0-50); LDL Cholesterol Calculated 121 mg/dL (<100); Potassium 4.4 mmol/L (3.4-5.1); Sodium 134 mmol/L (137-145); Total Protein 7.7 g/dL (6.3-8.2); Triglycerides 85 mg/dL (35-150)
[2023-06-21 17:24] LABS: TSH w/ Reflex to FT4 0.77 uIU/mL (0.47-4.68)
== END ==
PROVIDERS: PCP Internal Medicine; Referring Provider Internal Medicine; Visit Provider Internal Medicine
DX: E78.2 Mixed hyperlipidemia (principal); E03.9 Hypothyroidism, unspecified; I10 Essential (primary) hypertension
CPT/HCPCS: 80053; 80061; 84443

== ENCOUNTER → 2023-07-12 11:03 | Outpatient (CLI) | payer MEDICARE, SELFPAY ==
[2021-06-18 22:49] VITALS: BMI 25.1
--- NOTE | 2023-07-12 11:05 | DI.CT.S_ITS ---
PROCEDURE: CT CHEST ABD PEL W CON INDICATIONS: Angioimmunoblastic T-cell lymphoma, breast and skin cancer TECHNIQUE: After the administration of oral and intravenous contrast, axial sections acquired from the supraclavicular neck to the pubic symphysis. Coronal and sagittal reformats were performed. For radiation dose reduction, the following was used: automated exposure control, adjustment of mA and/or kV according to patient size. COMPARISON: [facility], CT, CT CHEST ABDOMEN PELVIS WITH CONTRAST, 01/04/2023, 12:32. FINDINGS: Image quality: Excellent. CHEST: Lower Neck: No enlarged lymph nodes. Thyroid: Within normal limits. Axillae: No enlarged lymph nodes. Chest Wall: Left chest wall generator with intravenous leads. Left mastectomy. Lungs and Airways: No consolidation or suspicious nodules. Pleura: No pneumothorax or pleural effusions. Heart: Heart size is normal. No pericardial effusion. Thoracic Vessels: The aorta and pulmonary arteries demonstrate normal size. Mediastinum and Lisa: No enlarged lymph nodes. Esophagus: No wall thickening. Moderate hiatal hernia. ABDOMEN: Liver: No solid mass. Gallbladder and biliary tree: No gallstones or biliary dilation. Spleen: Normal size. Pancreas: No ductal dilation. Pancreatic divisum. Adrenal glands: No adrenal nodules. Kidneys: No hydronephrosis. No solid mass. No complex renal cysts which requires follow-up. Stomach and Bowel: Stomach, small bowel loops, and colon are unremarkable. Peritoneum: No abnormal intraperitoneal fluid. No free air. Ventral Wall: Small umbilical hernia containing fat. Abdominal Nodes: No retroperitoneal or mesenteric adenopathy by size criteria. Vessels: Aorta and inferior vena cava are normal in size. 5 mm splenic artery aneurysm, unchanged from prior (series 2, image 53). PELVIS: Pelvic Organs: Unremarkable. Bladder: Unremarkable. Pelvic Nodes: No enlarged lymph nodes. Miscellaneous: No inguinal hernias are seen. Bones: T12 meningioma. Grade 1 anterolisthesis of L4 on L5 secondary to facet arthrosis. IMPRESSION: 1. No lymphadenopathy. 2. Normal size of the spleen. 3. Moderate hiatal hernia. Dictated by: Neville Crews M.D. on 07/12/2023 at 14:18 Approved by: Neville Crews M.D. on 07/12/2023 at 14:23
== END ==
PROVIDERS: PCP Internal Medicine; Referring Provider Internal Medicine Hematology & Oncology; Visit Provider Internal Medicine Hematology & Oncology
DX: C86.5 Angioimmunoblastic T-cell lymphoma (principal); K44.9 Diaphragmatic hernia without obstruction or gangrene
CPT/HCPCS: 71260; 74177; Q9967

== ENCOUNTER → 2023-09-25 12:40 | Outpatient (CLI) | payer MEDICARE, SELFPAY ==
[2021-06-18 22:49] VITALS: BMI 25.1
--- NOTE | 2023-09-25 | DI.MG.S_ITS ---
UNILATERAL RIGHT DIGITAL SCREENING MAMMOGRAM 3D/2D WITH CAD: 09/25/2023 CLINICAL: Routine screening. Personal history of left breast cancer. Comparison is made to exams dated: 08/02/2022 mammogram, 07/14/2021 mammogram, and 05/26/2020 mammogram - [facility]. There are scattered areas of fibroglandular density in the right breast (category b / 25%-50% glandular tissue). Current study was also evaluated with a Computer Aided Detection (CAD) system. No significant masses, calcifications, or other findings are seen in the breast. There has been no significant interval change. IMPRESSION: NEGATIVE There is no mammographic evidence of malignancy. A 1 year screening mammogram is recommended. This exam was interpreted at Station ID: [id number]. NOTE: For mammograms, a report in lay terms will be sent to the patient. Approximately 15% of breast malignancies will not be visualized mammographically. In the management of a palpable breast mass, a negative mammogram must not discourage biopsy of a clinically suspicious lesion. Electronically Signed By: Elma Moore M.D., PH.D swapnil/penrad:09/26/2023 00:18:17 letter sent: Normal Exam ACR BI-RADS Category 1: Negative [id number]
== END ==
LOC: MAMMO 12:44
PROVIDERS: PCP Internal Medicine; Referring Provider Internal Medicine; Visit Provider Internal Medicine
DX: Z12.31 Encounter for screening mammogram for malignant neoplasm of breast (principal); Z85.3 Personal history of malignant neoplasm of breast; R92.321 Mammographic fibroglandular density, right breast
CPT/HCPCS: 77063; 77067

== ENCOUNTER → 2023-12-25 12:17 | Outpatient (CLI) | payer MEDICARE, SELFPAY ==
[2021-06-18 22:49] VITALS: BMI 25.1
[2023-12-25 12:57] LABS: Estimated Glomerular Filt Rate > 60 mL/min (>60)
== END ==
PROVIDERS: PCP Internal Medicine; Referring Provider Radiology Diagnostic Radiology; Visit Provider Radiology Diagnostic Radiology
DX: E03.9 Hypothyroidism, unspecified (principal)
CPT/HCPCS: 36415; 82565

== ENCOUNTER → 2024-01-08 09:52 | Outpatient (CLI) | payer MEDICARE, SELFPAY ==
[2021-06-18 22:49] VITALS: BMI 25.1
--- NOTE | 2024-01-08 09:53 | DI.CT.S_ITS ---
PROCEDURE: CT CHEST ABD PEL W CON INDICATIONS: Angioimmunoblastic T-cell lymphoma TECHNIQUE: After the administration of intravenous contrast, 5 mm thick sections acquired from the lung apices to the symphysis. 5 mm coronal and sagittal reformats were performed, with additional 7 mm MIP reformats through the lungs. For radiation dose reduction, the following was used: automated exposure control, adjustment of mA and/or kV according to patient size. COMPARISON: [facility], CT, CT CHEST ABD PEL W CON, 07/12/2023, 12:21. FINDINGS: Image quality: Excellent. CHEST: Lower Neck: No enlarged lymph nodes. Thyroid: No thyroid nodules which require sonographic follow up, per consensus guidelines. Axillae: No enlarged lymph nodes. Chest Wall: Left mastectomy. Left chest wall generator present. Intravenous leads terminate within the right atrium and right ventricle. Lungs and Pleura: No pneumothorax or pleural effusions. Stable calcified and noncalcified solid pulmonary nodules. Heart: Heart size is enlarged. No pericardial effusion. Thoracic Vessels: The aorta and pulmonary arteries demonstrate normal size. Mediastinum and Lisa: No enlarged lymph nodes. Esophagus: No wall thickening. Moderate hiatal hernia. ABDOMEN: Liver: No solid mass. Gallbladder: No radiopaque gallstones or wall thickening. Biliary ducts: No biliary dilation. Pancreas: No ductal dilation. Pancreatic divisum. Spleen: Normal size and appearance, measuring 7.6 by 4.6 x 8.8 cm. Adrenal Glands: No adrenal nodules. Kidneys and Ureters: No hydronephrosis. No solid mass. No complex renal cystic lesion which requires follow up. Stomach and Bowel: Normal colonic caliber, without significant wall thickening. Moderate colonic stool load. Peritoneum: No abnormal intraperitoneal fluid. No free air. Ventral Wall: No significant ventral hernia. Abdominal Nodes: No retroperitoneal or mesenteric adenopathy by size criteria. Vessels: Aorta and inferior vena cava are normal in size. PELVIS: Pelvic Organs: Unremarkable. Bladder: No bladder wall thickening, accounting for underdistention. Pelvic Nodes: No enlarged lymph nodes. Miscellaneous: No inguinal hernias are seen. Bones: No aggressive osseous abnormality. T12 from angioma. Grade 1 anterolisthesis of L4 on L5 secondary to facet arthrosis. IMPRESSION: No measurable disease. Normal size of the spleen. Dictated by: Neville Crews M.D. on 01/08/2024 at 13:10 Approved by: Neville Crews M.D. on 01/08/2024 at 13:21
== END ==
PROVIDERS: PCP Internal Medicine; Referring Provider Internal Medicine Hematology & Oncology; Visit Provider Internal Medicine Hematology & Oncology
DX: C86.5 Angioimmunoblastic T-cell lymphoma (principal)
CPT/HCPCS: 71260; 74177; Q9967

== ENCOUNTER → 2024-12-17 12:31 | Outpatient (CLI) | payer MEDICARE, SELFPAY ==
[2024-03-25 10:14] VITALS: BMI 25.1
--- NOTE | 2024-12-17 12:32 | DI.ECHO.S_ITS ---
[facility] : : [address] : : [place] : : [id number] : : Phone: [phone] Echocardiogram Report + + :Name: JUANCHO WOMACK Study Date: 12/17/2024 Height: 62 in : :[facility] ReadingLocation: Weight: 143 lb : : Gender: Female BSA: 1.7 m2 : :: 1935 Age: 89 yrs BP: 117/69 mmHg: :Reason For Study: ATRIAL FIBRILLATION : :Ordering Physician: LADY RIOS Performed By: Smita Edwards : :Referring: LADY RIOS : + + Interpretation Summary 1. The left ventricular contractility is mildly compromised. Estimate ejection fraction is 40 to 45% with mild global hypokinesis and paradoxical septal motion. Mild asymmetrical septal hypertrophy noted without obvious obstruction. Grade 1 diastolic dysfunction. 2. The right ventricular contractility is normal. 3. Biatrial enlargement noted. The right and left ventricular cavities are of normal size. 4. Mild to moderate mitral regurgitation. 5. Mild aortic insufficiency. 6. Mild tricuspid regurgitation with estimated pulmonary systolic artery pressures of 28 mmHg. 7. Mild to moderate pulmonic insufficiency. 8. No obvious intracardiac shunts. 9. Hyperechogenic linear densities noted in right atrium and right ventricle consistent with pacemaker wires. 10. No hemodynamically significant pericardial effusion. 11. Low right-sided filling pressures. Conclusion: Mildly compromised left ventricular systolic function with mild to moderate valvular insufficiencies. When compared with previous echocardiogram, there is a decline in systolic function. Procedure: A two-dimensional transthoracic echocardiogram with color flow and Doppler was performed. The study quality was technically adequate. Comparison is made with the echocardiogram of 10/30/2022. The patient was in sinus rhythm with heart rates between 60-64 bpm during the exam. Left Ventricle: The left ventricle is normal in size. Proximal septal thickening is noted. The ejection fraction is estimated to be 40-45%. Right Ventricle: There is a pacemaker lead in the right ventricle. The right ventricle is normal size. The right ventricular systolic function is normal. Atria: The left atrium is mildly dilated. The right atrium is mildly dilated. There is a catheter/pacemaker lead seen in the right atrium. There is no Doppler evidence for an interatrial shunt. Mitral Valve: The mitral valve leaflets appear mildly thickened, but open well. There is mild to moderate mitral regurgitation. Aortic Valve: The aortic valve is trileaflet. The aortic valve opens well. There is no aortic valve stenosis. There is mild aortic regurgitation. Tricuspid Valve: The tricuspid valve leaflets are thin and pliable. There is mild tricuspid regurgitation. The right ventricular systolic pressure is estimated to be at least 28 mmHg based on an estimated right atrial pressure of 3 mm Hg. Pulmonic Valve: The pulmonic valve leaflets are thin and pliable; valve motion is normal. There is mild to moderate pulmonic regurgitation. Great Vessels: The aortic root is normal size. The dimensions of the ascending aorta are normal. The IVC is of normal diameter and collapses greater than 50% with a sniff. This suggests a low right atrial pressure of 3 mm Hg. Pericardium/ Pleura There is no pericardial effusion. There is no pleural effusion. MMode/2D Measurements & Calculations LVIDd: 4.6 cm LVOT diam: 2.0 cm LVIDs: 3.4 cm Ao root diam: 3.1 cm FS: 26.1 % asc Aorta Diam: 3.3 cm EPSS: 0.75 cm Ao Arch Diam (Prox Trans): 3.0 cm IVSd: 0.75 cm LVPWd: 0.80 cm LV whitaker. diameter/BSA (cm/m^2): 2.8 LV sys. diameter/BSA (cm/m^2): 2.1 LA A2 area: 20.1 cm2 RA long axis: 5.6 cm LA A4 area: 23.5 cm2 RA area: 20.1 cm2 LA length (vol): 6.1 cm RA vol: 61.3 ml LA vol: 65.7 ml RA : 37.0 ml/m2 LA vol index: 39.6 ml/m2 IVC diam: 1.6 cm RVD1 (basal): 3.9 cm RVD2 (mid): 3.1 cm TAPSE: 1.9 cm Doppler Measurements & Calculations Ao V2 max: 148.8 cm/sec LVOT Max Augusto: 109.7 cm/sec Ao V2 mean: 100.4 cm/sec LV V1 max P.8 mmHg Ao max P.9 mmHg LV V1 VTI: 23.8 cm Ao mean P.5 mmHg BENSON(I,D): 2.3 cm2 Ao V2 VTI: 32.9 cm BENSON(V,D): 2.4 cm2 sev ratio: 0.72 BENSON indexed to BSA (cm^2/m^2): 1.4 MV E max augusto: 50.7 cm/sec TR max augusto: 249.1 cm/sec MV A max augusto: 80.7 cm/sec TR max P.8 mmHg MV E/A: 0.63 PA V2 max: 85.7 cm/sec Med Peak E' Augusto: 4.1 cm/sec PA V2 mean: 56.9 cm/sec E/E' med: 12.5 PA mean P.5 mmHg Lat Peak E' Augusto: 7.9 cm/sec PA pr(Accel): 23.8 mmHg E/E' lat: 6.4 E/e' average: 9.4 MV dec time: 0.26 sec MR ERO: 0.08 cm2 MR PISA: 1.3 cm2 SV(LVOT): 76.2 ml MR flow rate: 44.1 cm3/sec MR PISA radius: 0.46 cm Reading Physician:AMEYA
== END ==
PROVIDERS: PCP Internal Medicine; Referring Provider Internal Medicine; Visit Provider Internal Medicine
DX: I08.3 Combined rheumatic disorders of mitral, aortic and tricuspid valves (principal); I48.0 Paroxysmal atrial fibrillation; Z95.0 Presence of cardiac pacemaker
CPT/HCPCS: 93306

== ENCOUNTER → 2024-12-23 13:02 | Outpatient (CLI) | payer MEDICARE, SELFPAY ==
[2024-03-25 10:14] VITALS: BMI 25.1
--- NOTE | 2024-12-23 13:03 | DI.MG.S_ITS ---
MM screening mammo unilat RT: 12/23/2024. BI-RADS: 2 CLINICAL: 89-year old female for right screening mammogram. No Tyrer-Cuzick risk score calculation due to the patient's personal history of breast cancer. Status-post left mastectomy with chemotherapy. No first-degree family history of breast cancer. The patient had a prior right breast biopsy. PRIOR EXAMS 09/25/2023, 08/02/2022, 07/14/2021, 06/28/2020, 05/26/2020, 04/11/2019, 04/09/2018, 01/11/2017, 11/22/2015. MAMMOGRAPHY TECHNIQUE: 2D and 3D (tomosynthesis) digital mammographic views obtained, with additional images as needed for full coverage. Current study was also evaluated with a Computer Aided Detection (CAD) system. DENSITY Right: A. The breasts are almost entirely fatty. MAMMOGRAPHY FINDINGS Right: Benign-appearing post-surgical changes noted on the right. Typically-benign vascular calcifications also noted. No significant change from comparison. IMPRESSION: Right * No evidence of malignancy with benign findings. RECOMMENDATIONS Right * Annual screening mammography. OVERALL ASSESSMENT CATEGORY BI-RADS-2: Benign. The [employer] recommends annual screening mammography beginning at age 40 for women with average risk of breast cancer. ELECTRONICALLY SIGNED: Keren Stockton M.D. on 12/24/2024 at 11:43:05 AM PT Interpreting Station ID: [id number]
== END ==
LOC: MAMMO 13:03
PROVIDERS: PCP Internal Medicine; Referring Provider Internal Medicine; Visit Provider Internal Medicine
DX: Z12.31 Encounter for screening mammogram for malignant neoplasm of breast (principal); Z85.3 Personal history of malignant neoplasm of breast; R92.311 Mammographic fatty tissue density, right breast; Z90.12 Acquired absence of left breast and nipple
CPT/HCPCS: 77063; 77067

== ENCOUNTER → 2025-03-09 11:12 | Outpatient (CLI) | payer MEDICARE, SELFPAY ==
[2024-03-25 10:14] VITALS: BMI 25.1
[2025-03-09 12:22] LABS: Hematocrit 30.2 % (36-46); Hemoglobin 12.8 g/dL (12.0-16.0); Mean Corpuscular HGB Conc 42.3 % (30-36); Mean Corpuscular Hemoglobin 43.4 PG (26-34); Mean Corpuscular Volume 102.4 fL (80-100); Platelet Count 233 X10^3/uL (150-400)
[2025-03-09 12:25] LABS: Reticulocyte Count, Percent 0.9 % (1.1-2.6)
[2025-03-09 12:42] LABS: HEMOLYSIS < 15 (0-50); Iron 97 ug/dL (37-170)
[2025-03-09 12:43] LABS: Alanine Aminotransferase 23 IU/L (<35); Albumin 4.5 g/dL (3.5-5.0); Albumin Globulin Ratio 1.5 (1.0-2.8); Alkaline Phosphatase 106 U/L (38-126); Blood Urea Nitrogen 23 mg/dL (7-17); Calcium 9.8 mg/dL (8.4-10.2); Carbon Dioxide 27 mmol/L (22-32); Chloride 103 mmol/L (98-107); Estimated Glomerular Filt Rate > 60 mL/min (>60); Globulin 3.1 g/dL (1.7-4.1); Glucose 90 mg/dL (70-99); HEMOLYSIS < 15 (0-50); Potassium 4.6 mmol/L (3.4-5.1); Sodium 136 mmol/L (137-145); Total Protein 7.6 g/dL (6.3-8.2)
[2025-03-09 12:52] LABS: Percent Iron Saturation 30 % (15-50); Total Iron Binding Capacity 327 ug/dL (265-497); Transferrin 272 mg/dL (206-381)
[2025-03-09 13:14] LABS: TSH w/ Reflex to FT4 0.57 uIU/mL (0.47-4.68)
[2025-03-09 13:19] LABS: Ferritin 111 ng/mL (11-264)
[2025-03-09 13:54] LABS: Vitamin B12 Reflex MMA if <400 849 pg/mL (239-931)
[2025-03-09 14:15] LABS: Folate > 20.0 ng/mL (2.76-20.0)
[2025-03-11 11:10] LABS: Albumin 3.9 g/dL (2.9-4.4); Alpha-1-Globulin 0.3 g/dL (0.0-0.4); Alpha-2-Globulin 0.7 g/dL (0.4-1.0); Gamma Globulin 1.4 g/dL (0.4-1.8)
== END ==
PROVIDERS: PCP Internal Medicine; Referring Provider Internal Medicine; Visit Provider Internal Medicine
DX: E53.8 Deficiency of other specified B group vitamins (principal); D64.9 Anemia, unspecified; C86.5 Angioimmunoblastic T-cell lymphoma
CPT/HCPCS: 36415; 80053; 82607; 82728; 82746; 83540; 83550; 84155; 84165; 84443; 85027; 85045

== ENCOUNTER → 2025-03-16 12:34 | Outpatient (CLI) | payer MEDICARE, SELFPAY ==
[2024-03-25 10:14] VITALS: BMI 25.1
== END ==
PROVIDERS: PCP Internal Medicine; Referring Provider Internal Medicine; Visit Provider Internal Medicine
DX: D64.9 Anemia, unspecified (principal)
CPT/HCPCS: 82270

== ENCOUNTER → 2025-06-29 13:24 | Outpatient (CLI) | payer MEDICARE, SELFPAY ==
[2024-03-25 10:14] VITALS: BMI 25.1
[2025-06-29 14:34] LABS: Alanine Aminotransferase 25 IU/L (<35); Albumin 4.5 g/dL (3.5-5.0); Albumin Globulin Ratio 1.5 (1.0-2.8); Alkaline Phosphatase 90 U/L (38-126); Blood Urea Nitrogen 25 mg/dL (7-17); Calcium 9.4 mg/dL (8.4-10.2); Carbon Dioxide 23 mmol/L (22-32); Chloride 103 mmol/L (98-107); Cholesterol 204 mg/dL (140-199); Estimated Glomerular Filt Rate > 60 mL/min (>60); Globulin 3.1 g/dL (1.7-4.1); Glucose 95 mg/dL (70-99); HDL Cholesterol 84 mg/dL (40-60); HEMOLYSIS < 15 (0-50); Potassium 4.3 mmol/L (3.4-5.1); Sodium 134 mmol/L (137-145); Total Protein 7.6 g/dL (6.3-8.2); Triglycerides 78 mg/dL (35-150)
[2025-06-29 14:39] LABS: Hematocrit 38.0 % (36-46); Hemoglobin 13.1 g/dL (12.0-16.0); Mean Corpuscular HGB Conc 34.6 % (30-36); Mean Corpuscular Hemoglobin 32.7 PG (26-34); Mean Corpuscular Volume 94.5 fL (80-100); Platelet Count 228 X10^3/uL (150-400)
[2025-06-29 15:06] LABS: TSH w/ Reflex to FT4 0.51 uIU/mL (0.47-4.68)
== END ==
PROVIDERS: PCP Internal Medicine; Referring Provider Internal Medicine; Visit Provider Internal Medicine
DX: E03.9 Hypothyroidism, unspecified (principal); D64.9 Anemia, unspecified; E78.2 Mixed hyperlipidemia
CPT/HCPCS: 36415; 80053; 80061; 84443; 85027